=== PATIENT | male | born 1955 | race Caucasian/White ===

== ENCOUNTER 2020-03-21 06:34 | Inpatient (IN) | payer MEDICAID ==
[2020-03-21 07:13] LABS: ALT 17 U/L (4-49); AST 19 U/L (17-59); African American GFR (CKD) >90 (>60 ml/min/1.73 sqM); Albumin 4.3 g/dL (3.5-5.0); Alkaline Phosphatase 67 U/L (38-126); Anion Gap 12 mmol/L; Blood Urea Nitrogen 11 mg/dL (9-20); Calcium 9.5 mg/dL (8.4-10.2); Carbon Dioxide 24 mmol/L (22-30); Chloride 104 mmol/L (98-107); Glucose 241 mg/dL (74-99); Magnesium 1.7 mg/dL (1.6-2.3); Non-African American GFR(CKD) >90 (>60 ml/min/1.73 sqM); Potassium 3.7 mmol/L (3.5-5.1); Sodium 140 mmol/L (137-145); Total Bilirubin 0.4 mg/dL (0.2-1.3); Total Protein 7.3 g/dL (6.3-8.2)
--- NOTE | 2020-03-21 07:21 | ED ---
Arrhythmia/Palpitations HPI - General Source: patient, RN notes reviewed Mode of arrival: ambulatory Limitations: no limitations <Peter Ching - Last Filed: 03/21/20 07:44> <Luis Conklin - Last Filed: 03/21/20 08:04> - General Chief Complaint: Arrhythmia/Palpitations Stated Complaint: Low heart rate Time Seen by Provider: 03/21/20 06:43 - History of Present Illness Initial Comments: This a 64-year-old male presents emergency Department chief complaint of palpitations, dizziness and shortness breath. Patient states that he felt sick last few weeks was treated by his PCP for acute bronchitis. Patient was placed on Augmentin at this time. Patient states that his congestion still lingers. Patient states on he was grocery shopping states he went to bend down to pick something up states that he got lightheaded and nearly passed out at that time. Patient states also yesterday he was driving a tractor in which she felt that he is having another episode where he was in a pass out. Patient denies any current chest pain does have a history of diabetes and hypertension no prior cardiac disease cannot see a environmental lead. Patient has no current abdominal pain, leg swelling, leg pain. (Peter Ching) - Related Data Allergies Allergy/AdvReac Type Severity Reaction Status Date / Time Sulfa (Sulfonamide Allergy Rash/Hives Verified 03/21/20 06:42 Antibiotics) Review of Systems ROS Other: All systems not noted in ROS Statement are negative. <Peter Ching - Last Filed: 03/21/20 07:44> ROS Other: All systems not noted in ROS Statement are negative. <Luis Conklin - Last Filed: 03/21/20 08:04> ROS Statement: Those systems with pertinent positive or pertinent negative responses have been documented in the HPI. Past Medical History Past Medical History: Diabetes Mellitus, Hypertension History of Any Multi-Drug Resistant Organisms: None Reported Past Surgical History: Adenoidectomy, Hernia Repair, Tonsillectomy Past Psychological History: No Psychological Hx Reported Smoking Status: Never smoker Past Alcohol Use History: Occasional Past Drug Use History: None Reported <Peter Ching - Last Filed: 03/21/20 07:44> General Exam Limitations: no limitations General appearance: alert, in no apparent distress Head exam: Present: atraumatic, normocephalic, normal inspection Eye exam: Present: normal appearance, PERRL, EOMI. Absent: scleral icterus, conjunctival injection, periorbital swelling ENT exam: Present: normal exam, normal oropharynx, mucous membranes moist Neck exam: Present: normal inspection, full ROM. Absent: tenderness, meningismus, lymphadenopathy Respiratory exam: Present: normal lung sounds bilaterally. Absent: respiratory distress, wheezes, rales, rhonchi, stridor Cardiovascular Exam: Present: normal rhythm, bradycardia, normal heart sounds. Absent: systolic murmur, diastolic murmur, rubs, gallop, clicks GI/Abdominal exam: Present: soft, normal bowel sounds. Absent: distended, tenderness, guarding, rebound, rigid Neurological exam: Present: alert, oriented X3, CN II-XII intact Skin exam: Present: warm, dry, intact, normal color. Absent: rash <Peter Ching - Last Filed: 03/21/20 07:44> Course Vital Signs 03/21/20 06:37 Temperature 98 F Pulse Rate 32 L Respiratory 18 Rate Blood Pressure 156/66 O2 Sat by Pulse 98 Oximetry EKG Findings - EKG Comments: EKG Findings:: Sinus bradycardia with arrhythmia noted, rate of 43 AZ 168 QRS 156 QT/QTC 486/410 <Peter Ching - Last Filed: 03/21/20 07:44> Medical Decision Making - Lab Data Result diagrams: 03/21/20 06:52 03/21/20 06:52 <Peter Ching - Last Filed: 03/21/20 07:44> - Lab Data Result diagrams: 03/21/20 06:52 03/21/20 06:52 <Luis Conklin - Last Filed: 03/21/20 08:04> - Medical Decision Making 64-year-old male presents emergency department for dizziness, bradycardia. Patient's EKG reveals evidence of bradycardia in the low 40s, patient has dropped in the 30s on monitor. Patient is symptomatic dizziness, near syncopal episode. Patient will have mild hyperglycemia. Patient will be admitted for cardiology evaluation for symptomatically bradycardia, or syncope (Peter Ching) Patient reexamined and reevaluated by myself, Dr. Conklin. Patient resting comfortably in bed. Patient states he has had near syncopal episodes and palpitations. Patient's heart rate has been bradycardic and somewhat irregular. Frequent PVCs. Monitor observed. I do agree with PA findings. This includes diagnostic interpretation and treatment plan. Case was discussed in detail with Dr. Lori jarquin, covering for hospital call, who will admit. Cardiology will be placed on consult. (Luis Conklin) - Lab Data Lab Results 03/21/20 03/21/20 03/21/20 Range/Units 06:52 06:52 06:52 WBC 5.4 (3.8-10.6) k/uL RBC 4.74 (4.30-5.90) m/uL Hgb 14.4 (13.0-17.5) gm/dL Hct 43.4 (39.0-53.0) % MCV 91.5 (80.0-100.0) fL MCH 30.3 (25.0-35.0) pg MCHC 33.2 (31.0-37.0) g/dL RDW 14.0 (11.5-15.5) % Plt Count 209 (150-450) k/uL Neutrophils % 72 % Lymphocytes % 17 % Monocytes % 6 % Eosinophils % 3 % Basophils % 1 % Neutrophils # 3.8 (1.3-7.7) k/uL Lymphocytes # 0.9 L (1.0-4.8) k/uL Monocytes # 0.3 (0-1.0) k/uL Eosinophils # 0.2 (0-0.7) k/uL Basophils # 0.0 (0-0.2) k/uL PT 10.5 (9.0-12.0) sec INR 1.0 (<1.2) APTT 25.7 (22.0-30.0) sec Sodium 140 (137-145) mmol/L Potassium 3.7 (3.5-5.1) mmol/L Chloride 104 (98-107) mmol/L Carbon Dioxide 24 (22-30) mmol/L Anion Gap 12 mmol/L BUN 11 (9-20) mg/dL Creatinine 0.80 (0.66-1.25) mg/dL Est GFR (CKD-EPI)AfAm >90 (>60 ml/min/1.73 sqM) Est GFR (CKD-EPI)NonAf >90 (>60 ml/min/1.73 sqM) Glucose 241 H (74-99) mg/dL Calcium 9.5 (8.4-10.2) mg/dL Magnesium 1.7 (1.6-2.3) mg/dL Total Bilirubin 0.4 (0.2-1.3) mg/dL AST 19 (17-59) U/L ALT 17 (4-49) U/L Alkaline Phosphatase 67 (38-126) U/L Troponin I (0.000-0.034) ng/mL Total Protein 7.3 (6.3-8.2) g/dL Albumin 4.3 (3.5-5.0) g/dL TSH 2.270 (0.465-4.680) mIU/L 03/21/20 Range/Units 06:52 WBC (3.8-10.6) k/uL RBC (4.30-5.90) m/uL Hgb (13.0-17.5) gm/dL Hct (39.0-53.0) % MCV (80.0-100.0) fL MCH (25.0-35.0) pg MCHC (31.0-37.0) g/dL RDW (11.5-15.5) % Plt Count (150-450) k/uL Neutrophils % % Lymphocytes % % Monocytes % % Eosinophils % % Basophils % % Neutrophils # (1.3-7.7) k/uL Lymphocytes # (1.0-4.8) k/uL Monocytes # (0-1.0) k/uL Eosinophils # (0-0.7) k/uL Basophils # (0-0.2) k/uL PT (9.0-12.0) sec INR (<1.2) APTT (22.0-30.0) sec Sodium (137-145) mmol/L Potassium (3.5-5.1) mmol/L Chloride (98-107) mmol/L Carbon Dioxide (22-30) mmol/L Anion Gap mmol/L BUN (9-20) mg/dL Creatinine (0.66-1.25) mg/dL Est GFR (CKD-EPI)AfAm (>60 ml/min/1.73 sqM) Est GFR (CKD-EPI)NonAf (>60 ml/min/1.73 sqM) Glucose (74-99) mg/dL Calcium (8.4-10.2) mg/dL Magnesium (1.6-2.3) mg/dL Total Bilirubin (0.2-1.3) mg/dL AST (17-59) U/L ALT (4-49) U/L Alkaline Phosphatase (38-126) U/L Troponin I <0.012 (0.000-0.034) ng/mL Total Protein (6.3-8.2) g/dL Albumin (3.5-5.0) g/dL TSH (0.465-4.680) mIU/L Disposition Time of Disposition: 07:46 <Peter Ching - Last Filed: 03/21/20 07:44> <Luis Conklin - Last Filed: 03/21/20 08:04> Clinical Impression: Symptomatic bradycardia, Near syncope Disposition: ADMITTED IP TO THIS [facility] Condition: Fair Referrals: Link Gerard DO [Primary Care Provider] - 1-2 days
[2020-03-21 07:27] LABS: Partial Thromboplastin Time 25.7 sec (22.0-30.0); Prothrombin Time 10.5 sec (9.0-12.0)
[2020-03-21 07:30] LABS: Basophils % (A) 1 %; Eosinophils # (A) 0.2 k/uL (0-0.7); Eosinophils % (A) 3 %; HCT 43.4 % (39.0-53.0); HGB 14.4 gm/dL (13.0-17.5); Lymphocytes # (A) 0.9 k/uL (1.0-4.8); Lymphocytes % (A) 17 %; MCH 30.3 pg (25.0-35.0); MCHC 33.2 g/dL (31.0-37.0); MCV 91.5 fL (80.0-100.0); Monocytes # (A) 0.3 k/uL (0-1.0); Monocytes % (A) 6 %; Neutrophils # (A) 3.8 k/uL (1.3-7.7); Neutrophils % (A) 72 %; Platelet Count 209 k/uL (150-450); RBC 4.74 m/uL (4.30-5.90); WBC 5.4 k/uL (3.8-10.6)
[2020-03-21] MEDS ORDERED: ACETAMINOPHEN TAB 325 MG TAB PO PRN ×2 (07:46→16:49)
--- NOTE | 2020-03-21 07:49 | XR ---
EXAMINATION TYPE: XR chest 2V DATE OF EXAM: 03/21/2020 COMPARISON: None INDICATION: Dysrhythmia TECHNIQUE: Frontal and lateral views of the chest are obtained. FINDINGS: The heart size is normal. The pulmonary vasculature is normal. The lungs are clear. IMPRESSION: 1. No acute pulmonary process.
[2020-03-21] MEDS: LISINOPRIL 20 MG TAB PO SCH (10:50)
[2020-03-21] MEDS ORDERED: amLODIPine 10 MG TAB PO STA (10:57)
[2020-03-21] MEDS ORDERED: NALOXONE 0.4 MG/ML 1 ML VIAL IV PRN (11:02)
--- NOTE | 2020-03-21 11:44 | CONS ---
CONSULTATION Mr. Vila is a 64-year-old male with known history of diabetes and hypertension who presented with symptoms of dizziness and dyspnea. He has been having those symptoms for a few weeks. Last week while [facility], he felt dizzy and had a presyncopal episode. He returned from [place] about 3 weeks ago, down in [place], had a bronchitis episode, subsequently was treated with Augmentin upon his return by Dr. Colon and that has felt better, but he continues to be dyspneic and fatigued yesterday. He was working on his tractor when he felt quite dizzy, but did not have any syncope. He denies any palpitation. He checked his blood pressure and found that his heart rate is in the 30s. He denies any history of PND, orthopnea, or peripheral edema. He has no prior cardiac history and his level of activity is stable atrial until recently. He has no history of smoking. He is diabetic and hypertensive. MEDICATIONS: At home include metformin 5 mg 3 times a day, amlodipine 10 mg daily, Actos 30 mg daily, Vasotec 20 mg daily, Trulicity, and Xanax. REVIEW OF SYSTEMS: RESPIRATORY SYSTEM: He has no documented history of asthma and he had a recent bronchitis but no further cough. GI SYSTEM: No recent GI bleed, no peptic ulcer disease. SYSTEM: No dysuria or hematuria. NERVOUS SYSTEM: No stroke or seizure. PHYSICAL EXAMINATION: He is a 64-year-old male, alert, oriented, in no apparent distress. Blood pressure 172/70 with a heart rate in the 50, afebrile. HEAD: Normocephalic. EYES: Sclerae nonicteric. NECK: Good upstroke, no bruit. No jugular venous distention. LUNGS: Clear to auscultation. HEART; Bradycardic, irregular. S1, S2. No S3 with systolic murmur at the base. No diastolic murmur, no rub. ABDOMEN: Soft, nontender. Positive bowel sounds, no organomegaly. EXTREMITIES: No edema. Of note, the patient has been told about a year ago on the EKG "that he had slowing down of the left side of the heart." LAB DATA: Chest x-ray revealed a no evidence of infiltrate. His troponin is less than 0.012. TSH 2.2, BUN and creatinine 11 and 0.8, potassium 3.7, hemoglobin of 14.4. EKG revealed a sinus mechanism with evidence of complete heart block and left bundle branch block. IMPRESSION: 1. Symptoms of dizziness with complete heart block, probable has been going on for a few weeks from that the description. Patient had episode of presyncope but no full syncope about a week ago. 2. Underlying left bundle branch block, probably chronic. 3. Hypertension. 4. Diabetes mellitus. 5. History of obstructive sleep apnea. Patient not using his CPAP. RECOMMENDATION: From the cardiac standpoint, I will obtain echocardiogram with Doppler. I have discussed his case with Dr. Ybarra and with the patient. Patient would require permanent pacemaker implantation. The rationale behind the procedure as well as the rationale was discussed with the patient who is in full understanding and agreement. Thank you for this consult. Will follow with you. CHARLI / ROCCO: [id number] /
[2020-03-21 11:51] LABS: Cholesterol 154 mg/dL (<200); HDL Cholesterol 45 mg/dL (40-60); LDL Cholesterol,Calculated 88 mg/dL (0-99); Triglycerides 106 mg/dL (<150)
[2020-03-21 12:07] LABS: Glucose,Whole Blood 157 mg/dL (75-99)
[2020-03-21] MEDS ORDERED: SODIUM CHLORIDE 0.9% 1,000 ML IV SCH ×2 (12:15)
[2020-03-21] MEDS ORDERED: IV FLUID CONTINUATION 1,000 ML IV ONE (13:29)
[2020-03-21] MEDS ORDERED: PROPOFOL 10 MG/ML 20 ML VIAL IV ONE (13:30)
[2020-03-21] MEDS ORDERED: HEPARIN SODIUM,PORCINE 5,000 UNIT/ML 1 ML VIAL ONE (13:30)
[2020-03-21] MEDS ORDERED: diphenhydrAMINE 50 MG/ML 1 ML VIAL ONE (13:30)
[2020-03-21] MEDS ORDERED: fentaNYL (PF) 50 MCG/ML 2 ML AMP ONE (13:30)
[2020-03-21] MEDS ORDERED: MIDAZOLAM 2 MG/2 ML VIAL ONE (13:30)
[2020-03-21] MEDS ORDERED: IOPAMIDOL-370 50ML BTL INJ ONE (14:10)
[2020-03-21] MEDS: ceFAZolin 1,000 MG in SODIUM CHLORIDE 0.9% IRRIGATIO 250 ML IRRIGATION ONE ×2 (14:13→14:18)
[2020-03-21] MEDS ORDERED: LIDOCAINE 1% INJ 10MG/ML (20 ML MDV) ONE (14:19)
[2020-03-21] MEDS ORDERED: LIDOCAINE 1% INJ 10MG/ML (20 ML MDV) SQ ONE ×3 (14:38→14:46)
--- NOTE | 2020-03-21 16:59 | P.PCN ---
Preoperative Diagnosis: Extended procedure duration Mapping of the His bundle was difficult on account of instability despite the long sheath on account of complete heart block. The His bundle was mapped and although consent His bundle signals were easily obtained, stability was an issue.. After multiple attempts stable position was achieved however his thresholds are elevated. multiple attempts were made to mapped the His bundle, maintained stable lead position. The best His bundle threshold was at through 3.2 V at 1 ms with narrowing of the QRS to less than 120 ms with nonselective pacing. The patient tolerated the procedure without any acute complications
--- NOTE | 2020-03-21 17:25 | PCN ---
PROCEDURE NOTE Mr. Vila is a 64-year-old male patient who has known complete heart block who presented with symptomatic high-grade AV block with an underlying left bundle branch block. His LV function was stated to be within normal limits. He was brought in for biventricular pacemaker implantation with standard pacing. He will be pacing the right ventricle at 100%. Patient was brought to the EP lab in a fasting state. Written informed consent was obtained prior to the procedure. The left shoulder area was prepped and draped as per protocol. Lidocaine 1% was used for local anesthesia. A 4 cm incision was made parallel to the deltopectoral groove, about 1.5 cm medial to it. The incision was carried down to the level of the pectoralis muscle. A subfascial pocket was made. Hemostasis was assured. The left axillary vein was accessed at 3 separate points under fluoroscopy, and via appropriately-sized introducer sheaths 3 leads were positioned. The atrial lead was a Medtronic model #5076, 52 cm in length, and serial #[id number]. This was screwed in the right atrial appendage. P-waves were 6.3 mV, pacing impedance 722 ohms, pacing threshold 1.25 V at 0.4 milliseconds. Ten-volt test was negative. The right ventricular lead was a Medtronic model #5076, 58 cm in length, and serial number [id number]. This was positioned in the RV apex. With pacing, the patient had become dependent. The pacing impedance was 703 ohms. But prior to that it was 18 mV. Pacing threshold was 0.7 V at 0.4 milliseconds. Ten-volt test was negative. The His bundle was mapped with a model #3830 lead, 69 cm in length, and serial number [id number]. This was the long part of the procedure, and although the His bundle was very easily mapped and infra-Hisian block was demonstrated repeatedly, the thresholds were high. Therefore multiple attempts were made to get the best possible threshold. Finally, nonselective pacing was noted up to 3 V at 1 millisecond. Thereafter, right ventricular capture was noted with total loss of capture at 1.25 V at 1 millisecond. This is the best threshold that could be achieved. All leads were secured to the underlying pectoralis fascia after removing the sheaths. The leads were connected to the generator (Cindy CRTP MRI, model #W1TR02, serial #[id number]. Leads and the generator were then placed in the subfascial pocket. The wound was closed in 3 layers and dressed per protocol. RESULT: Successful biventricular pacemaker implantation for complete heart block with underlying left bundle branch block to avoid 100% RV only pacing. The device was programmed to DDD mode with physiologic septal pacing. The patient tolerated the procedure well without any acute complications. MMODL / IJN: [id number] /
[2020-03-21 18:58] VITALS: RESP 18
--- NOTE | 2020-03-21 19:21 | P.HPIM ---
History of Present Illness H&P Date: 03/21/20 Chief Complaint: Syncope 64 year old male with PMH of hypertension and diabetes mellitus presents to the ED after a syncopal episode. Patient reports intermittent dizziness along with blacking out that his been ongoing for the past couple months. Symptoms have been getting more frequent that prompted the patient to come to the ED. Patient states that he was in [employer] last bending down reaching for [employer] when he "blacked out". Yesterday, he was on a tractor trailer when he felt faint for about 1-2 minutes. He measured a pulse of 39 during that time. This was concerning to him which prompted him to come to the ED. Patient otherwise has no complaints. He denies any headache, lower extremity edema, nausea or vomiting, fever chills, cough, chest pain, shortness of breath, palpitations, changes in urination or bowel habits. No changes in appetite or weight. He denies any numbness/weakness/tingling of the extremities. In the ED, vital signs were stable except for pulse of 30. CBC was unremarkable. D-dimer was negative. INR was within normal limits. CMP showed glucose of 241. Troponin was less than 0.0122, EKG showing complete heart block. Cholesterol panel was within normal limits. TSH was normal. Chest x-ray was negative. Patient is admitted for presyncopal symptoms with cardiology consultation for symptomatic bradycardia. Review of Systems Pertinent positives and negatives as discussed in HPI, a complete review of systems was performed and all other systems are negative. Past Medical History Past Medical History: Diabetes Mellitus, Hypertension History of Any Multi-Drug Resistant Organisms: None Reported Past Surgical History: Adenoidectomy, Hernia Repair, Tonsillectomy Past Anesthesia/Blood Transfusion Reactions: No Reported Reaction Past Psychological History: No Psychological Hx Reported Smoking Status: Never smoker Past Alcohol Use History: Occasional Past Drug Use History: None Reported - Past Family History Father Family Medical History: AICD/Pacemaker Additional Family Medical History / Comment(s): QUESTIONABLE CAD Mother Family Medical History: AICD/Pacemaker Additional Family Medical History / Comment(s): questionable CAD Medications and Allergies Home Medications Medication Instructions Recorded Confirmed Type ALPRAZolam [Xanax] 0.5 mg PO HS 03/21/20 03/21/20 History Dulaglutide [Trulicity] 0.75 mg SQ DIEHL@2100 03/21/20 03/21/20 History Enalapril [Vasotec] 20 mg PO DAILY 03/21/20 03/21/20 History Pioglitazone [Actos] 30 mg PO DAILY 03/21/20 03/21/20 History amLODIPine [Norvasc] 10 mg PO HS 03/21/20 03/21/20 History metFORMIN HCL ER [Glucophage Xr] 500 mg PO TID-W/MEALS 03/21/20 03/21/20 History Allergies Allergy/AdvReac Type Severity Reaction Status Date / Time Sulfa (Sulfonamide Allergy Rash/Hives Verified 03/21/20 08:25 Antibiotics) Physical Exam Vitals: Vital Signs Temp Pulse Pulse Resp BP BP Pulse Ox 03/21/20 16:00 18 03/21/20 12:00 98.2 F 18 199/90 99 03/21/20 09:26 98 F 50 L 20 172/77 98 03/21/20 09:06 98.4 F 40 L 18 222/96 100 03/21/20 09:00 50 L 20 172/77 98 03/21/20 08:36 52 L 20 98 03/21/20 08:00 59 L 20 144/79 98 03/21/20 06:37 98 F 32 L 18 156/66 98 Intake and Output 03/21/20 03/21/20 03/21/20 06:59 14:59 22:59 Intake Total 50 240 Output Total 350 Balance 50 -110 Intake: IV 50 Oral 240 Output: Urine 350 Other: Voiding Method Urinal Urinal Weight 102.058 kg 102.058 kg General: [non toxic], [no distress], [appears at stated age] Derm: [warm], [dry] Head: [atraumatic], [normocephalic], [symmetric] Eyes: [EOMI], [no lid lag], [anicteric sclera] Mouth: [no lip lesion], [mucus membranes moist] Cardiovascular: [S1S2 reg, heart rate of 75], [no murmur], [positive posterior tibial pulse bilateral], [left chest dressing clean dry and intact] Lungs: [CTA bilateral], [no rhonchi, no rales] , [no accessory muscle use] Abdominal: [soft], [ nontender to palpation], [no guarding], [no appreciable organomegaly] Ext: [no gross muscle atrophy], [no edema], [no contractures] Neuro: [ CN II-XI grossly intact], [no focal neuro deficits] Psych: [Alert], [oriented], [appropriate affect] Results CBC & Chem 7: 03/21/20 06:52 03/21/20 06:52 Labs: Abnormal Lab Results - Last 24 Hours (Table) 03/21/20 03/21/20 03/21/20 Range/Units 06:52 06:52 12:06 Lymphocytes # 0.9 L (1.0-4.8) k/uL Glucose 241 H (74-99) mg/dL POC Glucose (mg/dL) 157 H (75-99) mg/dL Thrombosis Risk Factor Assmnt - Choose All That Apply Any of the Below Risk Factors Present?: No Each Risk Factor Represents 2 Points: Age 61-74 years Other congenital or acquired thrombophilia - If yes, enter type in comment: No Thrombosis Risk Factor Assessment Total Risk Factor Score: 2 Thrombosis Risk Factor Assessment Level: Low Risk Assessment and Plan Assessment: Presyncope likely from complete heart block post pacemaker Diabetes mellitus with hyperglycemia Hypertension His presyncopal symptoms are likely related to complete heart block. He is underwent pacemaker placement in his heart rate is now 75. D-dimer negative with no concerns for PE. Plans: Continue cefazolin post pacemaker placement. Morphine 2 mg IV every 4 hours as needed for pain. Telemetry monitoring. Follow echocardiogram. [id number] glucose 157. Plans: Insulin sliding scale. Regular Accu-Cheks. Hypoglycemic precautions. BP 172/77. Plans: Continue amlodipine. Continue lisinopril. Monitor vitals, adjust medications as necessary. DVT prophylaxis: [SCD boots] Discussed with: [Patient] Anticipated discharge: [2-3 days] Anticipated discharge place: [Home] A total of [45] minutes was spent on the care of this complex patient more than 50% of the time was spent in counseling and care coordination. Patient names his daughter Katja decision maker if he can't make decisions for himself. Patient elected to be full code.
[2020-03-21] MEDS: MORPHINE SULFATE 2 MG/ML SYRINGE IVP PRN (20:05)
[2020-03-21 20:46] LABS: Glucose,Whole Blood 203 mg/dL (75-99)
[2020-03-21] MEDS ORDERED: amLODIPine 10 MG TAB PO SCH (21:00)
[2020-03-21] MEDS ORDERED: ALPRAZolam 0.5 MG TAB PO SCH (21:00)
[2020-03-22] MEDS: INSULIN ASPART (NovoLOG) 100 UNIT/ML VIAL SQ SCH ×4 (00:18→12:32)
[2020-03-22] MEDS: MORPHINE SULFATE 2 MG/ML SYRINGE IVP PRN (05:06)
[2020-03-22 05:55] LABS: Glucose,Whole Blood 148 mg/dL (75-99)
[2020-03-22 06:27] LABS: African American GFR (CKD) >90 (>60 ml/min/1.73 sqM); Anion Gap 8 mmol/L; Blood Urea Nitrogen 14 mg/dL (9-20); Calcium 8.8 mg/dL (8.4-10.2); Carbon Dioxide 26 mmol/L (22-30); Chloride 104 mmol/L (98-107); Glucose 123 mg/dL (74-99); Non-African American GFR(CKD) 80 (>60 ml/min/1.73 sqM); Potassium 3.3 mmol/L (3.5-5.1); Sodium 138 mmol/L (137-145)
--- NOTE | 2020-03-22 07:26 | XR ---
EXAMINATION TYPE: XR chest 2V DATE OF EXAM: 03/22/2020 COMPARISON: 03/21/2020 HISTORY: Lead placement check TECHNIQUE: Frontal and lateral views of the chest are obtained. FINDINGS: There is a new multi lead left-sided cardiac device placed. One atrial lead and 2 ventricu lar leads appear to be present. No postprocedure pneumothorax seen. New multifocal linear right basil ar and retrocardiac airspace disease likely relates to atelectasis. Chronic slight right hemidiaphrag m elevation. The cardiac silhouette size is within normal limits. No acute osseous process. IMPRESSION: Newly placed multilead left-sided cardiac device with no postprocedural pneumothorax. Mu ltifocal bibasilar linear airspace disease is likely on the basis of atelectasis.
[2020-03-22] MEDS: LISINOPRIL 20 MG TAB PO SCH (08:47)
[2020-03-22] MEDS ORDERED: LISINOPRIL 20 MG TAB PO SCH (09:00)
[2020-03-22] MEDS ORDERED: POTASSIUM CHLORIDE ER 20 MEQ TAB.ER PO STA (09:27)
[2020-03-22] MEDS ORDERED: ATORVASTATIN 40 MG TAB PO SCH (09:30)
--- NOTE | 2020-03-22 10:19 | PN ---
PROGRESS NOTE Mr. Vila is a 64-year-old male who presented with symptoms of dizziness and was found to have a complete heart block with underlying left bundle branch block, underwent a permanent pacemaker implantation yesterday by Dr. Ybarra with bi ventricle pacing. He has some dizziness this morning, but he received pain medication earlier. He denies any chest pain, his breathing is unchanged and stable. No palpitation. No syncope. On the rhythm strip, he has 100% pacing. He had no evidence of ventricular ectopic activity. He continues to be at this time on amlodipine 10 mg daily, lisinopril 40 mg daily. PHYSICAL EXAMINATION: Blood pressure 126/70 with a heart rate in the 70s. LUNGS: Clear. HEART: Regular rate and rhythm, S1, S2. No S3. No rub. Pacemaker site clean. ABDOMEN: Soft, nontender. EXTREMITIES: No edema. LAB DATA: Revealed a BUN and creatinine of 14 and 0.99. His potassium 3.3. His troponin 0.103. He is negative for PCR coronavirus. His echocardiogram report is pending. Chest x-ray revealed no evidence of acute changes. IMPRESSION: 1. Complete heart block status post permanent pacemaker implantation. 2. Hypertension. 3. Diabetes mellitus. 4. Minimal troponin elevation most likely related to the complete heart block. RECOMMENDATION: I will review the results of his echocardiogram. Increase his activity. Will await interrogation of his device. He is doing well. I would expect he should be able to be discharged home today and follow up as an outpatient. He will undergo further cardiac workup as an outpatient in view of his prior history. I will add to his regimen as well a statin because of the history of diabetes mellitus. MMODL / IJN: [id number] /
--- NOTE | 2020-03-22 10:36 | ECHOF ---
Referral Reason:[facility] MEASUREMENTS -------- HEIGHT: 177.8 cm WEIGHT: 102.1 kg BP: 156/66 RVIDd: 3.4 cm (< 3.3) IVSd: 1.1 cm (0.6 - 1.1) LVIDd: 5.0 cm (3.9 - 5.3) LVPWd: 1.3 cm (0.6 - 1.1) IVSs: 1.5 cm LVIDs: 3.1 cm LVPWs: 1.8 cm LAESV Index (A-L): 39.05 ml/m Ao Diam: 3.6 cm (2.0 - 3.7) AV Cusp: 2.4 cm (1.5 - 2.6) MV EXCURSION: 19.089 mm (> 18.000) MV EF SLOPE: 138 mm/s (70 - 150) EPSS: 0.3 cm RAP: 5.00 mmHg RVSP: 34.48 mmHg FINDINGS -------- Resting bradycardia (HR<60bpm). This was a technically difficult study with suboptimal apical views. The left ventricular size is normal. There is severe concentric left ventricular hypertrophy. Ove rall left ventricular systolic function is normal with, an EF between 55 - 60 %. The right ventricle is mildly enlarged. LA is moderately dilated 34-39 ml/m2 The right atrium was not well visualized. 5.0mg of Lumason was utilized for enhancement of images Interatrial and interventricular septum intact. The aortic valve is trileaflet and appears structurally normal. There is no evidence of aortic regu rgitation. There is no evidence of aortic stenosis. Zbnn-ss-pzrliopd mitral regurgitation is present. Mild tricuspid regurgitation present. There is mild pulmonary hypertension. The right ventricular systolic pressure, as measured by Doppler, is 34.48mmHg. There is no pulmonic regurgitation present. The aortic root size is normal. IVC Not well visulized. There is no pericardial effusion. CONCLUSIONS -------- 1. Resting bradycardia (HR<60bpm). 2. This was a technically difficult study with suboptimal apical views. 3. The left ventricular size is normal. 4. There is severe concentric left ventricular hypertrophy. 5. Overall left ventricular systolic function is normal with, an EF between 55 - 60 %. 6. The right ventricle is mildly enlarged. 7. LA is moderately dilated 34-39 ml/m2 8. The right atrium was not well visualized. 9. 5.0mg of Lumason was utilized for enhancement of images 10. Interatrial and interventricular septum intact. 11. The aortic valve is trileaflet and appears structurally normal. 12. There is no evidence of aortic regurgitation. 13. There is no evidence of aortic stenosis. 14. Dkba-jg-gtfvknod mitral regurgitation is present. 15. Mild tricuspid regurgitation present. 16. There is mild pulmonary hypertension. 17. The right ventricular systolic pressure, as measured by Doppler, is 34.48mmHg. 18. There is no pulmonic regurgitation present. 19. The aortic root size is normal. 20. IVC Not well visulized. 21. There is no pericardial effusion. [employer] INSTALLER SUPERVISOR: Patti Edward RDCS
[2020-03-22 11:55] LABS: Glucose,Whole Blood 138 mg/dL (75-99)
[2020-03-22 12:03] VITALS: BP 142/78; PULSE 72; TEMP 98.4
--- NOTE | 2020-03-22 13:38 | P.DS ---
Providers Date of admission: 03/21/20 07:46 Expected date of discharge: 03/22/20 Attending physician: Neema Del Castillo DO Consults: 03/21/20 07:47 Consult Physician Urgent Consulting Provider: Onur Ybarra Consult Reason/Comments: Symptomatic bradycardia, near syncope Do you want consulting provider notified?: Yes Primary care physician: [facility] Course: 64 year old male with PMH of hypertension and diabetes mellitus presents to the ED after a syncopal episode. Patient reports intermittent dizziness along with blacking out that his been ongoing for the past couple months. Symptoms have been getting more frequent that prompted the patient to come to the ED. Patient states that he was in [employer] last bending down reaching for Doritos when he "blacked out". Yesterday, he was on a tractor trailer when he felt faint for about 1-2 minutes. He measured a pulse of 39 during that time. This was concerning to him which prompted him to come to the ED. Patient otherwise has no complaints. He denies any headache, lower extremity edema, nausea or vomiting, fever chills, cough, chest pain, shortness of breath, palpitations, changes in urination or bowel habits. No changes in appetite or weight. He denies any numbness/weakness/tingling of the extremities. In the ED, vital signs were stable except for pulse of 30. CBC was unremarkable. D-dimer was negative. INR was within normal limits. CMP showed glucose of 241. Troponin was less than 0.0122, EKG showing complete heart block. Cholesterol panel was within normal limits. TSH was normal. Chest x-ray was negative. Patient is admitted for presyncopal symptoms with cardiology consultation for symptomatic bradycardia. His syncopal symptoms were thought to be related to complete heart block. Electrophysiology was consulted and he underwent pacemaker placement. D-dimer was negative with no concerns for PE. Bernal virus testing was negative. He was given cefazolin post pacemaker placement. His pain was controlled with morphine as needed. Echocardiogram was ordered which showed EF 55-60% with severe concentric LVH. Patient was seen and examined. No acute events overnight. Patient reports left arm soreness from the procedure yesterday. He did report some dizziness this morning but states likely related to morphine injection. He denies any chest pain, shortness of breath or palpitations. No nausea or vomiting. No fever or chills. Ambulating without any concerns. General: [non toxic], [no distress], [appears at stated age] Derm: [warm], [dry] Head: [atraumatic], [normocephalic], [symmetric] Eyes: [EOMI], [no lid lag], [anicteric sclera] Mouth: [no lip lesion], [mucus membranes moist] Cardiovascular: [S1S2 reg, heart rate of 75], [no murmur], [positive posterior tibial pulse bilateral], [left chest dressing clean dry and intact] Lungs: [CTA bilateral], [no rhonchi, no rales] , [no accessory muscle use] Abdominal: [soft], [ nontender to palpation], [no guarding], [no appreciable organomegaly] Ext: [no gross muscle atrophy], [no edema], [no contractures] Neuro: [no focal neuro deficits] Psych: [Alert], [oriented], [appropriate affect] Presyncope likely from complete heart block post pacemaker Diabetes mellitus with hyperglycemia Stable Diastolic CHF Hypertension His presyncopal symptoms are likely related to complete heart block. He is underwent pacemaker placement in his heart rate is now 72-88. D-dimer negative with no concerns for PE. Plans: Continue cefazolin post pacemaker placement. Morphine 2 mg IV every 4 hours as needed for pain. Telemetry monitoring. Follow echocardiogram. Jlshv-wz-nspl glucose 157. Plans: Insulin sliding scale. Regular Accu-Cheks. Hypoglycemic precautions. Cardiology restarted home medications. Echocardiogram shows severe concentric LVH with conservative systolic function. Plans: Needs adequate blood pressure control. BP 142/78. Plans: Continue amlodipine. Continue lisinopril. Monitor vitals, adjust medications as necessary. [Patient's symptoms have resolved. His heart rate has been within normal limits since pacemaker placement. Pacemaker to be interrogated today. Possible DC today if cardiology cleared. This complex discharge took about 35 minutes to complete. ] Pertinent Studies: Chest x-ray, echocardiogram Procedures: Pacemaker placement Patient Condition at Discharge: Stable Plan - Discharge Summary Discharge Rx Participant: Yes New Discharge Prescriptions: New Atorvastatin [Lipitor] 40 mg PO DAILY #30 tab Continue amLODIPine [Norvasc] 10 mg PO HS Pioglitazone [Actos] 30 mg PO DAILY Enalapril [Vasotec] 20 mg PO DAILY metFORMIN HCL ER [Glucophage Xr] 500 mg PO TID-W/MEALS ALPRAZolam [Xanax] 0.5 mg PO HS Dulaglutide [Trulicity] 0.75 mg SQ DIEHL@2100 Discharge Medication List ALPRAZolam [Xanax] 0.5 mg PO HS 03/21/20 [History] Dulaglutide [Trulicity] 0.75 mg SQ DIEHL@2100 03/21/20 [History] Enalapril [Vasotec] 20 mg PO DAILY 03/21/20 [History] Pioglitazone [Actos] 30 mg PO DAILY 03/21/20 [History] amLODIPine [Norvasc] 10 mg PO HS 03/21/20 [History] metFORMIN HCL ER [Glucophage Xr] 500 mg PO TID-W/MEALS 03/21/20 [History] Atorvastatin [Lipitor] 40 mg PO DAILY #30 tab 03/22/20 [Rx] Follow up Appointment(s)/Referral(s): Onur Ybarra MD [STAFF PHYSICIAN] - 1 Week Link Gerard DO [Primary Care Provider] - 1-2 days Activity/Diet/Wound Care/Special Instructions: Diet: Cardiac, Low salt FU PCP within 3 days of DC. FU Cardiology within 1 week of DC. Take all medications as advised. Come back to ED or call 911 for worsening dizziness, chest pain, shortness of breath, palpitations, Discharge Disposition: HOME SELF-CARE
[2020-03-23] MEDS ORDERED: PIOGLITAZONE 30 MG TAB PO SCH (09:00)
[2020-03-23] MEDS ORDERED: metFORMIN 500 MG TAB PO SCH (17:30)
== END 2020-03-22 16:45 | disposition home or self-care (01) | DRG 243 ==
LOC: EC 06:34 → 3SCARD 07:46
PROVIDERS: ADMIT Internal Medicine; ATTEND Internal Medicine
PROC: 02HK3JZ Insertion of Pacemaker Lead into Right Ventricle, Percutaneous Approach (ICD-10-PCS; 2020-03-21)
PROC: 02HL3JZ Insertion of Pacemaker Lead into Left Ventricle, Percutaneous Approach (ICD-10-PCS; 2020-03-21)
PROC: 0JH607Z Insertion of Cardiac Resynchronization Pacemaker Pulse Generator into Chest Subcutaneous Tissue and Fascia, Open Approach (ICD-10-PCS; principal; 2020-03-21 13:15)
PROC: 02H63JZ Insertion of Pacemaker Lead into Right Atrium, Percutaneous Approach (ICD-10-PCS; 2020-03-21 13:15)
DX: I44.2 Atrioventricular block, complete (principal); I50.32 Chronic diastolic (congestive) heart failure; I11.0 Hypertensive heart disease with heart failure; E11.65 Type 2 diabetes mellitus with hyperglycemia; Z11.59 Encounter for screening for other viral diseases; R00.1 Bradycardia, unspecified; I44.7 Left bundle-branch block, unspecified; G47.33 Obstructive sleep apnea (adult) (pediatric); R79.89 Other specified abnormal findings of blood chemistry; R42 Dizziness and giddiness; T40.2X5A Adverse effect of other opioids, initial encounter; Z79.84 Long term (current) use of oral hypoglycemic drugs; Z79.899 Other long term (current) drug therapy; Z98.890 Other specified postprocedural states; Z87.09 Personal history of other diseases of the respiratory system; Z88.2 Allergy status to sulfonamides; Z82.49 Family history of ischemic heart disease and other diseases of the circulatory system
CPT/HCPCS: 33208; 33225; 36415; 71046; 80048; 80053; 80061; 83735; 84132; 84443; 84484; 85025; 85379; 85610; 85730; 87635; 93005; 93306; 99285

== ENCOUNTER → 2020-06-06 | Outpatient (CLI) | payer MEDICAID ==
--- NOTE | 2020-06-06 20:53 | CONS ---
CONSULTATION REASON FOR CONSULTATION: Sleep apnea. This is a 64-year-old male patient who is diabetic and has hypertension. He was recently admitted after a syncope and was found to be in third-degree AV block. The patient had negative cardiac enzymes. D-dimers were negative. Blood work was negative. Thyroid function tests were within normal limits. He underwent permanent pacemaker insertion. He was referred to me for concerns about sleep apnea, as the patient is feeling tired and sleepy. He is living alone. He is . He is not sure if she snores. He carries a BMI of 33.9 and his [place] score is 6. He denies waking up in the middle of the night for choking or gasping sensation. He goes to bed around 10:30 p.m. and wakes up at 7 a.m. in the morning. He wakes up once or twice in the middle of the night. He has no trouble in going back to sleep. He prefers to sleep on his side and stomach. No angina. No palpitations. He has recently passed a stress test. PAST MEDICAL HISTORY: Third-degree AV block, post pacemaker insertion, hypertension, diabetes mellitus. SURGICAL HISTORY: Surgical history includes tonsillectomy, adenoidectomy, hernia repair and pacemaker insertion. DRUG ALLERGIES: NOT KNOWN. SOCIAL HISTORY: The patient is a nonsmoker. No history of alcoholism. No history of IV drugs. OUTPATIENT MEDICATION LIST: Outpatient medication list includes Trulicity 0.75 mg weekly, Vasotec 20 mg p.o. daily, Actos 30 mg p.o. daily, Norvasc 10 mg p.o. daily, metformin 500 mg p.o. t.i.d., and Xanax 0.5 mg at bedtime. FAMILY HISTORY: His twin brother underwent a pacemaker insertion for a similar reason. He has obstructive sleep apnea. Another brother is obese and underwent bariatric surgery. REVIEW OF SYSTEMS: Fourteen-point review of systems was done. Positive findings were all mentioned above in the history of present illness. No respiratory distress. No nausea, vomiting or abdominal pain. No swelling in the lower extremities. No headache. No focal neurological deficits. No confusion. No heartburn. PHYSICAL EXAMINATION: VITAL SIGNS: BP is 135/78, pulse 78, respirations 16, temperature 98.6, saturation 97% on room air. Height is 5 feet 9 inches, weight is 230 pounds and BMI is 33.9. Neck size 16 inches. GENERAL APPEARANCE: Calm, comfortable, obese. HEAD: Atraumatic, normocephalic. NECK: Supple. No JVD. No goiter or neck masses. Mallampati class I. LUNGS: Clear to auscultation. HEART: Heart sounds are regular rate and rhythm. Normal S1, S2. No S3, S4. No murmurs. Pacemaker pocket is dry, clean and intact. ABDOMEN: Soft, nontender. No organomegaly. EXTREMITIES: No edema. No cyanosis or clubbing. IMPRESSION: 1. Third-degree AV block, status post pacemaker insertion. The patient presented with syncope and was found to be in symptomatic third-degree AV block. Workup was negative and the patient underwent a pacemaker insertion. Cardiac stress test is negative. 2. Concern about obstructive sleep apnea, based on his snoring and a body mass index of 33.9. 3. Positive family history of obstructive sleep apnea. 4. Diabetes mellitus. 5. Hypertension. PLAN: 1. Encourage weight loss. 2. Implement good sleep hygiene measures. 3. A screening home sleep study will be done to rule out obstructive sleep apnea. 4. Follow up with Cardiology regarding pacemaker followup and check. 5. Will continue to follow and will make further recommendations if diagnosis of sleep apnea is established. My overall suspicion for symptomatic obstructive sleep apnea is low. MMODL / IJN: [id number] /
== END | disposition home or self-care (01) ==
LOC: SLEEP 16:35
PROVIDERS: ATTEND Internal Medicine Critical Care Medicine
DX: I44.2 Atrioventricular block, complete (principal); R06.83 Snoring; E11.9 Type 2 diabetes mellitus without complications; I10 Essential (primary) hypertension; Z95.0 Presence of cardiac pacemaker; Z83.6 Family history of other diseases of the respiratory system; Z79.84 Long term (current) use of oral hypoglycemic drugs; Z79.899 Other long term (current) drug therapy
CPT/HCPCS: 99211

== ENCOUNTER 2020-06-08 07:55 | Day surgery (SDC) | payer MEDICAID ==
[2020-06-05 13:57] VITALS: BMI 33.0
[2020-06-08] MEDS ORDERED: SODIUM CHLORIDE 0.9% 500 ML 500 ML IV ONE (08:49)
[2020-06-08 08:59] LABS: African American GFR (CKD) >90 (>60 ml/min/1.73 sqM); Blood Urea Nitrogen 19 mg/dL (9-20); Calcium 9.4 mg/dL (8.4-10.2); Carbon Dioxide 27 mmol/L (22-30); Chloride 101 mmol/L (98-107); Glucose 170 mg/dL (74-99); Non-African American GFR(CKD) >90 (>60 ml/min/1.73 sqM); Potassium 4.1 mmol/L (3.5-5.1)
[2020-06-08 09:23] LABS: Anion Gap 9 mmol/L; Sodium 137 mmol/L (137-145)
[2020-06-08] MEDS ORDERED: SODIUM CHLORIDE 0.9% 1,000 ML IV SCH ×2 (11:45)
[2020-06-08] MEDS ORDERED: IOPAMIDOL-370 50ML BTL INJ ONE ×2 (11:50→14:49)
[2020-06-08] MEDS ORDERED: ceFAZolin 1,000 MG in SODIUM CHLORIDE 0.9% IRRIGATIO 250 ML IRRIGATION ONE (12:03)
[2020-06-08] MEDS ORDERED: SODIUM CHLORIDE 0.9% 1,000 ML IV ONE (13:15)
[2020-06-08] MEDS ORDERED: HYDROmorphone (PF) 1 MG/ML ONE (13:31)
[2020-06-08] MEDS ORDERED: PROPOFOL 10 MG/ML 20 ML VIAL IV ONE (13:31)
[2020-06-08] MEDS ORDERED: KETAMINE 10 MG/ML 20 ML VIAL ONE (13:31)
[2020-06-08] MEDS ORDERED: fentaNYL (PF) 50 MCG/ML 2 ML AMP ONE (13:31)
[2020-06-08] MEDS ORDERED: MIDAZOLAM 2 MG/2 ML VIAL ONE (13:31)
--- NOTE | 2020-06-08 13:36 | P.PCN ---
Preoperative Diagnosis: Diagnosis Patient has complete heart block with bradycardia, symptomatic He underwent a biventricular pacemaker with physiologic septal pacing previously Initially the lead functions were within normal limits on day 1 and after about a week Subsequently follow-up check showed: Elevated His bundle lead thresholds Transiently elevated atrial lead thresholds Patient was brought in for cinefluoroscopy of the leads and left upper extremity venogram Cinefluoroscopy of the leads was performed The RV lead was pulled back into the RV inflow when compared to the initial implant The slack in the atrial lead was reduced The slack in the His bundle lead was also reduced The device was interrogated atrial pacing thresholds and RV pacing thresholds were within normal limits despite the fact that the RV lead was pulled back significantly. In the inflow area the RV lead tip is pointing to is the inferior wall. This is a screw-in lead It is possible micro-dislodgment of the His bundle lead tip with a reduction in the heel of the lead as compared to immediate post implant films Left upper extremity venogram 15 mL of IV dye injected in the left arm Mild stenosis in the subclavian vein noted Plan Revision of RV lead and extraction of the His bundle lead and implantation of a new His bundle lead or a new LV lead This may require implantation of a new generator depending upon the LV lead used In view of the significant dislodgment of the RV lead in those thresholds were excellent, the lead screw is pointing inferiorly and needs to be repositioned back into the apex The His bundle lead needs to be redone completely Discussed with the patient I explained this to his daughter who is a physician mechanic assistant The patient has been using his left arm quite vigorously lifting weights doing yard work and lifting furniture I discussed the dose and don'ts, post implant, once again with the patient in the presence of his daughter
[2020-06-08] MEDS ORDERED: LIDOCAINE 1% INJ 10MG/ML (20 ML MDV) ONE ×2 (13:44)
[2020-06-08] MEDS ORDERED: LIDOCAINE 1% INJ 10MG/ML (20 ML MDV) SQ ONE (14:08)
[2020-06-08 15:27] LABS: Glucose,Whole Blood 170 mg/dL (75-99)
[2020-06-08] MEDS ORDERED: HYDROcodone/APAP 5-325MG 1 EACH TAB PO PRN (17:16)
[2020-06-08] MEDS ORDERED: ACETAMINOPHEN TAB 325 MG TAB PO PRN (17:16)
[2020-06-08] MEDS ORDERED: MAGNESIUM OXIDE 400 MG TAB PO PRN (17:18)
[2020-06-08] MEDS ORDERED: ALPRAZolam 0.5 MG TAB PO PRN (17:18)
--- NOTE | 2020-06-08 17:24 | P.PCN ---
Preoperative Diagnosis: Extended procedure duration This is a very long procedure involving 1. Repositioning of the grossly dislodged RV lead. RV lead is discharged into the RV in [place] area. It was repositioned in the RV apex and screwed in. Prior to this 2-D echo did not show any pericardial effusion 2. Extraction of the His bundle lead 3. Attempted positioning of a new His bundle lead. However the thresholds were elevated consistently despite excellent His bundle signals along with a His bundle current of injury. Multiple attempts were made to the thresholds were always high. Therefore this approach was abandoned in favor of LV lead placement 4. Coronary sinus venogram revealed a large anterior lateral vein as well as the lateral vein that status post posteriorly. Diaphragmatic stimulation is noted all along the large anterior lateral vein. Therefore, the lead was removed from this vein. 5. The lateral vein was targeted with a Medtronic screw-in lead would not pass a very tight U shaped bend in the proximal portion of the vein. The [employer] caregivers non medical was successfully placed beyond this tortuosity with however distally diaphragmatic stimulation was noted. More proximally in the vein there was no diaphragmatic stimulation. Excellent thresholds are noted and this lead position was then accepted. 6. A new biventricular pacemaker generator reimplanted to connect the quadripolar LV lead 7. The old biventricular pacemaker generator was explanted. This was the generator with bipolar LV port
[2020-06-08] MEDS ORDERED: amLODIPine 10 MG TAB PO SCH (17:30)
[2020-06-08] MEDS ORDERED: ACETAMINOPHEN IV (For NPO) 1,000 MG in EMPTY BAG 1 BAG IVPB ONE (17:30)
[2020-06-08] MEDS: SODIUM CHLORIDE 0.9% 1,000 ML IV SCH ×2 (17:55→23:04)
[2020-06-08] MEDS: lisinopriL 20 MG TAB PO SCH (20:07)
--- NOTE | 2020-06-08 22:27 | PCN ---
PROCEDURE NOTE Mr. Vila has complete heart block with severe symptomatic bradycardia. He had a biventricular pacemaker implanted with His bundle pacing with excellent thresholds. However, in followup, His bundle lead capture threshold was very high and almost 6 V at 1 millisecond. Transiently the atrial lead capture had also been elevated. The RV lead capture was fine, but on fluoroscopy the RV lead had grossly dislodged into the RV inflow. The His bundle lead also showed micro-dislodgement with loss of heel. The atrial lead also had lost its heel. The patient has been doing all kinds of yard work, lifting furniture, weed whacking, and was instructed not to do so after this revision for at least 6-8 weeks. A 2D echo prior to the procedure did not show any pericardial effusion, but there was mild LV dysfunction, and the patient does have a history of regular alcohol use as well as underlying hypertension and diabetes. Patient was brought to the EP lab in a fasting state. Written informed consent was obtained prior to the procedure. IV antibiotics were administered. An incision was made directly over the previous surgical site and carried down to the level of the generator. The generator was explanted. The leads were freed from the surrounding capsule. First the His bundle lead was disconnected and the lead sleeve was freed. This was connected to the PSA cable and back-up pacing was performed through this lead while the RV lead was repositioned. The RV lead was unscrewed and then carefully repositioned in the RV apex. The pacing threshold was 0.75 V at 0.4 milliseconds, pacing impedance of 551 ohms. Ten-volt test was negative. The atrial lead was interrogated. P-waves 1.9 mV, pacing impedance 399 ohms, pacing threshold 1.2 V at 0.4 milliseconds. No changes were made in the atrial lead position. Following that, the His bundle lead was extracted and the exit site was oversewn. Access was obtained in the left axillary vein and a His bundle sheath was placed. Via this, His bundle lead was placed. His bundle mapping was performed. We obtained excellent His bundle signals with good RV signals. Good ventricular signals along with it. At times, current of injury was also obtained in the His bundle signal. However, we were not able to get good capture thresholds at any site. Multiple attempts were made for over an hour, and despite getting excellent His bundle signals, either there was an issue with stability of the lead or with high thresholds or rising thresholds after the sheath was removed. Two different His bundle sheaths were placed and used, but a satisfactory position with good thresholds could not be achieved. Therefore this His bundle implant was abandoned in favor of an LV lead implant. A 9-[place] sheath was placed, and via this a coronary sinus catheter was placed in the CS. A sheath was placed in the coronary sinus and venogram was performed. The venogram showed a very large anterolateral vein as well as a lateral vein that coursed posteriorly. This particular lateral vein had a very tight U-shaped bend close to its connection with the main coronary sinus body. First the anterolateral vein was targeted quite easily. However, there was diaphragmatic stimulation noted virtually along the entire vein. A Medtronic screw-in LV lead was placed, but this vein was then abandoned on account of phrenic nerve stimulation. The anterolateral vein was then targeted. This was a difficult vein to access on account of the tortuosity close to the coronary sinus body as well as a very tight U- shaped bend. We were able to access the vein with a subselection, but the Medtronic lead would not pass that tight bend. Therefore, finally a [employer] lead quality technician was used and we were able to cross that tight bend and place it in a very stable position. However, diaphragmatic stimulation was noted at the distal poles, but not in the proximal poles. When poles 3 and 4 were tested, thresholds were 1.2 V at 0.4 milliseconds, pacing impedance of 722 ohms and no diaphragmatic capture. The sheath was then removed. The lead was secured to the underlying pectoralis muscle. All leads were secured. The muscle was oversewn to reduce backbleeding. The pocket was irrigated with antibiotic solution and the old generator was explanted, since it had a bipolar LV port. A new generator was implanted to accommodate the quadripolar LV lead. The new generator implanted was a [employer] quadripolar [employer] model number W4TR02, serial number [id number]. The leads and the generator were then placed in the subfascial pocket. The wound was closed in 3 layers and dressed per protocol. The device was then programmed to DDD mode with simultaneous LV/RV pacing with a standard AV delay. RESULT: Successful biventricular pacemaker implantation with LV lead that was placed in the lateral LV tributary. MMSHWETA / IJN: [id number] /
[2020-06-09 07:14] LABS: Glucose,Whole Blood 138 mg/dL (75-99)
--- NOTE | 2020-06-09 07:19 | XR ---
EXAMINATION TYPE: XR chest 2V DATE OF EXAM: 06/09/2020 COMPARISON: 03/22/2020 HISTORY: Shortness of breath TECHNIQUE: Frontal and lateral views of the chest are obtained. FINDINGS: Multi lead pacer device is noted with leads within the right ventricle and right atrium. Scattered senescent parenchymal changes noted. Hyperinflation compatible with COPD. Persistent increased density right medial lung base. Correlate for underlying infiltrate. Appropriate follow-up advised. Heart size is stable. Mediastinal structures are stable and grossly unremarkable. No evidence for hilar prominence. Degenerative changes dorsal spine. IMPRESSION: 1. Persistent increased density right medial lung base. Correlate for underlying infiltrate. Appropri ate follow-up advised.
[2020-06-09 08:07] VITALS: BP 142/81; PULSE 70; RESP 16; TEMP 98.7
--- NOTE | 2020-06-09 08:10 | P.DS ---
Providers Attending physician: Onur Ybarra Primary care physician: [facility] Course: Patient is doing well. No chest discomfort no dizziness lightheadedness Tenderness in the left pectoral area no hematoma no swelling Sitting comfortably in bed Afebrile blood pressure 132/72 mmHg Heart rate in the 70s, normal heart sounds No lower extremity edema Breath sounds are clear no rhonchi no crackles Impression Symptomatically complete heart block This was related to the His bundle lead in the RV lead is a visible Atrial lead Lead revision, RV Implantation of a new LV lead and new generator Chest x-ray is within normal limits IV antibiotics completed Medical home after pacemaker interrogation Follow-up in the office 5 days Minimize alcohol consumption Strict instructions regarding left arm movements given Plan - Discharge Summary Discharge Rx Participant: No New Discharge Prescriptions: No Action RX: amLODIPine [Norvasc] 10 mg PO W/SUPPER RX: Pioglitazone [Actos] 30 mg PO DAILY RX: metFORMIN HCL ER [Glucophage Xr] 500 mg PO TID-W/MEALS RX: ALPRAZolam [Xanax] 0.5 mg PO HS PRN PRN Reason: sleep RX: Dulaglutide [Trulicity] 0.75 mg SQ DIEHL@2100 Rosuvastatin Calcium [Crestor] 10 mg PO W/LUNCH Hydrochlorothiazide [Hydrodiuril] 25 mg PO W/LUNCH Enalapril Maleate [Vasotec] 20 mg PO BID Magnesium Oxide [Mag-Ox] 250 mg PO DAILY PRN PRN Reason: leg cramps Discharge Medication List RX: ALPRAZolam [Xanax] 0.5 mg PO HS PRN 03/21/20 [History] RX: Dulaglutide [Trulicity] 0.75 mg SQ DIEHL@2100 03/21/20 [History] RX: Pioglitazone [Actos] 30 mg PO DAILY 03/21/20 [History] RX: amLODIPine [Norvasc] 10 mg PO W/SUPPER 03/21/20 [History] RX: metFORMIN HCL ER [Glucophage Xr] 500 mg PO TID-W/MEALS 03/21/20 [History] Enalapril Maleate [Vasotec] 20 mg PO BID 06/05/20 [History] Hydrochlorothiazide [Hydrodiuril] 25 mg PO W/LUNCH 06/05/20 [History] Magnesium Oxide [Mag-Ox] 250 mg PO DAILY PRN 06/05/20 [History] Rosuvastatin Calcium [Crestor] 10 mg PO W/LUNCH 06/05/20 [History] Activity/Diet/Wound Care/Special Instructions: Hold Metformin x48 hours
[2020-06-09] MEDS: lisinopriL 20 MG TAB PO SCH (08:39)
[2020-06-09] MEDS ORDERED: PIOGLITAZONE 30 MG TAB PO SCH (09:00)
--- NOTE | 2020-06-09 10:33 | ECHOF ---
Referral Reason:LV function MEASUREMENTS -------- HEIGHT: 180.3 cm WEIGHT: 103.0 kg BP: RVIDd: 3.1 cm (< 3.3) IVSd: 1.3 cm (0.6 - 1.1) LVIDd: 4.6 cm (3.9 - 5.3) LVPWd: 1.4 cm (0.6 - 1.1) IVSs: 1.7 cm LVIDs: 2.3 cm LVPWs: 1.7 cm Ao Diam: 2.8 cm (2.0 - 3.7) AV Cusp: 2.0 cm (1.5 - 2.6) LA Diam: 3.9 cm (2.7 - 3.8) MV EXCURSION: 12.108 mm (> 18.000) MV EF SLOPE: 72 mm/s (70 - 150) EPSS: 0.7 cm MV E Se: 0.54 m/s MV DecT: 226 ms MV A Se: 0.65 m/s MV E/A Ratio: 0.83 RAP: 5.00 mmHg RVSP: 13.06 mmHg FINDINGS -------- Sinus rhythm. Pacerwire seen in RV and RA. This was a technically difficult study with suboptimal views. The left ventricular size is normal. There is mild concentric left ventricular hypertrophy. Overa ll left ventricular systolic function is low-normal with, an EF between 50 - 55 %. The right ventricle is normal in size. The left atrial size is normal. The right atrial size is normal. 5.0mg of Lumason was utilized for enhancement of images The aortic valve is trileaflet, and appears structurally normal. No aortic stenosis or regurgitation. The mitral valve is normal. There is trace mitral regurgitation. The tricuspid valve appears structurally normal. Trace tricuspid regurgitation present. Right marjorie tricular systolic pressure is normal at < 35 mmHg. There is no pulmonic regurgitation present. The aortic root size is normal. IVC Not well visulized. There is no pericardial effusion. CONCLUSIONS -------- 1. Pacerwire seen in RV and RA. 2. This was a technically difficult study with suboptimal views. 3. There is mild concentric left ventricular hypertrophy. 4. Overall left ventricular systolic function is low-normal with, an EF between 50 - 55 %. 5. The left atrial size is normal. 6. 5.0mg of Lumason was utilized for enhancement of images 7. The aortic valve is trileaflet, and appears structurally normal. No aortic stenosis or regurgitati on. 8. There is trace mitral regurgitation. 9. Trace tricuspid regurgitation present. 10. There is no pulmonic regurgitation present. 11. There is no pericardial effusion. CENTRAL SERVICE TECH: Tamela Wylie RDCS
[2020-06-09] MEDS ORDERED: ATORVASTATIN 20 MG TAB PO SCH (12:30)
[2020-06-09] MEDS ORDERED: hydroCHLOROthiazide 25 MG TAB PO SCH (12:30)
[2020-06-10] MEDS ORDERED: metFORMIN 500 MG TAB PO SCH (17:30)
[2020-06-11] MEDS ORDERED: DULAGLUTIDE 0.75 MG SQ SCH (21:00)
== END 2020-06-09 12:06 | disposition home or self-care (01) ==
LOC: CATHEP 07:55 → 1SOBS 17:07 → CATHEP 06-09 12:06
PROVIDERS: ATTEND Internal Medicine Clinical Cardiac Electrophysiology
DX: I44.2 Atrioventricular block, complete (principal); R00.1 Bradycardia, unspecified; I70.8 Atherosclerosis of other arteries; T82.120A Displacement of cardiac electrode, initial encounter
CPT/HCPCS: 93306; 36005; 33225; 33207; 33215; 75820; 76000; 93281; 80048; 71046; C1769 ×4; C1892; C1730; C1898; C1900; J2250; J0690 ×2; J2001; J3010; J1170; J2704; Q9950; Q9967; 33234

== ENCOUNTER 2020-09-20 14:31 | Observation (INO) | payer MEDICAID ==
[2020-09-20] MEDS ORDERED: SODIUM CHLORIDE 0.9% 500 ML 500 ML IV STA (14:54)
[2020-09-20] MEDS ORDERED: MORPHINE SULFATE 4 MG/ML SYRINGE IV STA (14:55)
[2020-09-20 15:34] LABS: Appearance,Urine Clear (Clear); Bilirubin,Urine Negative (Negative); Blood,Urine Negative (Negative); Color,Urine Light Yellow; Glucose,Urine (UA) 2+ (Negative); Ketones,Urine Negative (Negative); Leukocyte Esterase,Urine Negative (Negative); Nitrite,Urine Negative (Negative); PH, Urine 6.5 (5.0-8.0); Protein,Urine Negative (Negative); Specific Gravity,Urine 1.013 (1.001-1.035); Urobilinogen,Urine <2.0 mg/dL (<2.0)
[2020-09-20 15:35] LABS: Basophils # (A) 0.1 k/uL (0-0.2); Basophils % (A) 1 %; Eosinophils # (A) 0.2 k/uL (0-0.7); Eosinophils % (A) 3 %; HCT 40.3 % (39.0-53.0); HGB 13.7 gm/dL (13.0-17.5); Lymphocytes # (A) 0.9 k/uL (1.0-4.8); Lymphocytes % (A) 13 %; MCH 30.7 pg (25.0-35.0); MCHC 34.1 g/dL (31.0-37.0); Mean Platelet Volume 7.6; Monocytes # (A) 0.5 k/uL (0-1.0); Monocytes % (A) 7 %; Neutrophils # (A) 5.1 k/uL (1.3-7.7); Neutrophils % (A) 76 %; Platelet Count 200 k/uL (150-450); RBC 4.48 m/uL (4.30-5.90); RDW 13.1 % (11.5-15.5); WBC 6.7 k/uL (3.8-10.6)
[2020-09-20 15:43] LABS: ALT 17 U/L (4-49); AST 27 U/L (17-59); African American GFR (CKD) >90 (>60 ml/min/1.73 sqM); Albumin 4.2 g/dL (3.5-5.0); Alkaline Phosphatase 60 U/L (38-126); Anion Gap 8 mmol/L; Blood Urea Nitrogen 18 mg/dL (9-20); Calcium 9.6 mg/dL (8.4-10.2); Carbon Dioxide 28 mmol/L (22-30); Chloride 97 mmol/L (98-107); Glucose 167 mg/dL (74-99); Lipase 64 U/L (23-300); Non-African American GFR(CKD) >90 (>60 ml/min/1.73 sqM); Potassium 4.3 mmol/L (3.5-5.1); Sodium 133 mmol/L (137-145); Total Bilirubin 0.6 mg/dL (0.2-1.3); Total Protein 7.1 g/dL (6.3-8.2)
--- NOTE | 2020-09-20 16:35 | CT ---
EXAMINATION TYPE: CT abdomen pelvis w con DATE OF EXAM: 09/20/2020 COMPARISON: None. HISTORY: Left sided pain with nausea. CT DLP: 1497.1 mGycm, Automated Exposure Control for Dose Reduction was Utilized. CONTRAST: CT scan of the abdomen and pelvis is performed without oral and with IV Contrast, patient injected wi th 100 mL of Isovue 300. FINDINGS: LUNG BASES: Mild to moderate posterior bibasilar linear scarring and/or atelectasis. Partial visualiz ation of pacemaker leads. LIVER/GB: No significant abnormality is appreciated. PANCREAS: No significant abnormality is seen. SPLEEN: No significant abnormality is seen. ADRENALS: No significant abnormality is seen. KIDNEYS: Symmetric cortical medullary uptake and excretion without concerning solid or cystic renal m ass or hydronephrosis noted bilaterally. BOWEL: Suboptimal evaluation without enteric contrast. Stomach poorly distended and suboptimally eval uated. No suspicious small or large bowel dilatation. PROSTATE/SEMINAL VESICLES: Enlarged prostate gland consistent with BPH bulging on bladder base. LYMPH NODES: No greater than 1cm abdominal or pelvic lymph nodes are appreciated. OSSEOUS STRUCTURES: Prominent right lateral spur L3-L4 level. Straightening of lumbar spine. Mild-to- moderate multilevel disc space narrowing. [id number] axial joint space loss both hips. OTHER: Mild fat stranding anterior left mid abdominal peritoneal cavity for reference coronal image 2 3 and sagittal image 82. Hernia defect. IMPRESSION: Small focus of ill-defined fluid and fat stranding anterior left mid abdomen intraperiton eal cavity, possible mesenteric panniculitis. Otherwise unremarkable study.
[2020-09-20] MEDS ORDERED: PIPERACILLIN-TAZOBACTAM 3.375 GM in SODIUM CHLORIDE 0.9% 100 ML IVPB STA (16:54)
[2020-09-20] MEDS ORDERED: HYDROmorphone 1 MG/ML 1 ML SYRINGE IVP STA (17:08)
[2020-09-20] MEDS ORDERED: ACETAMINOPHEN TAB 325 MG TAB PO STA (18:24)
[2020-09-20] MEDS ORDERED: NALOXONE 0.4 MG/ML 1 ML VIAL IV PRN (18:37)
[2020-09-20] MEDS ORDERED: HYDROmorphone 0.5 MG/0.5 ML SYRINGE IVP PRN (18:37)
--- NOTE | 2020-09-20 18:39 | ED ---
General Adult HPI - General Chief complaint: Abdominal Pain Stated complaint: abd pain-sent by PCP Time Seen by Provider: 09/20/20 14:44 Source: patient, RN notes reviewed, old records reviewed Mode of arrival: ambulatory Limitations: no limitations - History of Present Illness Initial comments: 64-year-old male patient to ED for evaluation of abdominal pain. Patient reports he has had periumbilical abdominal pain for the last week. Reports that it is constant. Denies any other acute complaints. Patient does have history of hernia per the child. Has not had any recent abdominal surgeries. Patient does have a pacemaker. Systemic: Pt denies fatigue, fever/chills, rash. Pt denies weakness, night sweats, weight loss. Neuro: Pt denies headache, visual disturbances, syncope or pre-syncope. HEENT: Pt denies ocular discharge or irritation, otalgia, rhinorrhea, pharyngitis or notable lymphadenopathy. Cardiopulmonary: Pt denies chest pain, SOB, heart palpitations, dyspnea on exertion. Abdominal/GI: Pt denies n/v/d. : Pt denies dysuria, burning w/ urination, frequency/urgency. Denies new onset urinary or bowel incontinence. MSK: Pt denies myalgia, loss of strength or function in extremities. Neuro: Pt denies new onset weakness, paresthesias. - Related Data Home Medications Medication Instructions Recorded Confirmed ALPRAZolam [Xanax] 0.5 mg PO HS 03/21/20 09/20/20 Dulaglutide [Trulicity] 0.75 mg SQ DIHEL@2100 03/21/20 09/20/20 Pioglitazone [Actos] 30 mg PO DAILY 03/21/20 09/20/20 amLODIPine [Norvasc] 10 mg PO W/SUPPER 03/21/20 09/20/20 metFORMIN HCL ER [Glucophage Xr] 500 mg PO TID-W/MEALS 03/21/20 09/20/20 Enalapril Maleate [Vasotec] 20 mg PO BID 06/05/20 09/20/20 Magnesium Oxide [Mag-Ox] 250 mg PO DAILY PRN 06/05/20 09/20/20 Rosuvastatin Calcium [Crestor] 10 mg PO W/LUNCH 06/05/20 09/20/20 hydroCHLOROthiazide [Hydrodiuril] 25 mg PO W/LUNCH 06/05/20 09/20/20 Aspirin EC [Ecotrin Low Dose] 81 mg PO W/LUNCH 09/20/20 09/20/20 Allergies Allergy/AdvReac Type Severity Reaction Status Date / Time Sulfa (Sulfonamide Allergy Rash/Hives Verified 09/20/20 16:59 Antibiotics) Review of Systems ROS Statement: Those systems with pertinent positive or pertinent negative responses have been documented in the HPI. ROS Other: All systems not noted in ROS Statement are negative. Past Medical History Past Medical History: Diabetes Mellitus, Hypertension Additional Past Medical History / Comment(s): see Dr Jarrett H&P, no cpap used, constipation/loose stool, bone spurs rt shoulder, "fluid in ear" History of Any Multi-Drug Resistant Organisms: None Reported Past Surgical History: Adenoidectomy, Hernia Repair, Tonsillectomy Additional Past Surgical History / Comment(s): umbilical hernia as infant, kate inguinal hernia Past Anesthesia/Blood Transfusion Reactions: No Reported Reaction Type of Cardiac Device: Permanent Pacemaker Device Placement Date:: 03/2020 Past Psychological History: No Psychological Hx Reported Smoking Status: Never smoker Past Alcohol Use History: Occasional Past Drug Use History: None Reported - Past Family History Father Family Medical History: Deep Vein Thrombosis (DVT) Mother Family Medical History: AICD/Pacemaker Additional Family Medical History / Comment(s): myloplastic syndrome Brother(s) Family Medical History: AICD/Pacemaker General Exam - General Exam Comments Initial Comments: Constitutional: NAD, AOX3, Pt has pleasant affect. HEENT: NC/AT, trachea midline, neck supple, no lymphadenopathy. External ears appear normal, without discharge. Mucous membranes moist. Eyes PERRLA, EOM intact. There is no scleral icterus. No pallor noted. Cardiopulmonary: RRR, no murmurs, rubs or gallops, no JVD noted. Lungs CTAB in anterior and posterior pereira. No peripheral edema. Abdominal exam: Abdomen soft and non-distended. Abdomen tender to palpation in periumbilical region. Bowel sounds active in LLQ. No hepatosplenomegaly. No ecchymosis Neuro: CN II-XII grossly intact. No nuchal rigidity. MSK: Full active ROM in upper and lower extremities, 5/5 stregnth. Limitations: no limitations Course Vital Signs 09/20/20 14:41 Temperature 98.0 F Pulse Rate 75 Respiratory 16 Rate Blood Pressure 168/78 O2 Sat by Pulse 99 Oximetry Medical Decision Making - Medical Decision Making 64-year-old male patient to ED for evaluation of abdominal pain. Patient reports he has had periumbilical abdominal pain for the last week. Reports that it is constant. Denies any other acute complaints. Patient does have history of hernia per the child. Has not had any recent abdominal surgeries. Patient does have a pacemaker. Pt VSS, afebrile. Physical exam displayed mild periumbil lucy tenderness. Laboratory investigations non-impressive. EKG displayed paced rhythm. PT displayed small focus of ill-defined fluid and fat stranding left midabdomen intraperitoneal cavity possible mesenteric panniculitis. Patient initiated on Zosyn will be admitted with surgical consultation. Case discussed with Dr. Dior. - Lab Data Result diagrams: 09/20/20 15:14 09/20/20 15:14 Lab Results 09/20/20 09/20/20 09/20/20 Range/Units 15:14 15:14 15:14 WBC 6.7 (3.8-10.6) k/uL RBC 4.48 (4.30-5.90) m/uL Hgb 13.7 (13.0-17.5) gm/dL Hct 40.3 (39.0-53.0) % MCV 90.0 (80.0-100.0) fL MCH 30.7 (25.0-35.0) pg MCHC 34.1 (31.0-37.0) g/dL RDW 13.1 (11.5-15.5) % Plt Count 200 (150-450) k/uL Neutrophils % 76 % Lymphocytes % 13 % Monocytes % 7 % Eosinophils % 3 % Basophils % 1 % Neutrophils # 5.1 (1.3-7.7) k/uL Lymphocytes # 0.9 L (1.0-4.8) k/uL Monocytes # 0.5 (0-1.0) k/uL Eosinophils # 0.2 (0-0.7) k/uL Basophils # 0.1 (0-0.2) k/uL Sodium 133 L (137-145) mmol/L Potassium 4.3 (3.5-5.1) mmol/L Chloride 97 L (98-107) mmol/L Carbon Dioxide 28 (22-30) mmol/L Anion Gap 8 mmol/L BUN 18 (9-20) mg/dL Creatinine 0.73 (0.66-1.25) mg/dL Est GFR (CKD-EPI)AfAm >90 (>60 ml/min/1.73 sqM) Est GFR (CKD-EPI)NonAf >90 (>60 ml/min/1.73 sqM) Glucose 167 H (74-99) mg/dL Plasma Lactic Acid Christophe (0.7-2.0) mmol/L Calcium 9.6 (8.4-10.2) mg/dL Total Bilirubin 0.6 (0.2-1.3) mg/dL AST 27 (17-59) U/L ALT 17 (4-49) U/L Alkaline Phosphatase 60 (38-126) U/L Troponin I (0.000-0.034) ng/mL Total Protein 7.1 (6.3-8.2) g/dL Albumin 4.2 (3.5-5.0) g/dL Lipase 64 (23-300) U/L Urine Color Light Yellow Urine Appearance Clear (Clear) Urine pH 6.5 (5.0-8.0) Ur Specific [place] 1.013 (1.001-1.035) Urine Protein Negative (Negative) Urine Glucose (UA) 2+ H (Negative) Urine Ketones Negative (Negative) Urine Blood Negative (Negative) Urine Nitrite Negative (Negative) Urine Bilirubin Negative (Negative) Urine Urobilinogen <2.0 (<2.0) mg/dL Ur Leukocyte Esterase Negative (Negative) 09/20/20 09/20/20 Range/Units 15:14 17:54 WBC (3.8-10.6) k/uL RBC (4.30-5.90) m/uL Hgb (13.0-17.5) gm/dL Hct (39.0-53.0) % MCV (80.0-100.0) fL MCH (25.0-35.0) pg MCHC (31.0-37.0) g/dL RDW (11.5-15.5) % Plt Count (150-450) k/uL Neutrophils % % Lymphocytes % % Monocytes % % Eosinophils % % Basophils % % Neutrophils # (1.3-7.7) k/uL Lymphocytes # (1.0-4.8) k/uL Monocytes # (0-1.0) k/uL Eosinophils # (0-0.7) k/uL Basophils # (0-0.2) k/uL Sodium (137-145) mmol/L Potassium (3.5-5.1) mmol/L Chloride (98-107) mmol/L Carbon Dioxide (22-30) mmol/L Anion Gap mmol/L BUN (9-20) mg/dL Creatinine (0.66-1.25) mg/dL Est GFR (CKD-EPI)AfAm (>60 ml/min/1.73 sqM) Est GFR (CKD-EPI)NonAf (>60 ml/min/1.73 sqM) Glucose (74-99) mg/dL Plasma Lactic Acid Christophe 1.4 (0.7-2.0) mmol/L Calcium (8.4-10.2) mg/dL Total Bilirubin (0.2-1.3) mg/dL AST (17-59) U/L ALT (4-49) U/L Alkaline Phosphatase (38-126) U/L Troponin I <0.012 (0.000-0.034) ng/mL Total Protein (6.3-8.2) g/dL Albumin (3.5-5.0) g/dL Lipase (23-300) U/L Urine Color Urine Appearance (Clear) Urine pH (5.0-8.0) Ur Specific [place] (1.001-1.035) Urine Protein (Negative) Urine Glucose (UA) (Negative) Urine Ketones (Negative) Urine Blood (Negative) Urine Nitrite (Negative) Urine Bilirubin (Negative) Urine Urobilinogen (<2.0) mg/dL Ur Leukocyte Esterase (Negative) - EKG Data -: EKG Interpreted by Me (and Dr. Dior ) EKG Comments: Ventricular rate 93, GA to 138, QRS 158, QT/QTc 450/495. Paced rhythm. No concern for acute ischemia. Disposition Clinical Impression: Abdominal pain Disposition: ADMITTED IP TO THIS HOSP Condition: Serious Is patient prescribed a controlled substance at d/c from ED?: No Referrals: Link Gerard DO [Primary Care Provider] - 1-2 days
[2020-09-20] MEDS: ACETAMINOPHEN TAB 325 MG TAB PO PRN (19:40)
[2020-09-20] MEDS: SODIUM CHLORIDE 0.9% 1,000 ML IV SCH (20:05)
[2020-09-20] MEDS ORDERED: MAGNESIUM OXIDE 400 MG TAB PO PRN (20:16)
[2020-09-20 21:05] LABS: Glucose,Whole Blood 234 mg/dL (75-99)
[2020-09-20] MEDS: ALPRAZolam 0.5 MG TAB PO SCH (22:07)
[2020-09-20] MEDS: INSULIN ASPART (NovoLOG) 100 UNIT/ML VIAL SQ SCH (22:07)
[2020-09-20] MEDS: lisinopriL 20 MG TAB PO SCH (22:07)
[2020-09-20] MEDS: amLODIPine 10 MG TAB PO SCH (22:21)
--- NOTE | 2020-09-20 23:26 | HP ---
HISTORY AND PHYSICAL A 64-year-old white male came in with periumbilical abdominal pain, contact with history of hernia his abdomen somewhere, but he has not had any recent abdominal surgeries. He does have a pacemaker. He came with severe pain, diffuse across his abdomen. 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 Started on IV antibiotics per surgeon and pain control. She will see him in the morning. REVIEW OF SYSTEMS: Otherwise, 14-point review of systems negative. HOME MEDICINES: 1. Xanax 0.5 at bedtime. 2. Trulicity 0.75 once a week. 3. Actos 30 mg daily. 4. Norvasc 10 mg daily. 5. Glucophage XR 500 t.i.d. 6. Vasotec 20 b.i.d. 7. Mag oxide 250 daily. 8. Crestor 10 mg daily. 9. HydroDIURIL 25 daily. 10.Aspirin 81 mg daily. ALLERGIES: Allergies are to SULFA. PAST MEDICAL HISTORY: History of diabetes mellitus, hypertension, obesity, history of constipation, loose stools, bone spurs right shoulder, fluid in his ear, adenoidectomy, hernia repair, tonsillectomy, permanent pacemaker. FAMILY HISTORY: Father DVT. Mother with pacemaker, syndrome. Brother, AICD pacemaker. PHYSICAL EXAMINATION: VITAL SIGNS: Temperature 98, pulse 75, blood pressure 160s over 70s, respiratory rate 16 to 18, O2 99. CARDIOVASCULAR: S1, S2. LUNGS: Clear. GI: Diffuse tenderness. Possible hernias throughout his abdomen with some bulging. No guarding. No rebound. MUSCULOSKELETAL: Range of motion full x4. PSYCH: Fair mood and affect. Awake, given appropriate answers. EYES: Pupils equal, round, reactive. Looks stated age. ASSESSMENT: 1. Started on Zosyn for intraperitoneal cavity, mesenteric panniculitis, with acute abdominal pain. 2. Diabetes mellitus. 3. Hypertension. 4. History of pacemaker. Continue with antibiotics, pain control. Surgical consult to see in the morning. MMODL / IJN: [id number] /
[2020-09-21] MEDS: PIPERACILLIN-TAZOBACTAM 3.375 GM in SODIUM CHLORIDE 0.9% 100 ML IVPB SCH ×3 (00:26→16:43)
[2020-09-21 06:20] LABS: Glucose,Whole Blood 144 mg/dL (75-99)
[2020-09-21] MEDS: ASPIRIN 81 MG PO SCH (07:32)
[2020-09-21] MEDS: PIOGLITAZONE 30 MG TAB PO SCH (07:32)
[2020-09-21] MEDS: metFORMIN 500 MG TAB PO SCH ×3 (07:32→16:43)
[2020-09-21] MEDS: lisinopriL 20 MG TAB PO SCH ×2 (07:32→21:47)
[2020-09-21] MEDS: SODIUM CHLORIDE 0.9% 1,000 ML IV SCH (07:33)
[2020-09-21] MEDS: INSULIN ASPART (NovoLOG) 100 UNIT/ML VIAL SQ SCH ×4 (07:33→21:47)
[2020-09-21] MEDS: ACETAMINOPHEN TAB 325 MG TAB PO PRN ×2 (09:42→19:47)
--- NOTE | 2020-09-21 11:21 | P.GSCN ---
<Dyan Ramos - Last Filed: 09/21/20 13:58> History of Present Illness Consult date: 09/21/20 History of present illness: CHIEF COMPLAINT: Abdominal pain HISTORY OF PRESENT ILLNESS: This is a 64-year-old male with a known history of diabetes, hypertension, umbilical hernia as it with repair, inguinal hernias during childhood with repair and pacemaker placement over 12 weeks ago. Patient presents to the emergency room with abdominal pain right above the umbilicus that started about a week ago. Patient reports feeling of firmness to that area. He denies any discoloration. He denies any fever chills or sweats. He denies any nausea or vomiting. Denies any change in bowel habits. Patient started on IV antibiotics in the emergency room. Patient reporting improvement in his abdominal discomfort and mild swelling. PAST MEDICAL HISTORY: See list. PAST SURGICAL HISTORY: See list. MEDICATIONS: See list. ALLERGIES: See list. SOCIAL HISTORY: No illicit drug use. REVIEW OF SYSTEMS: CONSTITUTIONAL: Denies fever or chills. HEENT: Denies blurred vision, vision changes, or eye pain. Denies hemoptysis ENDOCRINE: Denies heat or cold intolerance. CARDIOVASCULAR: Denies chest pain or pressure. RESPIRATORY: No shortness of breath. GASTROINTESTINAL: Denies abdominal pain. Denies nausea or vomiting. NEURO: Denies history of seizures. PSYCH: No depression or suicidal ideation HEMATOLOGIC: Denies bleeding disorders. LYMPHATIC: The patient denies any lumps and bumps around the neck. GENITOURINARY: Denies any blood in urine or increased urinary frequency. MUSCULOSKELETAL: Denies myalgias. Denies joint swelling. Denies decreased range of motion beyond patients baseline. SKIN: Denies pruitis. Denies rash. PHYSICAL EXAM: VITAL SIGNS: Reviewed GENERAL: Well-developed in no acute distress. HEENT: No sclera icterus. Extraocular movements grossly intact. Moist buccal mucosa. Head is atraumatic, normocephalic. Hears conversational speech. No nasal drain age. NECK: Supple without lymphadenopathy. CHEST: Non-labored respirations and equal bilateral excursions. CARDIOVASCULAR: Palpable 2+ radial pulses. ABDOMEN: Soft. Nondistended. Healed scar above the umbilicus. Tenderness with palpation above the umbilicus. No erythema noted. No swelling MUSCULOSKELETAL: No clubbing or cyanosis. NEUROLOGIC: No focal or lateralizing signs. Cranial nerves II through XII grossly intact. PSYCH: Appropriate affect. Alert and oriented to person, place and time. SKIN: Well perfused. Good skin turgor. LABORATORY DATA: WBC 6.7 LFTs normal lipase normal IMAGING: Computed tomography scan abdomen and pelvis showing small focus of ill defined fluid and fat stranding anterior left mid abdomen intraperitoneal cavity, possible mesenteric panniculitis. ASSESSMENT: 1. 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 History of umbilical hernia with repair during infancy 3. History of inguinal hernia repair during childhood 4. Diabetes mellitus type 2 5. Essential hypertension PLAN: -Continue with IV antibiotics -Continue with IV fluids -Continue carb consistent diet -Toradol 15 mg IV every 6 for pain -No surgical intervention needed Thank you for this consultation Physician Career Education Teacher note has been reviewed by physician. Signing provider agrees with the documented findings, assessment, and plan of care. Past Medical History Past Medical History: Diabetes Mellitus, Hypertension Additional Past Medical History / Comment(s): see Dr Jarrett H&P, no cpap used, constipation/loose stool, bone spurs rt shoulder, "fluid in ear" History of Any Multi-Drug Resistant Organisms: None Reported Past Surgical History: Adenoidectomy, Hernia Repair, Pacemaker, Tonsillectomy Additional Past Surgical History / Comment(s): umbilical hernia as infant, kate inguinal hernia Past Anesthesia/Blood Transfusion Reactions: No Reported Reaction Type of Cardiac Device: Permanent Pacemaker Device Placement Date:: 05/10/2020 Past Psychological History: No Psychological Hx Reported, Anxiety Smoking Status: Never smoker Past Alcohol Use History: Occasional Past Drug Use History: None Reported - Past Family History Father Family Medical History: AICD/Pacemaker, Deep Vein Thrombosis (DVT) Mother Family Medical History: AICD/Pacemaker Additional Family Medical History / Comment(s): myloplastic syndrome Brother(s) Family Medical History: AICD/Pacemaker Medications and Allergies Home Medications Medication Instructions Recorded Confirmed Type ALPRAZolam [Xanax] 0.5 mg PO HS 03/21/20 09/20/20 History Dulaglutide [Trulicity] 0.75 mg SQ DIEHL@2100 03/21/20 09/20/20 History Pioglitazone [Actos] 30 mg PO DAILY 03/21/20 09/20/20 History amLODIPine [Norvasc] 10 mg PO W/SUPPER 03/21/20 09/20/20 History metFORMIN HCL ER [Glucophage Xr] 500 mg PO TID-W/MEALS 03/21/20 09/20/20 History Enalapril Maleate [Vasotec] 20 mg PO BID 06/05/20 09/20/20 History Magnesium Oxide [Mag-Ox] 250 mg PO DAILY PRN 06/05/20 09/20/20 History Rosuvastatin Calcium [Crestor] 10 mg PO W/LUNCH 06/05/20 09/20/20 History hydroCHLOROthiazide [Hydrodiuril] 25 mg PO W/LUNCH 06/05/20 09/20/20 History Aspirin EC [Ecotrin Low Dose] 81 mg PO W/LUNCH 09/20/20 09/20/20 History Amoxicillin/Potassium Clav 1 tab PO Q12HR 5 Days #10 tab 09/22/20 Rx [Augmentin 875-125 Tablet] Allergies Allergy/AdvReac Type Severity Reaction Status Date / Time Sulfa (Sulfonamide Allergy Rash/Hives Verified 09/20/20 16:59 Antibiotics) Surgical - Exam Vital Signs Temp Pulse Resp BP Pulse Ox 98.0 F 75 16 168/78 99 09/20/20 14:41 09/20/20 14:41 09/20/20 14:41 09/20/20 14:41 09/20/20 14:41 Results - Labs 09/20/20 15:14 09/20/20 15:14 Abnormal Lab Results - Last 24 Hours (Table) 09/20/20 09/20/20 09/20/20 Range/Units 15:14 15:14 15:14 Lymphocytes # 0.9 L (1.0-4.8) k/uL Sodium 133 L (137-145) mmol/L Chloride 97 L (98-107) mmol/L Glucose 167 H (74-99) mg/dL POC Glucose (mg/dL) (75-99) mg/dL Urine Glucose (UA) 2+ H (Negative) 09/20/20 09/21/20 Range/Units 21:04 06:17 Lymphocytes # (1.0-4.8) k/uL Sodium (137-145) mmol/L Chloride (98-107) mmol/L Glucose (74-99) mg/dL POC Glucose (mg/dL) 234 H 144 H (75-99) mg/dL Urine Glucose (UA) (Negative) Diabetes panel 09/20/20 Range/Units 15:14 Sodium 133 L (137-145) mmol/L Potassium 4.3 (3.5-5.1) mmol/L Chloride 97 L (98-107) mmol/L Carbon Dioxide 28 (22-30) mmol/L BUN 18 (9-20) mg/dL Creatinine 0.73 (0.66-1.25) mg/dL Glucose 167 H (74-99) mg/dL Calcium 9.6 (8.4-10.2) mg/dL AST 27 (17-59) U/L ALT 17 (4-49) U/L Alkaline Phosphatase 60 (38-126) U/L Total Protein 7.1 (6.3-8.2) g/dL Albumin 4.2 (3.5-5.0) g/dL Calcium panel 09/20/20 Range/Units 15:14 Calcium 9.6 (8.4-10.2) mg/dL Albumin 4.2 (3.5-5.0) g/dL Pituitary panel 09/20/20 Range/Units 15:14 Sodium 133 L (137-145) mmol/L Potassium 4.3 (3.5-5.1) mmol/L Chloride 97 L (98-107) mmol/L Carbon Dioxide 28 (22-30) mmol/L BUN 18 (9-20) mg/dL Creatinine 0.73 (0.66-1.25) mg/dL Glucose 167 H (74-99) mg/dL Calcium 9.6 (8.4-10.2) mg/dL Adrenal panel 09/20/20 Range/Units 15:14 Sodium 133 L (137-145) mmol/L Potassium 4.3 (3.5-5.1) mmol/L Chloride 97 L (98-107) mmol/L Carbon Dioxide 28 (22-30) mmol/L BUN 18 (9-20) mg/dL Creatinine 0.73 (0.66-1.25) mg/dL Glucose 167 H (74-99) mg/dL Calcium 9.6 (8.4-10.2) mg/dL Total Bilirubin 0.6 (0.2-1.3) mg/dL AST 27 (17-59) U/L ALT 17 (4-49) U/L Alkaline Phosphatase 60 (38-126) U/L Total Protein 7.1 (6.3-8.2) g/dL Albumin 4.2 (3.5-5.0) g/dL <Vira Delgadillo N - Last Filed: 09/22/20 22:49> History of Present Illness History of present illness: Patient seen and evaluated with above. Please see additional documentation. HISTORY OF PRESENT ILLNESS: The patient is a 64 year old male who reports acute onset of 10/10 periumbilical pain. He has past history of umbilical hernia surgery. He reports having a pacemaker electrode replaced and had been lifting restrictions for over 3 months. After his restrictions were limited, he reports moderate activity. He presented to the emergency room for concern for abdominal wall hernia. Since start of his antibiotic regimen, he reports improvement of his symptoms. PAST MEDICAL HISTORY: See list and reviewed PAST SURGICAL HISTORY: See list and reviewed MEDICATIONS: See list and reviewed ALLERGIES: See list and reviewed SOCIAL HISTORY: See list and reviewed FAMILY HISTORY: See list and reviewed REVIEW OF ORGAN SYSTEMS: CONSTITUTIONAL: No fevers or chills. No recent weight loss. EYES: Denies any trouble with vision. No glasses. HEENT: No difficulties with hearing. No nosebleeds. No difficulty swallowing. RESPIRATORY: Denies pneumonia. Denies any troubles with breathing or dyspnea on exertion. CARDIOVASCULAR: Has pacemaker. Has hypertension. GASTROINTESTINAL: Denies fatty food intolerance. Denies change in bowel habits and gas bloat. GENITOURINARY: Denies any blood in urine or increased urinary frequency. NEUROLOGICAL: Denies any numbness or tingling along the distal extremities. No seizure disorders or headaches. MUSCULOSKELETAL: Denies any back pain, stiffness or joint arthritis. SKIN: No current skin cancer. No rash. PSYCHIATRIC: Denies current depression or suicidal thoughts. He has anxiety. ENDOCRINE: Has blood sugar glucose intolerance. HEME/LYMPHATIC: Denies any lumps and bumps around the neck. No recent deep venous thrombosis. ALLERGY/IMMUNOLOGY: No immunoglobulin therapy. No immune deficiencies. BREAST: Denies current breast lumps, pain or nipple discharge. PHYSICAL EXAM: VITALS: Reviewed CONSTITUTIONAL: Well developed and in no acute distress. EYES: Conjuctivae without sclera icterus. Pupils are equally round and reactive to light. Extraocular movements grossly intact. HEAD, EARS, NOSE, THROAT: Moist buccal mucosa. Head is atraumatic, normocephalic. Hears conversational speech. No nasal drainage. NECK: Supple. No JV distention RESPIRATORY: Non-labored respirations and equal bilateral excursions. No gross wheezes. CARDIOVASCULAR: Regular rate and rhythm. Extremities without moderate edema. Palpable 2+ radial pulses. ABDOMEN: Soft. No peritonitis. Semicircle incision along the umbilicus. No skin changes. LYMPH: No neck lymphadenopathy. MUSCULOSKELETAL: Gait within normal limits. Nail and fingers with good capillary refill. SKIN: Warm and well perfused with good skin turgor. NEUROLOGIC: Cranial nerves II through XII grossly intact. Sensation upper and extremities intact. No focal or lateralizing signs. PSYCH: Appropriate affect. Alert and oriented to person, place and time. Displays appropriate insight. CLINCAL LABS: Reviewed. WBC 6.7. Hemoglobin 13.7 IMAGING: Independently reviewed CT of the abdomen pelvis demonstrates fat stranding at the periumbilical area of the mesentery consistent with mesenteric panniculitis. No evidence of ventral hernia identified. RADIOLOGY: Report reviewed CT of the abdomen and pelvis confirms no ventral hernia findings of panniculitis of the mesentery. ASSESSMENT: 1. 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 Recommend anti-inflammatory such as Toradol 15 mg scheduled. 2. He reports improvement of his abdominal pain with antibiotics. Continue in the interim. 3. Diet as tolerated Thank you for this kind consultation. Surgical - Exam Vital Signs Temp Pulse Resp BP Pulse Ox 98.0 F 75 16 168/78 99 09/20/20 14:41 09/20/20 14:41 09/20/20 14:41 09/20/20 14:41 09/20/20 14:41 Results - Labs 09/20/20 15:14 09/20/20 15:14 Abnormal Lab Results - Last 24 Hours (Table) 09/22/20 09/22/20 Range/Units 06:47 11:13 POC Glucose (mg/dL) 146 H 183 H (75-99) mg/dL Microbiology - Last 24 Hours (Table) 09/20/20 17:54 Blood Culture - Preliminary Blood No Growth after 48 hours Assessment and Plan (1) Mesenteric panniculitis Status: Acute Code(s): K65.4 - SCLEROSING MESENTERITIS SNOMED Code(s): 10 [id number] (2) Periumbilic abdominal tenderness Status: Acute Code(s): R10.815 - PERIUMBILIC ABDOMINAL TENDERNESS SNOMED Code(s): 372543812
[2020-09-21 11:24] LABS: Glucose,Whole Blood 198 mg/dL (75-99)
[2020-09-21] MEDS: hydroCHLOROthiazide 25 MG TAB PO SCH (11:29)
[2020-09-21] MEDS: ATORVASTATIN 20 MG TAB PO SCH (11:29)
[2020-09-21 16:43] LABS: Glucose,Whole Blood 137 mg/dL (75-99)
[2020-09-21] MEDS: KETOROLAC 15 MG/ML 1 ML VIAL IVP SCH (16:43)
[2020-09-21] MEDS: amLODIPine 10 MG TAB PO SCH (16:43)
--- NOTE | 2020-09-21 18:23 | PN ---
PROGRESS NOTE This 64-year-old white male remains in the hospital, seen by Surgery for mesenteric adenitis versus panniculitis. IV antibiotics are helping him. He is on pain control. He is getting better. Abdomen is soft. Mild tenderness in the epigastric area. GI: Normal bowel sounds. CARDIOVASCULAR: S1, S2. Lungs are clear. PSYCH: Fair mood and affect. Discussed with him and his daughter about going home on antibiotics, Trulicity shots in the upper thigh of the leg until abdomen heals. Switch him to oral antibiotics. He will be discharged home in the morning with oral antibiotics and will follow up as an outpatient. MMODL / IJN: [id number] /
[2020-09-21 20:12] LABS: Glucose,Whole Blood 174 mg/dL (75-99)
[2020-09-21] MEDS: ALPRAZolam 0.5 MG TAB PO SCH (21:48)
[2020-09-22] MEDS: KETOROLAC 15 MG/ML 1 ML VIAL IVP SCH ×3 (01:03→12:00)
[2020-09-22] MEDS: PIPERACILLIN-TAZOBACTAM 3.375 GM in SODIUM CHLORIDE 0.9% 100 ML IVPB SCH ×2 (01:03→07:39)
[2020-09-22] MEDS: SODIUM CHLORIDE 0.9% 1,000 ML IV SCH ×2 (05:00→11:53)
[2020-09-22 06:48] LABS: Glucose,Whole Blood 146 mg/dL (75-99)
[2020-09-22] MEDS: metFORMIN 500 MG TAB PO SCH ×2 (07:35→12:01)
[2020-09-22] MEDS: INSULIN ASPART (NovoLOG) 100 UNIT/ML VIAL SQ SCH ×2 (07:35→12:01)
[2020-09-22] MEDS: lisinopriL 20 MG TAB PO SCH (07:35)
[2020-09-22] MEDS: PIOGLITAZONE 30 MG TAB PO SCH (07:36)
[2020-09-22 07:42] VITALS: BP 152/81; PULSE 71; RESP 16; TEMP 97.5
[2020-09-22 11:15] LABS: Glucose,Whole Blood 183 mg/dL (75-99)
[2020-09-22] MEDS: ASPIRIN 81 MG PO SCH (12:01)
[2020-09-22] MEDS: ATORVASTATIN 20 MG TAB PO SCH (12:01)
[2020-09-22] MEDS: hydroCHLOROthiazide 25 MG TAB PO SCH (12:02)
--- NOTE | 2020-09-22 14:24 | P.PN ---
<Dyan Ramos - Last Filed: 09/22/20 14:22> Subjective Progress Note Date: 09/22/20 CHIEF COMPLAINT: Abdominal pain HISTORY OF PRESENT ILLNESS: Patient is being followed and treated for mesenteric panniculitis. His abdominal pain has improved greatly. He is tolerating diet. He's having regular bowel movements. Denies any nausea or vomiting.He is afebrile PHYSICAL EXAM: VITAL SIGNS: Reviewed GENERAL: Well-developed in no acute distress. HEENT: No sclera icterus. Extraocular movements grossly intact. Moist buccal mucosa. Head is atraumatic, normocephalic. Hears conversational speech. No nasal drainage. NECK: Supple without lymphadenopathy. CHEST: Non-labored respirations and equal bilateral excursions. CARDIOVASCULAR: Regular rate with regular rhythm. Palpable 2+ radial pulses. ABDOMEN: Soft. Nondistended. Nontender. MUSCULOSKELETAL: No clubbing or cyanosis. NEUROLOGIC: No focal or lateralizing signs. Cranial nerves II through XII grossly intact. PSYCH: Appropriate affect. Alert and oriented to person, place and time. SKIN: Well perfused. Good skin turgor. ASSESSMENT: 1. Abdominal pain Secondary to mesenteric panniculitis 2. History of umbilical hernia with repair during infancy 3. History of inguinal hernia repair during childhood 4. Diabetes mellitus type 2 5. Essential hypertension PLAN: -Patient is stable for discharge from surgical standpoint -Agree with continuing Augmentin after discharge Physician Rental Sales Associate note has been reviewed by physician. Signing provider agrees with the documented findings, assessment, and plan of care. Objective - Vital Signs Vital signs: Vital Signs Temp 97.5 F L 09/22/20 07:41 Pulse 71 09/22/20 07:41 Resp 16 09/22/20 07:41 BP 152/81 09/22/20 07:41 Pulse Ox 97 09/22/20 07:41 Intake & Output 09/21/20 09/22/20 09/22/20 18:59 06:59 18:59 Intake Total 1730 Balance 1730 Intake: Intake, IV Titration 550 Amount Piperacillin-Tazobactam 3 100 .375 gm In Sodium Chloride 0.9% 100 ml @ 25 mls/hr IVPB Q8HR [facility] Rx# :[id number] Sodium Chloride 0.9% 1, 450 000 ml @ 75 mls/hr IV . [id number] [facility] Rx#:[id number] Oral 1180 Other: Voiding Method Toilet Toilet # Voids 2 1 3 - Labs CBC & Chem 7: 09/20/20 15:14 09/20/20 15:14 Labs: Abnormal Lab Results - Last 24 Hours (Table) 09/21/20 09/21/20 09/22/20 Range/Units 16:41 20:11 06:47 POC Glucose (mg/dL) 137 H 174 H 146 H (75-99) mg/dL 09/22/20 Range/Units 11:13 POC Glucose (mg/dL) 183 H (75-99) mg/dL Microbiology - Last 24 Hours (Table) 09/20/20 17:54 Blood Culture - Preliminary Blood No Growth after 24 hours <Vira Delgadillo - Last Filed: 09/22/20 22:53> Subjective Patient seen and evaluated with above. Please see additional documentation. HISTORY OF PRESENT ILLNESS: The patient is a 64 year old male admitted with abdominal pain due to mesenteric panniculitis. Since admission, abdominal pain has improved. No nausea and vomiting. He is tolerating diet. REVIEW OF ORGAN SYSTEMS: No fevers or chills. No nausea or vomiting. PHYSICAL EXAM: VITALS: Reviewed CONSTITUTIONAL: Well developed and in no acute distress. EYES: Conjuctivae without sclera icterus. Pupils are equally round and reactive to light. Extraocular movements grossly intact. HEAD, EARS, NOSE, THROAT: Moist buccal mucosa. Head is atraumatic, normocephalic. Hears conversational speech. No nasal drainage. RESPIRATORY: Non-labored respirations and equal bilateral excursions. No gross wheezes. CARDIOVASCULAR: Palpable 2+ radial pulses. ABDOMEN: Soft. No peritonitis. Semicircle incision along the umbilicus. No skin changes. MUSCULOSKELETAL: No clubbing, cyanosis, edema SKIN: Warm and well perfused with good skin turgor. NEUROLOGIC: Cranial nerves II through XII grossly intact. Sensation upper and extremities intact. No focal or lateralizing signs. PSYCH: Appropriate affect. Alert and oriented to person, place and time. Displays appropriate insight. CLINCAL LABS: No new labs. ASSESSMENT: 1. 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 Continue with anti-inflammatories upon discharge. 2. May continue with antibiotics upon discharge 3. Diet as tolerated Objective - Vital Signs Vital signs: Vital Signs Temp 97.5 F L 09/22/20 07:41 Pulse 71 09/22/20 07:41 Resp 16 09/22/20 07:41 BP 152/81 09/22/20 07:41 Pulse Ox 97 09/22/20 07:41 Intake & Output 09/22/20 09/22/20 09/23/20 06:59 18:59 06:59 Intake Total 1730 Balance 1730 Intake: Intake, IV Titration 550 Amount Piperacillin-Tazobactam 3 100 .375 gm In Sodium Chloride 0.9% 100 ml @ 25 mls/hr IVPB Q8HR [facility] Rx# :[id number] Sodium Chloride 0.9% 1, 450 000 ml @ 75 mls/hr IV . [id number] [facility] Rx#:[id number] Oral 1180 Other: Voiding Method Toilet # Voids 1 3 - Labs CBC & Chem 7: 09/20/20 15:14 09/20/20 15:14 Labs: Abnormal Lab Results - Last 24 Hours (Table) 09/22/20 09/22/20 Range/Units 06:47 11:13 POC Glucose (mg/dL) 146 H 183 H (75-99) mg/dL Microbiology - Last 24 Hours (Table) 09/20/20 17:54 Blood Culture - Preliminary Blood No Growth after 48 hours Assessment and Plan (1) Mesenteric panniculitis Status: Acute Code(s): K65.4 - SCLEROSING MESENTERITIS SNOMED Code(s): 7923226084274244 (2) Periumbilic abdominal tenderness Status: Acute Code(s): R10.815 - PERIUMBILIC ABDOMINAL TENDERNESS SNOMED Code(s): 946226539 (3) Diabetes type 2, uncontrolled Status: Acute Code(s): E11.65 - TYPE 2 DIABETES MELLITUS WITH HYPERGLYCEMIA SNOMED Code(s): 751929238 (4) Hypertensive heart disease Status: Acute Code(s): I11.9 - HYPERTENSIVE HEART DISEASE WITHOUT HEART FAILURE SNOMED Code(s): 00375606 (5) Pacemaker Status: Acute Code(s): Z95.0 - PRESENCE OF CARDIAC PACEMAKER SNOMED Code(s): 936846997
--- NOTE | 2020-09-22 16:33 | DS ---
DISCHARGE SUMMARY DATE OF SERVICE: 09/22/2020 FINAL DIAGNOSES: 1. Abdominal pain, possibly recent panniculitis. 2. Diabetes mellitus type 2. 3. Hypertension. 4. History of pacemaker. DISCHARGE DISPOSITION: The patient will be discharged in A stable condition with guarded prognosis. HISTORY OF PRESENT ILLNESS: This is a 64-year-old gentleman with a past medical history of multiple medical problems being followed by Dr. Gerard the outpatient, admitted with abdominal pain. The CAT scan showed possibly mesenteric panniculitis. Patient treated empirically with antibiotics, patient improved significantly. Patient discharged in stable condition. Guarded prognosis. On exam, vitals are stable. CARDIOVASCULAR: S1, S2. ABDOMEN: Soft. NERVOUS SYSTEM: No focal deficits. DISCHARGE INSTRUCTIONS: 1. Diet is cardiac diet. 2. Activity limited until followup. 3. Follow up with followup with Dr. Gerard in 2-3 days. 4. Follow up with Surgery in 1 week or p.r.n. MEDICATIONS: 1. Actos 30 mg p.o. daily. 2. Crestor 10 mg with lunch. 3. Ecotrin 81 mg p.o. daily. 4. Glucophage 500 mg t.i.d. 5. HydroDIURIL 25 mg with lunch. 6. Magnesium oxide 250 mg daily. 7. Norvasc 10 mg with supper. 8. Trulicity 0.75 mg subcu Friday. 9. Vasotec 20 mg p.o. b.i.d. 10.Xanax 0.5 mg q.h.s. 11.Augmentin 1 p.o. b.i.d. for 5 days. Once again, the patient will be discharged in a stable condition with guarded prognosis. MMODL / IJN: [id number] /
[2020-09-24] MEDS ORDERED: NON FORMULARY DRUG (Dulaglutide [Trulicity] 0.75 MG/0.5 ML Pen.Injctr) SQ SCH (21:00)
== END 2020-09-22 13:16 | disposition home or self-care (01) ==
LOC: EC 14:31 → 1SOBS 18:37
PROVIDERS: ADMIT Family Medicine; ATTEND Family Medicine
DX: R10.33 Periumbilical pain (principal); E11.65 Type 2 diabetes mellitus with hyperglycemia; I11.9 Hypertensive heart disease without heart failure; Z79.84 Long term (current) use of oral hypoglycemic drugs; Z95.0 Presence of cardiac pacemaker
CPT/HCPCS: 96361 ×3; 96366 ×3; 96375 ×2; 96376 ×2; 96365; 99285; 36415; 93005; 80053; 83605; 83690; 84484; 85025; 81003; 87040; 74177; G0378 ×3; J2543 ×3; J2270; J1170 ×2; J1885 ×2; Q9967

== ENCOUNTER → 2021-05-28 | Outpatient (CLI) | payer MEDICARE ==
--- NOTE | 2021-05-28 11:08 | CT ---
EXAMINATION TYPE: CT shoulder RT wo con DATE OF EXAM: 05/28/2021 COMPARISON: None HISTORY: 65-year-old male M75.121, Right shoulder rotator cuff tear TECHNIQUE: Contiguous axial scanning of the right shoulder without IV contrast. Coronal and sagittal reconstructions performed. 3-D reconstructions generated on a dedicated workstation. CT DLP: 268 mGycm Automated exposure control for dose reduction was used. FINDINGS: Left anterior chest wall pacemaker generator with right atrial, right ventricular, and coronary sinus leads. There is moderate degenerative change at the AC joint. No os acromiale. No Hill-Sachs deformi ty seen. There is severe degenerative change at the glenohumeral joint with [id number] articulation, margina l spurring, and a 8 mm subchondral geode posterior acetabulum. There is mild thinning of the glenoid bone stalk and overall 10 degrees of glenoid retroversion. There is either prominent distention of the subcoracoid bursa versus a ganglion cyst extending along the superior subscapularis myotendinous junction measuring up to 4.8 x 3.1 x 5.1 cm, reference axial image 26 and coronal image 24. Some tendon fibers are noted in the subacromial space. There is only mild decrease in muscle bulk of the supraspinatus and infraspinatus tendons though moderate fatty atrophy of the teres minor. No evid ent mass lesion within the quadrilateral space. No acute fracture, subluxation, dislocation. IMPRESSION: 1. SEVERE GH JOINT OA WITH ONLY MILD THINNING OF GLENOID BONE STOCK AND 10 DEGREES OF GLENOID RETROVE RSION. 2. THERE IS ISOLATED FATTY ATROPHY OF THE TERES MINOR WHICH MAY BE IDIOPATHIC OR MAY BE SEEN WITH TIANA DRILATERAL SPACE SYNDROME. NO EVIDENT MASS LESION IS IDENTIFIED IN THIS SPACE. 3. NO SIZABLE ROTATOR CUFF TEAR IS APPARENT BY CT. NOTE, EITHER A GANGLION CYST OR FLUID DISTENTION O F THE ANTERIOR SUBSCAPULARIS RECESS WITH MASS EFFECT ON TO THE SUBSCAPULARIS MYOTENDINOUS JUNCTION. T HIS CYSTIC STRUCTURE MEASURES UP TO 5.1 X 4 X 3.1 CM.
== END | disposition home or self-care (01) ==
LOC: RADCTMAIN 06:56
PROVIDERS: ATTEND Orthopaedic Surgery Sports Medicine
DX: M75.101 Unspecified rotator cuff tear or rupture of right shoulder, not specified as traumatic (principal); M19.011 Primary osteoarthritis, right shoulder; R22.31 Localized swelling, mass and lump, right upper limb

== ENCOUNTER → 2021-07-09 | Outpatient (CLI) | payer MEDICARE ==
[2021-07-09 11:17] LABS: HCT 39.8 % (39.0-53.0); HGB 13.4 gm/dL (13.0-17.5); MCH 30.5 pg (25.0-35.0); MCHC 33.8 g/dL (31.0-37.0); MCV 90.1 fL (80.0-100.0); Mean Platelet Volume 7.4; Platelet Count 215 k/uL (150-450); RBC 4.41 m/uL (4.30-5.90); RDW 13.8 % (11.5-15.5); WBC 4.1 k/uL (3.8-10.6)
[2021-07-09 11:32] LABS: INR 0.9 (<1.2); Partial Thromboplastin Time 25.3 sec (22.0-30.0); Prothrombin Time 10.2 sec (9.0-12.0)
[2021-07-09 11:35] LABS: ALT 17 U/L (4-49); AST 23 U/L (17-59); African American GFR (CKD) >90 (>60 ml/min/1.73 sqM); Alkaline Phosphatase 59 U/L (38-126); Anion Gap 9 mmol/L; Blood Urea Nitrogen 17 mg/dL (9-20); Calcium 9.6 mg/dL (8.4-10.2); Carbon Dioxide 29 mmol/L (22-30); Chloride 97 mmol/L (98-107); Glucose 167 mg/dL (74-99); Non-African American GFR(CKD) >90 (>60 ml/min/1.73 sqM); Potassium 4.1 mmol/L (3.5-5.1); Sodium 135 mmol/L (137-145); Total Bilirubin 0.4 mg/dL (0.2-1.3); Total Protein 6.6 g/dL (6.3-8.2)
[2021-07-09 11:46] LABS: Appearance,Urine Clear (Clear); Bilirubin,Urine Negative (Negative); Blood,Urine Negative (Negative); Color,Urine Yellow; Glucose,Urine (UA) Negative (Negative); Ketones,Urine Negative (Negative); Leukocyte Esterase,Urine Negative (Negative); Nitrite,Urine Negative (Negative); PH, Urine 6.5 (5.0-8.0); Protein,Urine Negative (Negative); Specific Gravity,Urine 1.016 (1.001-1.035); Urobilinogen,Urine <2.0 mg/dL (<2.0)
== END | disposition home or self-care (01) ==
LOC: LABPAT 09:16
PROVIDERS: ATTEND Orthopaedic Surgery Sports Medicine
DX: Z01.812 Encounter for preprocedural laboratory examination (principal)
CPT/HCPCS: 80053; 81003; 85027; 85610; 85730; 87070

== ENCOUNTER → 2021-07-09 | Outpatient (CLI) | payer MEDICARE ==
[2021-07-09 16:19] LABS: Chol/HDL Ratio 2.84
[2021-07-09 18:22] LABS: Hemoglobin A1C 8.3 % (4.0-6.0)
[2021-07-09 19:11] LABS: Urine Creatinine 138.3 mg/dL
[2021-07-09 19:54] LABS: Microalbumin Creatinine Ratio <30 mg/g Creat (0-30)
== END | disposition home or self-care (01) ==
LOC: LABWHC1 09:12
PROVIDERS: ATTEND Internal Medicine Interventional Cardiology
DX: E11.9 Type 2 diabetes mellitus without complications (principal); E78.2 Mixed hyperlipidemia; I10 Essential (primary) hypertension
CPT/HCPCS: 36415; 80061; 82043; 82570; 83036

== ENCOUNTER 2021-07-19 07:41 | Observation (INO) | payer MEDICARE ==
[2021-07-16 13:34] VITALS: BMI 32.7
[~2021-07-19 07:41] MED LIST: ACETAMINOPHEN TAB 500 MG TAB PO PRN; GABAPENTIN 300 MG CAP PO PRN; HYDROmorphone 0.5 MG/0.5 ML SYRINGE IVP PRN; MIDAZOLAM 2 MG/2 ML VIAL IV PRN; ONDANSETRON 4 MG/2 ML VIAL IVP PRN; TRANEXAMIC ACID 1,000 MG in SODIUM CHLORIDE 0.9% 100 ML IVPB PRN
[2021-07-19] MEDS: LACTATED RINGERS 1,000 ML IV SCH ×4 (08:25→17:25)
[2021-07-19 08:37] LABS: Glucose,Whole Blood 161 mg/dL (75-99)
--- NOTE | 2021-07-19 10:31 | P.ANPRN ---
Procedure Note - Anesthesia - Nerve Block Performed Right Interscalene Single Time Out Performed: Yes ([id number]) Date of Procedure: 07/19/21 Procedure Start Time: :15 Procedure Stop Time: Location of Patient: PreOp Indication: Acute Post-Operative Pain, Requested by Surgeon Specifically requested for management of pain by DrJenny: Dennis Garcia Sedation Type: Sedate with meaningful contact maintained Preparation: Sterile Prep Position: Supine Catheter: None Needle Types: Pajunk Needle Gauge: 21 Ultrasound used to visualize needle placement: Yes Ultrasound used to observe medication spread: Yes Injectate: 0.5% Ropivacaine (see comment for volume) (30cc) Blood Aspirated: No Pain Paresthesia on Injection Noted: No Resistance on Injection: Normal Image Stored and Saved: Yes Events: Uneventful and Well Tolerated
[2021-07-19] MEDS ORDERED: ROPIVACAINE 5 MG/ML 30 ML VIAL ONE (11:30)
[2021-07-19] MEDS ORDERED: SODIUM CHLORIDE 0.9% 100 ML BAG ONE (11:30)
[2021-07-19] MEDS ORDERED: NEOSTIGMINE 1 MG/ML 10 ML VIAL ONE (11:30)
[2021-07-19] MEDS ORDERED: WATER FOR INJECTION, STERILE 10 ML VIAL IV ONE (11:30)
[2021-07-19] MEDS ORDERED: ROCURONIUM 10 MG/ML (5 ML VIAL) IV ONE (11:30)
[2021-07-19] MEDS ORDERED: PHENYLEPHRINE-0.9% NACL SYG 1,000 MCG/10 ML SYRINGE ONE (11:30)
[2021-07-19] MEDS ORDERED: SUCCINYLCHOLINE CHLORIDE 100 MG/5 ML SYR IV ONE (11:30)
[2021-07-19] MEDS ORDERED: ePHEDrine SULFATE/0.9% NACL/PF 50 MG/5 ML SYRINGE IV ONE (11:30)
[2021-07-19] MEDS ORDERED: TRANEXAMIC ACID 1,000 MG/10 ML VIAL ONE (11:30)
[2021-07-19] MEDS ORDERED: MIDAZOLAM 2 MG/2 ML VIAL ONE (11:30)
[2021-07-19] MEDS ORDERED: PROPOFOL 10 MG/ML 20 ML VIAL IV ONE (11:30)
[2021-07-19] MEDS ORDERED: LIDOCAINE 1% INJ 10MG/ML (20 ML MDV) ONE (11:30)
[2021-07-19] MEDS ORDERED: fentaNYL (PF) 50 MCG/ML 2 ML AMP ONE (11:30)
[2021-07-19] MEDS ORDERED: GLYCOPYRROLATE 0.2 MG/ML 2 ML VIAL ONE (11:30)
[2021-07-19] MEDS ORDERED: hydrOXYzine pamoate 25 MG CAP PO PRN (11:44)
[2021-07-19] MEDS ORDERED: TEMAZEPAM 15 MG CAP PO PRN (11:44)
[2021-07-19] MEDS ORDERED: HYDROmorphone 0.2 MG/1 ML SYRINGE IVP PRN (11:44)
[2021-07-19] MEDS ORDERED: diphenhydrAMINE 25 MG CAP PO PRN (11:44)
[2021-07-19] MEDS ORDERED: METOCLOPRAMIDE 5 MG/ML 2 ML VIAL IVP PRN (11:44)
[2021-07-19] MEDS ORDERED: SENNOSIDES-DOCUSATE SODIUM 1 EACH TAB PO PRN (11:44)
[2021-07-19] MEDS ORDERED: HYDROmorphone 0.5 MG/0.5 ML SYRINGE IVP PRN (11:44)
[2021-07-19] MEDS ORDERED: VANCOMYCIN 1,000 MG VIAL MISCELLANE ONE (12:12)
[2021-07-19 14:27] LABS: Glucose,Whole Blood 129 mg/dL (75-99)
--- NOTE | 2021-07-19 14:27 | XR ---
EXAMINATION TYPE: XR shoulder limited RT DATE OF EXAM: 07/19/2021 COMPARISON: NONE HISTORY: 65-year-old male postoperative evaluation TECHNIQUE: Single AP view FINDINGS: Single postoperative image shows placement of right total shoulder arthroplasty. Scattered soft tissue air related to recent operation. A surgical drain is in place. IMPRESSION: Uncomplicated postoperative appearance right total shoulder arthroplasty.
[2021-07-19] MEDS: HYDROmorphone 0.5 MG/0.5 ML SYRINGE IVP PRN (15:18)
[2021-07-19] MEDS ORDERED: HYDROcodone/APAP 7.5-325MG 1 EACH TAB PO PRN (15:29)
[2021-07-19] MEDS: HYDROcodone/APAP 7.5-325MG 1 EACH TAB PO PRN (15:40)
[2021-07-19] MEDS: ONDANSETRON 4 MG/2 ML VIAL IVP PRN (17:21)
[2021-07-19] MEDS: BENZOCAINE/MENTHOL LOZENG 1 EACH LOZENGE MUCOUS MEM PRN (19:45)
[2021-07-19 20:26] LABS: Glucose,Whole Blood 240 mg/dL (75-99)
[2021-07-19] MEDS: ATORVASTATIN 20 MG TAB PO SCH (20:59)
[2021-07-19] MEDS: lisinopriL 20 MG TAB PO SCH (20:59)
[2021-07-19] MEDS ORDERED: ALPRAZolam 0.5 MG TAB PO SCH (21:00)
[2021-07-19] MEDS: INSULIN ASPART (NovoLOG) 100 UNIT/ML VIAL SQ SCH (21:00)
--- NOTE | 2021-07-19 21:02 | CONS ---
CONSULTATION DATE OF SERVICE: 07/19/2021 REASON FOR CONSULTATION: Advice regarding diabetes mellitus, hypertension and other medical issues requested by Dr. Mclean. HISTORY OF PRESENT ILLNESS: This 65-year-old gentleman with a past medical history of diabetes, hypertension, hyperlipidemia, DJD, being followed by Dr. Gerard in the outpatient setting, was admitted for right shoulder arthroplasty. There is no history of any fever, rigors or chills. No history of headache, loss of consciousness, seizures at this time. The patient is complaining of some sore throat postoperatively. PAST MEDICAL HISTORY: Diabetes mellitus, hypertension, hyperlipidemia, DJD. MEDICATIONS: Home medications are Glucophage, HydroDIURIL, Norvasc, Crestor, Actos, multivitamins, magnesium oxide, Victoza, Vasotec, Ecotrin, Xanax. Doses are reviewed. ALLERGIES: HYDRALAZINE, SULFA AND BACTRIM. FAMILY HISTORY: History of DVT, myeloplastic syndrome. SOCIAL HISTORY: No history of smoking. Occasional alcohol intake. REVIEW OF SYSTEMS: ENT: No diminished hearing. No diminished vision. Otherwise as mentioned earlier. CARDIOVASCULAR SYSTEM: No angina, palpitations. RESPIRATORY SYSTEM: No cough, hemoptysis. GI: No nausea, vomiting, diarrhea. : No dysuria. NERVOUS SYSTEM: No numbness, weakness. ALLERGY/IMMUNOLOGY: No asthma or hay fever. MUSCULOSKELETAL: As mentioned earlier. HEMATOLOGY/ONCOLOGY: No history of anemia. ENDOCRINE: ntd CONSTITUTIONAL: As mentioned earlier. DERMATOLOGY: Negative. RHEUMATOLOGY: Negative. PSYCHIATRY: As mentioned earlier. PHYSICAL EXAMINATION: Patient alert and oriented x3. Pulse 84, blood pressure 149/80, respiration 20, temperature normal, pulse ox 96% on room air. HEENT: Conjunctivae normal. NECK: No jugular venous distention. CARDIOVASCULAR: S1, S2 muffled. RESPIRATION: Breath sounds diminished at the bases. A few rhonchi. No crackles. ABDOMEN: Soft, obese, non-tender. LEGS: No edema. No swelling. NERVOUS SYSTEM: Higher functions as mentioned earlier. Moves all 4 limbs. No focal motor or sensory deficit. LYMPHATICS: No lymph node palpable in neck, axillae or groin. SKIN: No ulcer, rash, bleeding. JOINTS: Status post right shoulder arthroplasty. LABS: Accu-Cheks 161, 129. ASSESSMENT: 1. Status post right total knee arthroplasty. 2. Diabetes mellitus, type 2. 3. Hypertension. 4. Hyperlipidemia. 5. Degenerative joint disease. 6. History of adenoidectomy. 7. History of hernia repair. 8. History of pacemaker. 9. History of anxiety. 10.Obesity with body mass index of 31.9. 11.FULL CODE. RECOMMENDATIONS AND DISCUSSION: In this 65-year-old gentleman who presented with multiple medical issues, we will monitor the patient closely, continue the current medications, continue symptomatic treatment. We will resume the home medication. Monitor Accu-Cheks closely. DVT prophylaxis. Incentive spirometry. We will follow the patient closely with you. The patient may be asked to follow up with his primary physician closely after discharge. Thank you, Dr. Mclean, for letting us participate in the care of this patient. CHARLI / JUAN MANUELN: [id number] / MTDD
[2021-07-19] MEDS ORDERED: ALPRAZolam 0.5 MG TAB PO PRN (21:17)
--- NOTE | 2021-07-19 21:33 | OP ---
OPERATIVE REPORT DATE OF PROCEDURE: 07/19/2021 SURGEON: Dennis Garcia M.D. MAT MAKING MACHINE TENDER: James Briggs PA-C PREOPERATIVE DIAGNOSIS: Right shoulder osteoarthrosis. POSTOPERATIVE DIAGNOSIS: Right shoulder osteoarthrosis. OPERATION: Right total shoulder arthroplasty. ANESTHESIA: General endotracheal. ESTIMATED BLOOD LOSS: 150 mL. DRAINS: One deep drain. COMPLICATIONS: None apparent. DISPOSITION: Post-Anesthesia Care Unit INDICATIONS: Mr. Vila is a very pleasant 65-year-old male with longstanding right shoulder pain. Workup including x-rays revealed advanced osteoarthrosis of the right shoulder. At this point, it was felt that he has failed conservative management and he would like to proceed with operative intervention. The risks of the procedure were discussed with him in detail. These risks include but are not limited to risk of infection, nerve damage, bleeding, pain, instability in the shoulder, loosening of the implants and deep infection. There is also a small risk of deep vein thrombosis which could lead to fatal pulmonary embolism. The patient understands the risks. All of his questions with regard to the risks of the procedure were answered to his satisfaction. Appropriate informed consent was obtained. DESCRIPTION OF PROCEDURE: The patient was identified in the preoperative holding area. Surgical site was marked by both the patient and myself. He was given 2 grams of Ancef IV for prophylactic purposes. He was then transferred to the operative suite. He was placed supine on the operating room table. General anesthetic was then administered and dosed per the anesthesia department without apparent complication. Examination under anesthesia was then performed. He had elevation to 140 degrees. External rotation to the side was to 40 degrees. The patient was then placed into a modified beach chair position, well padded in preparation for surgery. Great care was taken to ensure that his cervical spine was in neutral alignment, well padded and maintained that way throughout the operative procedure. Great care was also taken to ensure that his legs were appropriately padded as well. The patient's right upper extremity was then prepped and draped in usual sterile fashion. Standard surgical pause was undertaken to ensure that we were operating on the correct site and that appropriate preoperative antibiotics had been given. All staff in the room were in agreement and we proceeded. The acromion, AC joint, clavicle and coracoid were marked with a surgical pen. A planned incision starting at the level of the clavicle and extending distally over the deltopectoral interval approximately 1 cm lateral to the coracoid was marked with a surgical pen. The incision was then made with a 10 blade scalpel. Dissection was carried down sharply to the deltoid fascia. Hemostasis was achieved with electrocautery. The deltopectoral interval was then identified at the level of the clavicle. A small band retractor was then placed under the proximal deltoid. I then released the deltoid fascia on the lateral aspect of the cephalic vein. The vein was preserved and left in its bed medially. The cephalic vein was protected throughout the entire case. I then identified the clavipectoral fascia. This was incised proximally at the level of the coracoacromial ligament. The coracoacromial ligament was left intact. I then used my finger to spread the interval between the conjoint tendon and the subscapularis. I felt for the axillary nerve, which was readily palpable. I then cleared the subacromial and subdeltoid spaces of bursal and scar tissue. I then utilized a Jiang retractor to hold the deltoid and expose the humeral head. At this point, he had fairly significant fluid distention of the sheath of the long head of the biceps tendon. This was then incised. The long head of the biceps tendon was then tenotomized to the soft tissues just distal to the bicipital groove. It was also then released proximally to the tenodesis. I then proceeded with release of the subscapularis in the anterior inferior shoulder capsule. The rotator cuff was inspected. It was found to be intact without any evidence of tearing. The rotator interval was identified. Again the course of the biceps tendon was identified. I then released the rotator interval. This was released at the base of the coracoid and then out laterally. The subscapularis and capsule were then released intratendinously. The subscapularis and capsule release extended distally in a lazy-S fashion approximately 1 cm medial to the biceps tendon. I then continued to release the capsule along the inferior neck in a vertical fashion to approximately the 6 o'clock position. Great care was taken to ensure that the capsule was always visualized as it was released as to avoid injuring the axillary nerve. I then brought the [place] vineyard worker with the arm externally rotated and abducted. I continued to release the capsule inferomedially to the 4 o'clock position. Inferior osteophytes were now removed as well. This is done with a rongeur. I then proceeded with preparation of the humerus. I removed all the goat's [place] garza osteophytes. I then removed the subchondral plate from the superior aspect of the humeral head utilizing a large rongeur. I then used the starting reamer to gain access to the humeral canal. This was approximately 1 cm medial to the rotator cuff insertion and 1 cm posterior to the bicipital groove. I then prepared the humeral canal with hand reaming. I started with a 6 mm reamer and incrementally increased until resistance was encountered at 14 mm. The reamer handle was then left in place. I then utilized a humeral resection guide set at 30 degrees of retrotorsion. The cutting block was then set 1-2 mm above the insertion of the rotator cuff. I then proceeded to osteotomize the humeral head with an oscillating saw. I removed the resection guide and then completed the osteotomy. I then proceeded with trial stem placement. A trial size 14 stem was then broached in the canal starting with a 6 mm broach and then incrementally increasing up to a 14 mm broach. The 14 mm trial stem was then left in place. I then proceeded with trial reduction. I started with a 46 x 24 x 47 head. This was a little bit loose and slightly small. Then with a 50 x 24 x 52 head, this seemed to fit very nicely. The head fit opposite the glenoid. The rotator cuff was not tented. Internal rotation was to 90 degrees. Elevation was to 150 degrees and translation was one-half of the humeral head in neutral rotation and inferiorly it was one-quarter of the head in 15-20 degrees of abduction. I then removed the trial head. The stem was then left in place to protect the proximal humerus. I then proceeded with exposure of the glenoid. At this point, a bone hook was then used to pull the humerus out laterally. Then I inspected the joint for any loose bodies. The condition of the rotator cuff was again inspected. It was in excellent condition. A Bhattman retractor was then placed on the posterior glenoid rim. The arm was then placed in approximately 80 degrees of abduction and in slight flexion on the [place] stand. I then proceeded to remove the hypertrophic labrum and the proximal aspect of the long head of the biceps tendon. This was done to definitively identify the actual glenoid. I then selected the size of the glenoid. The largest size, a size 5, seemed to fit very nicely. I then utilized a starting drill to make the centering hole. I then proceeded to ream the glenoid fossa. This was done with the size 5 reamer. The reaming was then taken down to a paprika sign. It had a nice bleeding surface. As minimal amount of bone was reamed as possible, as to preserve as much subchondral bone as possible. I then placed a trial size 5 glenoid and it fit very nicely onto the glenoid. I then proceeded with cementing. I Waterpik'd the wound and the bone with sterile saline solution with antibiotic added. The drill holes were then packed with [employer] sponges. The cement was then mixed on the back table by the rehabilitation assistant. The drill holes were then packed with cement utilizing a 20 mL syringe. These were packed very tightly. A small amount of cement was then placed onto the posterior aspect of the real glenoid component. The central Regenerex peg did not have any cement put on it. I then impacted the real glenoid into place. It was a Biomet size 5 pegged glenoid component with a Regenerex central peg. The excess cement was removed utilizing a [place] elevator. Pressure was held on the glenoid component until the cement had hardened. I then removed the Bhattman retractor. I then proceeded with humeral component trial reduction with the real glenoid. A 50 x 24 x 52 head was then placed back onto the stem. Again this was taken through a trial. The head opposite the glenoid. The rotator cuff was not tented. Elevation was 150 degrees. Internal rotation was to 90 degrees and translation was one-half of the head in neutral rotation and one-quarter of the head in 15 to 20 degrees of abduction. I then had the loan representative open a 50 x 24 x 52 real head and a size 14 Biomet Mini Stem. The stem was then impacted into the canal in 30 degrees of retrotorsion. The real head was then impacted onto a dried [place] taper of the stem. The shoulder was then reduced. I then proceeded with closure. Again the wound was thoroughly irrigated with sterile saline solution with antibiotic added. The rotator interval was closed with multiple #2 Vicryl sutures. The subscapularis and the anterior capsule were repaired with interrupted #2 FiberWire sutures. The axillary nerve was then felt for, and it was intact. Again the wound was thoroughly irrigated with sterile saline solution with antibiotic padded. A deep drain was then placed and brought out superiorly away from the incision. Approximately 500 mg of vancomycin powder was then placed deep into the wound. The deltopectoral interval was then loosely closed with interrupted 0 Vicryl suture. Again the wound was thoroughly irrigated with sterile saline solution with antibiotic added. The remaining 500 mg of vancomycin powder was then placed subcutaneously. The subcutaneous tissue was closed with 2-0 Vicryl interrupted suture and the skin was closed with a running 3-0 Quill suture. Dermabond was then applied to the incision. A sterile dressing was then applied. The patient's right upper extremity was placed into a shoulder immobilizer. All sponge and needle counts were deemed correct prior to closure. The patient tolerated the procedure without apparent complication. He was transferred to the recovery room in stable condition. MMODL / JUAN MANUELN: [id number] /
[2021-07-20] MEDS: HYDROmorphone 0.5 MG/0.5 ML SYRINGE IVP PRN ×2 (00:07→03:26)
[2021-07-20] MEDS: HYDROcodone/APAP 7.5-325MG 1 EACH TAB PO PRN ×2 (01:13→08:19)
[2021-07-20] MEDS: NON FORMULARY DRUG (Liraglutide [Victoza 2-Pak] 0.6 MG/0.1 ML Pen.Injctr) SQ SCH ×2 (02:13→21:28)
[2021-07-20 07:03] LABS: Glucose,Whole Blood 163 mg/dL (75-99)
[2021-07-20] MEDS: metFORMIN 500 MG TAB PO SCH ×3 (08:19→16:55)
[2021-07-20] MEDS: INSULIN ASPART (NovoLOG) 100 UNIT/ML VIAL SQ SCH ×4 (08:19→21:22)
[2021-07-20] MEDS: ASPIRIN 81 MG PO SCH (08:19)
[2021-07-20] MEDS: MULTIVITAMINS, THERA 1 EACH TAB PO SCH (08:19)
[2021-07-20] MEDS: lisinopriL 20 MG TAB PO SCH ×2 (08:19→21:22)
[2021-07-20] MEDS: MAGNESIUM OXIDE 400 MG TAB PO SCH (08:19)
[2021-07-20] MEDS: LACTATED RINGERS 1,000 ML IV SCH (08:20)
[2021-07-20] MEDS: PIOGLITAZONE 30 MG TAB PO SCH (08:25)
[2021-07-20 11:05] LABS: ALT 14 U/L (4-49); AST 24 U/L (17-59); African American GFR (CKD) >90 (>60 ml/min/1.73 sqM); Albumin/Globulin Ratio 1.4; Alkaline Phosphatase 45 U/L (38-126); Anion Gap 7 mmol/L; Blood Urea Nitrogen 11 mg/dL (9-20); Calcium 8.5 mg/dL (8.4-10.2); Carbon Dioxide 24 mmol/L (22-30); Chloride 97 mmol/L (98-107); Globulin 2.2 g/dL; Glucose 168 mg/dL (74-99); Non-African American GFR(CKD) >90 (>60 ml/min/1.73 sqM); Potassium 3.6 mmol/L (3.5-5.1); Sodium 128 mmol/L (137-145); Total Bilirubin 0.4 mg/dL (0.2-1.3); Total Protein 5.2 g/dL (6.3-8.2)
[2021-07-20 11:14] LABS: Basophils # (A) 0.01 X 10*3/uL (0.00-0.10); Basophils % (A) 0.2 %; Eosinophils # (A) 0.02 X 10*3/uL (0.04-0.35); Eosinophils % (A) 0.4 %; HCT 31.7 % (39.6-50.0); HGB 10.2 g/dL (13.0-17.0); Lymphocytes # (A) 0.65 X 10*3/uL (0.90-5.00); Lymphocytes % (A) 11.8 %; MCH 28.7 pg (27.0-32.0); MCHC 32.2 g/dL (32.0-37.0); MCV 89.3 fL (80.0-97.0); Mean Platelet Volume 10.2 fL (9.5-12.2); Monocytes # (A) 0.35 X 10*3/uL (0.20-1.00); Monocytes % (A) 6.3 %; Neutrophils # (A) 4.48 X 10*3/uL (1.80-7.70); Neutrophils % (A) 80.9 %; Platelet Count 161 X 10*3/uL (140-440); RBC 3.55 X 10*6/uL (4.40-5.60); RDW 13.3 % (11.5-14.5); WBC 5.53 X 10*3/uL (4.50-10.00)
[2021-07-20] MEDS ORDERED: HYDROcodone/APAP 10-325MG 1 EACH TAB PO PRN (11:20)
[2021-07-20 11:47] LABS: Glucose,Whole Blood 178 mg/dL (75-99)
--- NOTE | 2021-07-20 11:48 | P.PN ---
Subjective Progress Note Date: 07/20/21 Principal diagnosis: S/P Right TSA Patient is seen at bedside this morning. He is postop day #1 from right total shoulder arthroplasty. He has pain at the surgical site as expected. He has some urinary retention. He denies any other new complaints. He denies numbness, tingling or calf pain. Review of systems is negative for fever, chills, chest pain, shortness of breath or other Objective - Vital Signs Vital signs: Vital Signs Temp 98.6 F 07/20/21 06:50 Pulse 91 07/20/21 06:50 Resp 18 07/20/21 06:50 BP 130/71 07/20/21 06:50 Pulse Ox 91 L 07/20/21 06:50 Intake & Output 07/19/21 07/20/21 07/20/21 18:59 06:59 18:59 Intake Total 2070 Output Total 155 2750 Balance 1915 -2750 Weight 101 kg Intake: IV 1650 Oral 420 Output: Drainage 5 Right 5 Urine 2750 Straight 1000 Estimated Blood Loss 150 Other: Voiding Method Toilet Urinal Urinal - Exam Inspection reveals a benign surgical wound. There is no active bleeding or drainage. Neurovascular status is intact throughout the upper extremity with motor and sensation fully intact. Calf is soft and nontender. 2+ radial pulse and less than 2 second cap refill is present. - Constitutional General appearance: Present: no acute distress - Labs CBC & Chem 7: 07/20/21 07:32 07/20/21 07:32 Labs: Abnormal Lab Results - Last 24 Hours (Table) 07/19/21 07/19/21 07/20/21 Range/Units 14:26 20:23 07:02 RBC (4.40-5.60) X 10*6/uL Hgb (13.0-17.0) g/dL Hct (39.6-50.0) % Lymphocytes # (0.90-5.00) X 10*3/uL Eosinophils # (0.04-0.35) X 10*3/uL Sodium (137-145) mmol/L Chloride (98-107) mmol/L Glucose (74-99) mg/dL POC Glucose (mg/dL) 129 H 240 H 163 H (75-99) mg/dL Total Protein (6.3-8.2) g/dL Albumin (3.5-5.0) g/dL 07/20/21 07/20/21 Range/Units 07:32 07:32 RBC 3.55 L (4.40-5.60) X 10*6/uL Hgb 10.2 L (13.0-17.0) g/dL Hct 31.7 L (39.6-50.0) % Lymphocytes # 0.65 L (0.90-5.00) X 10*3/uL Eosinophils # 0.02 L (0.04-0.35) X 10*3/uL Sodium 128 L (137-145) mmol/L Chloride 97 L (98-107) mmol/L Glucose 168 H (74-99) mg/dL POC Glucose (mg/dL) (75-99) mg/dL Total Protein 5.2 L (6.3-8.2) g/dL Albumin 3.0 L (3.5-5.0) g/dL Assessment and Plan (1) Osteoarthritis of right shoulder Narrative/Plan: He will continue with routine postop orthopedic protocol including pain management, wound care, DVT prophylaxis and medical management. Flomax is ordered. Urology consult requested for retention. Encourage IS. Expect that he will transfer to home tomorrow Current Visit: Yes Status: Acute Priority: Medium Code(s): M19.011 - PRIMARY OSTEOARTHRITIS, RIGHT SHOULDER SNOMED Code(s): 138080344116702 Time with Patient: Less than 30
[2021-07-20] MEDS: TAMSULOSIN 0.4 MG CAP.ER.24H PO SCH (12:33)
[2021-07-20] MEDS: hydroCHLOROthiazide 25 MG TAB PO SCH (12:33)
[2021-07-20] MEDS: BENZOCAINE/MENTHOL LOZENG 1 EACH LOZENGE MUCOUS MEM PRN (12:40)
[2021-07-20] MEDS: HYDROcodone/APAP 10-325MG 1 EACH TAB PO PRN ×2 (12:41→16:55)
[2021-07-20 17:06] LABS: Glucose,Whole Blood 221 mg/dL (75-99)
[2021-07-20] MEDS ORDERED: amLODIPine 10 MG TAB PO SCH (17:30)
--- NOTE | 2021-07-20 17:38 | P.GSCN ---
History of Present Illness Consult date: 07/20/21 Reason for Consult: Urinary retention History of present illness: This is a 65-year-old male postop day #1 status post right total shoulder ar throplasty. Patient developed urinary retention postoperatively, requiring Catherization X 1. He indicated last night and this morning he's been having difficulty voiding, but this has improved this morning. He indicated he's voiding denies any pain. No gross hematuria or dysuria. He continues to have elevated PVR in 300-400 ml, but is improving. Review of Systems - Constitutional Denies fever, Denies weight loss - Cardiovascular Denies chest pain, Denies shortness of breath - Gastrointestinal Reports as per HPI - Genitourinary Reports urinary retention, Denies dysuria, Denies flank pain, Denies hematuria - Integumentary Denies rash, Denies unusual bruising - Neurological Denies headaches, Denies syncope Past Medical History Past Medical History: Diabetes Mellitus, Hyperlipidemia, Hypertension, Osteoarthritis (OA) Additional Past Medical History / Comment(s): constipation/loose stool, bone spurs rt shoulder, hx heart [place], "heart block", 08/2020-"infection in stomach", History of Any Multi-Drug Resistant Organisms: None Reported Past Surgical History: Adenoidectomy, Hernia Repair, Pacemaker, Tonsillectomy Additional Past Surgical History / Comment(s): umbilical hernia as infant, kate inguinal hernia Past Anesthesia/Blood Transfusion Reactions: No Reported Reaction Additional Past Anesthesia/Blood Transfusion Reaction / Comm: "oxygen levels and heartrate goes down when laying flat on back" Type of Cardiac Device: Permanent Pacemaker Device Placement Date:: 05/2020 Past Psychological History: Anxiety Smoking Status: Never smoker Past Alcohol Use History: Occasional Past Drug Use History: None Reported - Past Family History Father Family Medical History: Deep Vein Thrombosis (DVT) Additional Family Medical History / Comment(s): QUESTIONABLE CAD Mother Family Medical History: No Reported History Additional Family Medical History / Comment(s): myloplastic syndrome Brother(s) Family Medical History: AICD/Pacemaker Medications and Allergies Home Medications Medication Instructions Recorded Confirmed Type ALPRAZolam [Xanax] 0.5 mg PO HS 03/21/20 07/19/21 History Pioglitazone [Actos] 30 mg PO DAILY 03/21/20 07/19/21 History amLODIPine [Norvasc] 10 mg PO W/SUPPER 03/21/20 07/19/21 History metFORMIN HCL ER [Glucophage XR] 500 mg PO TID-W/MEALS 03/21/20 07/19/21 History Enalapril Maleate [Vasotec] 20 mg PO BID 06/05/20 07/19/21 History Magnesium Oxide [Mag-Ox] 250 mg PO DAILY 06/05/20 07/19/21 History Rosuvastatin Calcium [Crestor] 10 mg PO HS 06/05/20 07/19/21 History hydroCHLOROthiazide [Hydrodiuril] 25 mg PO W/LUNCH 06/05/20 07/19/21 History Aspirin EC [Ecotrin Low Dose] 81 mg PO QAM 09/20/20 07/19/21 History Multivitamins, Thera [Multivitamin 1 tab PO DAILY 07/16/21 07/19/21 History (formulary)] Liraglutide [Victoza 2-Xu] 1.8 mg SQ HS 07/17/21 07/19/21 History Docusate [Colace] 100 mg PO BID #60 capsule 07/20/21 Rx Doxycycline Hyclate 100 mg PO BID #10 tab 07/20/21 Rx HYDROcodone/APAP 10-325MG [[place] 1 tab PO Q4HR PRN #42 tab 07/20/21 Rx 10-325] Allergies Allergy/AdvReac Type Severity Reaction Status Date / Time hydralazine Allergy "pounding Verified 07/19/21 08:15 heart" Sulfa (Sulfonamide Allergy Rash/Hives Verified 07/19/21 08:15 Antibiotics) sulfamethoxazole Allergy Rash/Hives, Verified 07/19/21 08:15 [From Bactrim] neck swelling trimethoprim [From Bactrim] Allergy Rash/Hives, Verified 07/19/21 08:15 neck swelling Surgical - Exam Vital Signs Temp Pulse Resp BP Pulse Ox 97 F L 72 16 134/76 96 07/19/21 08:23 07/19/21 08:23 07/19/21 08:23 07/19/21 08:23 07/19/21 08:23 - General well developed, well nourished, no distress, moderate pain - Eyes PERRL, normal ocular movement - ENT normal nares, normal mucosa - Respiratory normal expansion, normal respiratory effort - Abdomen Abdomen: soft, non tender - Psychiatric oriented to time, oriented to person, oriented to place Results - Labs 07/20/21 07:32 07/20/21 07:32 Abnormal Lab Results - Last 24 Hours (Table) 07/19/21 07/20/21 07/20/21 Range/Units 20:23 07:02 07:32 RBC 3.55 L (4.40-5.60) X 10*6/uL Hgb 10.2 L (13.0-17.0) g/dL Hct 31.7 L (39.6-50.0) % Lymphocytes # 0.65 L (0.90-5.00) X 10*3/uL Eosinophils # 0.02 L (0.04-0.35) X 10*3/uL Sodium (137-145) mmol/L Chloride (98-107) mmol/L Glucose (74-99) mg/dL POC Glucose (mg/dL) 240 H 163 H (75-99) mg/dL Total Protein (6.3-8.2) g/dL Albumin (3.5-5.0) g/dL 07/20/21 07/20/21 07/20/21 Range/Units 07:32 11:46 17:05 RBC (4.40-5.60) X 10*6/uL Hgb (13.0-17.0) g/dL Hct (39.6-50.0) % Lymphocytes # (0.90-5.00) X 10*3/uL Eosinophils # (0.04-0.35) X 10*3/uL Sodium 128 L (137-145) mmol/L Chloride 97 L (98-107) mmol/L Glucose 168 H (74-99) mg/dL POC Glucose (mg/dL) 178 H 221 H (75-99) mg/dL Total Protein 5.2 L (6.3-8.2) g/dL Albumin 3.0 L (3.5-5.0) g/dL Diabetes panel 07/20/21 Range/Units 07:32 Sodium 128 L (137-145) mmol/L Potassium 3.6 (3.5-5.1) mmol/L Chloride 97 L (98-107) mmol/L Carbon Dioxide 24 (22-30) mmol/L BUN 11 (9-20) mg/dL Creatinine 0.73 (0.66-1.25) mg/dL Glucose 168 H (74-99) mg/dL Calcium 8.5 (8.4-10.2) mg/dL AST 24 (17-59) U/L ALT 14 (4-49) U/L Alkaline Phosphatase 45 (38-126) U/L Total Protein 5.2 L (6.3-8.2) g/dL Albumin 3.0 L (3.5-5.0) g/dL Calcium panel 07/20/21 Range/Units 07:32 Calcium 8.5 (8.4-10.2) mg/dL Albumin 3.0 L (3.5-5.0) g/dL Pituitary panel 07/20/21 Range/Units 07:32 Sodium 128 L (137-145) mmol/L Potassium 3.6 (3.5-5.1) mmol/L Chloride 97 L (98-107) mmol/L Carbon Dioxide 24 (22-30) mmol/L BUN 11 (9-20) mg/dL Creatinine 0.73 (0.66-1.25) mg/dL Glucose 168 H (74-99) mg/dL Calcium 8.5 (8.4-10.2) mg/dL Adrenal panel 07/20/21 Range/Units 07:32 Sodium 128 L (137-145) mmol/L Potassium 3.6 (3.5-5.1) mmol/L Chloride 97 L (98-107) mmol/L Carbon Dioxide 24 (22-30) mmol/L BUN 11 (9-20) mg/dL Creatinine 0.73 (0.66-1.25) mg/dL Glucose 168 H (74-99) mg/dL Calcium 8.5 (8.4-10.2) mg/dL Total Bilirubin 0.4 (0.2-1.3) mg/dL AST 24 (17-59) U/L ALT 14 (4-49) U/L Alkaline Phosphatase 45 (38-126) U/L Total Protein 5.2 L (6.3-8.2) g/dL Albumin 3.0 L (3.5-5.0) g/dL Assessment and Plan Assessment: 65 yo male S/P right total shoulder arthroplasty, developed retention pos toperatively, he is now voiding, but continues to have elevated PVR, he is currently asymptomatic. Urinary retention is most likely secondary to recent surgery, anesthesia and pain medication -Obtain a PVR after patient voids, if greater than 400 then can straight cath, if less than that, then can continue to trend his PVR -Continue Flomax, recommend to discharge one 1 week Flomax -If PVR persistently is above 400 mL, then can be discharged with a Silverman tomorrow, can follow-up in 5-7 days for trial of void as an outpatient. But if retention resolves then can follow-up on as-needed basis
--- NOTE | 2021-07-20 17:51 | PN ---
PROGRESS NOTE DATE OF SERVICE: 07/20/2021 This 65-year-old gentleman who was admitted after right total knee joint arthroplasty is being closely monitored at this time. Orthopedic Surgery is closely monitoring the patient. Patient has some urinary retention and Flomax has been initiated and Urology has been consulted. No chest pain. No palpitations. No fever. PHYSICAL EXAMINATION: Alert and oriented x3. Pulse 88, pressure 124/70, respiration 18, temperature 98.4, pulse ox 94% on room air. HEENT: Conjunctivae normal. NECK: No jugular venous distention. CARDIOVASCULAR: S1, S2 muffled. RESPIRATION: Breath sounds diminished at the bases. No rhonchi. No crackles. ABDOMEN: Soft. SHOULDER: Status post surgery. LEGS: No edema. No swelling. NERVOUS SYSTEM: No focal deficit. LAB STUDIES: WBC 5.5, hemoglobin 10.2. Sodium 128, potassium 3.6. Glucose noted. ASSESSMENT: 1. Status post right total knee arthroplasty. 2. Diabetes mellitus, type 2. 3. Mild hyponatremia. 4. Hypertension. 5. Hyperlipidemia. 6. Degenerative joint disease. 7. History of adenoidectomy. 8. History of hernia surgery. 9. History of pacemaker. 10.History of anxiety. 11.Obesity with body mass index 31.9. 12.Urinary retention; possibly benign prostatic hypertrophy. 13.FULL CODE. RECOMMENDATIONS AND DISCUSSION: I recommend to continue current medications, continue with symptomatic treatment. Otherwise, I would recommend Flomax. Urology evaluation. Continue the rest of the medications and monitor electrolytes closely. Recommend outpatient followup. Further recommendations to follow. MMODL / IJN: [id number] /
[2021-07-20 20:32] LABS: Glucose,Whole Blood 235 mg/dL (75-99)
[2021-07-20] MEDS: ATORVASTATIN 20 MG TAB PO SCH (21:22)
[2021-07-21] MEDS: HYDROcodone/APAP 10-325MG 1 EACH TAB PO PRN ×3 (02:59→12:12)
[2021-07-21 06:45] LABS: Glucose,Whole Blood 265 mg/dL (75-99)
[2021-07-21 07:43] VITALS: BP 153/84; PULSE 88; RESP 18; TEMP 99.1
[2021-07-21] MEDS: INSULIN ASPART (NovoLOG) 100 UNIT/ML VIAL SQ SCH ×2 (07:43→12:11)
[2021-07-21] MEDS: metFORMIN 500 MG TAB PO SCH ×2 (07:44→12:11)
[2021-07-21] MEDS: MULTIVITAMINS, THERA 1 EACH TAB PO SCH (07:44)
[2021-07-21] MEDS: MAGNESIUM OXIDE 400 MG TAB PO SCH (07:44)
[2021-07-21] MEDS: TAMSULOSIN 0.4 MG CAP.ER.24H PO SCH (07:44)
[2021-07-21] MEDS: lisinopriL 20 MG TAB PO SCH (07:44)
[2021-07-21] MEDS: ASPIRIN 81 MG PO SCH (07:44)
[2021-07-21] MEDS: PIOGLITAZONE 30 MG TAB PO SCH (07:44)
[2021-07-21] MEDS: ONDANSETRON 4 MG/2 ML VIAL IVP PRN (07:45)
--- NOTE | 2021-07-21 09:57 | P.DS ---
Providers Date of admission: 07/20/21 15:11 Expected date of discharge: 07/21/21 Attending physician: Dennis Garcia Consults: 07/19/21 11:44 Consult Physician Routine Consulting Provider: Yvon Cervantes Consult Reason/Comments: post op medical management Do you want consulting provider notified?: Yes 07/20/21 11:39 Consult Physician Routine Consulting Provider: Jonathan Craig Consult Reason/Comments: post op urinary retention Do you want consulting provider notified?: Yes Primary care physician: Link Gerard - Discharge Diagnosis(es) (1) Status post total shoulder arthroplasty Current Visit: Yes Status: Acute (2) Osteoarthritis of right shoulder Current Visit: Yes Status: Acute Priority: Medium Hospital Course: This is a 65-year-old male who has history of severe degenerative arthritis of the right shoulder and presented to discuss surgical options. After discussion and consideration the patient elects to proceed with total shoulder arthroplasty. The pt is seen preoperatively by their family physician and cleared for surgery. The patient is admitted to [facility] on 07/19/2021 for total right shoulder arthroplasty. He is doing well postoperatively. Vital signs and hemoglobin are stable. The pt is able to get up out of bed independently and is ambulating without assistance. Pain is well controlled. Patient is discharged to home on postoperative day #2 in good condition. Please see med rec for accurate list of home medications. Patient Condition at Discharge: Good Plan - Discharge Summary Discharge Rx Participant: Yes New Discharge Prescriptions: New HYDROcodone/APAP 10-325MG [Sentinel 10-325] 1 tab PO Q4HR PRN #42 tab PRN Reason: Pain Docusate [Colace] 100 mg PO BID #60 capsule Doxycycline Hyclate 100 mg PO BID #10 tab No Action amLODIPine [Norvasc] 10 mg PO W/SUPPER Pioglitazone [Actos] 30 mg PO DAILY metFORMIN HCL ER [Glucophage XR] 500 mg PO TID-W/MEALS ALPRAZolam [Xanax] 0.5 mg PO HS Rosuvastatin Calcium [Crestor] 10 mg PO HS hydroCHLOROthiazide [Hydrodiuril] 25 mg PO W/LUNCH Enalapril Maleate [Vasotec] 20 mg PO BID Magnesium Oxide [Mag-Ox] 250 mg PO DAILY Aspirin EC [Ecotrin Low Dose] 81 mg PO QAM Multivitamins, Thera [Multivitamin (formulary)] 1 tab PO DAILY Liraglutide [Victoza 2-Xu] 1.8 mg SQ HS Discharge Medication List ALPRAZolam [Xanax] 0.5 mg PO HS 03/21/20 [History] Pioglitazone [Actos] 30 mg PO DAILY 03/21/20 [History] amLODIPine [Norvasc] 10 mg PO W/SUPPER 03/21/20 [History] metFORMIN HCL ER [Glucophage XR] 500 mg PO TID-W/MEALS 03/21/20 [History] Enalapril Maleate [Vasotec] 20 mg PO BID 06/05/20 [History] Magnesium Oxide [Mag-Ox] 250 mg PO DAILY 06/05/20 [History] Rosuvastatin Calcium [Crestor] 10 mg PO HS 06/05/20 [History] hydroCHLOROthiazide [Hydrodiuril] 25 mg PO W/LUNCH 06/05/20 [History] Aspirin EC [Ecotrin Low Dose] 81 mg PO QAM 09/20/20 [History] Multivitamins, Thera [Multivitamin (formulary)] 1 tab PO DAILY 07/16/21 [History] Liraglutide [Victoza 2-Xu] 1.8 mg SQ HS 07/17/21 [History] Docusate [Colace] 100 mg PO BID #60 capsule 07/20/21 [Rx] Doxycycline Hyclate 100 mg PO BID #10 tab 07/20/21 [Rx] HYDROcodone/APAP 10-325MG [[place] 10-325] 1 tab PO Q4HR PRN #42 tab 07/20/21 [Rx] Follow up Appointment(s)/Referral(s): Dennis Garcia MD [STAFF PHYSICIAN] - 10 Days Activity/Diet/Wound Care/Special Instructions: Keep wound clean and dry Take meds as directed Follow-up with Dr. Garcia in office Non weightbearing right upper extremity May shower in 3 days if no bleeding Maintain sling
[2021-07-21 11:41] LABS: Glucose,Whole Blood 297 mg/dL (75-99)
[2021-07-21] MEDS: hydroCHLOROthiazide 25 MG TAB PO SCH (12:11)
[2021-07-21 22:41] LABS: Anion Gap 13.3 mmol/L (4.00-12.00); Carbon Dioxide 23.7 mmol/L (21.6-31.8); Potassium 3.8 mmol/L (3.5-5.5)
== END 2021-07-21 13:25 | disposition home or self-care (01) ==
LOC: OR 07:41 → 4SSUR 14:21 → OR 07-20 13:47 → 4SSUR 07-20 15:11
PROVIDERS: ADMIT Orthopaedic Surgery Sports Medicine; ATTEND Orthopaedic Surgery Sports Medicine
DX: M19.011 Primary osteoarthritis, right shoulder (principal); M75.121 Complete rotator cuff tear or rupture of right shoulder, not specified as traumatic; N99.89 Other postprocedural complications and disorders of genitourinary system; R33.9 Retention of urine, unspecified; M19.012 Primary osteoarthritis, left shoulder; E11.9 Type 2 diabetes mellitus without complications; I10 Essential (primary) hypertension; E78.5 Hyperlipidemia, unspecified; G47.33 Obstructive sleep apnea (adult) (pediatric); F41.9 Anxiety disorder, unspecified; H91.90 Unspecified hearing loss, unspecified ear; E66.9 Obesity, unspecified; Z68.31 Body mass index [BMI] 31.0-31.9, adult; Z79.84 Long term (current) use of oral hypoglycemic drugs; Z79.82 Long term (current) use of aspirin; Z88.1 Allergy status to other antibiotic agents; Z88.2 Allergy status to sulfonamides; Z88.8 Allergy status to other drugs, medicaments and biological substances; Z97.3 Presence of spectacles and contact lenses; Z95.0 Presence of cardiac pacemaker; Z98.890 Other specified postprocedural states; Z82.49 Family history of ischemic heart disease and other diseases of the circulatory system; Z83.2 Family history of diseases of the blood and blood-forming organs and certain disorders involving the immune mechanism; Z83.3 Family history of diabetes mellitus
CPT/HCPCS: 23472; 94760; 64415; 76942; 80051; 80053; 85025; 88300; 73020; G0378 ×2; C1713; C1776; J2250; J3370; J2710; J2765; J0690 ×2; J2405 ×2; J2001; J3010; J2795; J2370; J0330; J2704; J1170 ×2

== ENCOUNTER 2021-07-23 01:38 | Observation (INO) | payer MEDICARE ==
[2021-07-23] MEDS ORDERED: SODIUM CHLORIDE 0.9% 1,000 ML IV STA (02:05)
[2021-07-23] MEDS ORDERED: MORPHINE SULFATE 4 MG/ML SYRINGE IV STA (02:05)
--- NOTE | 2021-07-23 02:06 | ED ---
SOB HPI - General Chief Complaint: Shortness of Breath Stated Complaint: post op swelling, SOB Time Seen by Provider: 07/23/21 01:51 Source: patient, RN notes reviewed, old records reviewed Mode of arrival: EMS Limitations: no limitations - History of Present Illness Initial Comments: This is a 65-year-old male to the ER for evaluation patient presents for evaluation regards to multiple complaints shortness of breath and abdominal pain with inability to urinate. Pain is not controlled with at home pain medication in his right shoulder the pain is very severe. Patient states shortness with her yesterday and today and he feels like his heart is racing. Patient denies any fevers or any other complaints MD Complaint: shortness of breath, chest pain (Tachycardia), anxiety -: hour(s) Severity: moderate Severity scale (1-10): 4 Quality: aching Consistency: constant Improves With: nothing Worsens With: nothing Known History Of: other (Recent surgery) Context: anxiety, other (Significant pain) Associated Symptoms: cough, sputum production Treatments Prior to Arrival: none - Related Data Home Medications Medication Instructions Recorded Confirmed ALPRAZolam [Xanax] 0.5 mg PO HS 03/21/20 07/19/21 Pioglitazone [Actos] 30 mg PO DAILY 03/21/20 07/19/21 amLODIPine [Norvasc] 10 mg PO W/SUPPER 03/21/20 07/19/21 metFORMIN HCL ER [Glucophage XR] 500 mg PO TID-W/MEALS 03/21/20 07/19/21 Enalapril Maleate [Vasotec] 20 mg PO BID 06/05/20 07/19/21 Magnesium Oxide [Mag-Ox] 250 mg PO DAILY 06/05/20 07/19/21 Rosuvastatin Calcium [Crestor] 10 mg PO HS 06/05/20 07/19/21 hydroCHLOROthiazide [Hydrodiuril] 25 mg PO W/LUNCH 06/05/20 07/19/21 Aspirin EC [Ecotrin Low Dose] 81 mg PO QAM 09/20/20 07/19/21 Multivitamins, Thera [Multivitamin 1 tab PO DAILY 07/16/21 07/19/21 (formulary)] Liraglutide [Victoza 2-Xu] 1.8 mg SQ HS 07/17/21 07/19/21 Previous Rx's Medication Instructions Recorded Docusate [Colace] 100 mg PO BID #60 capsule 07/20/21 Doxycycline Hyclate 100 mg PO BID #10 tab 07/20/21 HYDROcodone/APAP 10-325MG [[place] 1 tab PO Q4HR PRN #42 tab 07/20/21 10-325] Allergies Allergy/AdvReac Type Severity Reaction Status Date / Time hydralazine Allergy "pounding Verified 07/23/21 01:49 heart" Sulfa (Sulfonamide Allergy Rash/Hives Verified 07/23/21 01:49 Antibiotics) sulfamethoxazole Allergy Rash/Hives, Verified 07/23/21 01:49 [From Bactrim] neck swelling trimethoprim [From Bactrim] Allergy Rash/Hives, Verified 07/23/21 01:49 neck swelling Review of Systems ROS Statement: Those systems with pertinent positive or pertinent negative responses have been documented in the HPI. ROS Other: All systems not noted in ROS Statement are negative. Past Medical History Past Medical History: Diabetes Mellitus, Hyperlipidemia, Hypertension, Osteoarthritis (OA) Additional Past Medical History / Comment(s): constipation/loose stool, bone s purs rt shoulder, hx heart murmer, "heart block", 08/2020-"infection in stomach", History of Any Multi-Drug Resistant Organisms: None Reported Past Surgical History: Adenoidectomy, Hernia Repair, Orthopedic Surgery, Pacemaker, Tonsillectomy Additional Past Surgical History / Comment(s): umbilical hernia as , kate inguinal hernia, R. shoudler replacement. Past Anesthesia/Blood Transfusion Reactions: No Reported Reaction Additional Past Anesthesia/Blood Transfusion Reaction / Comment(s): "oxygen levels and heartrate goes down when laying flat on back" Type of Cardiac Device: Permanent Pacemaker Device Placement Date:: 05/2020 Past Psychological History: Anxiety Smoking Status: Never smoker Past Alcohol Use History: Occasional Past Drug Use History: None Reported - Past Family History Father Family Medical History: Deep Vein Thrombosis (DVT) Additional Family Medical History / Comment(s): QUESTIONABLE CAD Mother Family Medical History: No Reported History Additional Family Medical History / Comment(s): myloplastic syndrome Brother(s) Family Medical History: AICD/Pacemaker General Exam Limitations: no limitations General appearance: alert, anxious, in distress Head exam: Present: atraumatic, normocephalic, normal inspection Eye exam: Present: normal appearance, PERRL, EOMI. Absent: scleral icterus, conjunctival injection, periorbital swelling ENT exam: Present: normal exam, mucous membranes moist Neck exam: Present: normal inspection. Absent: tenderness, meningismus, lymphadenopathy Respiratory exam: Present: normal lung sounds bilaterally. Absent: respiratory distress, wheezes, rales, rhonchi, stridor Cardiovascular Exam: Present: normal rhythm, tachycardia, normal heart sounds. Absent: systolic murmur, diastolic murmur, rubs, gallop, clicks GI/Abdominal exam: Present: soft, normal bowel sounds. Absent: distended, tenderness, guarding, rebound, rigid Extremities exam: Present: normal inspection, full ROM, normal capillary refill. Absent: tenderness, pedal edema, joint swelling, calf tenderness Back exam: Present: normal inspection Neurological exam: Present: alert, oriented X3, CN II-XII intact Psychiatric exam: Present: normal affect, normal mood Skin exam: Present: warm, dry, intact, normal color. Absent: rash Course Vital Signs 07/23/21 07/23/21 01:40 03:06 Temperature 98.0 F Pulse Rate 103 H 96 Respiratory 19 18 Rate Blood Pressure 149/75 150/74 O2 Sat by Pulse 95 98 Oximetry - Reevaluation(s) Reevaluation #1: 07/23/21 03:47 Medical record is reviewed Reevaluation #2: 07/23/21 03:47 Age and does have relief of pain with medication and with retention with Silverman placed 07/23/21 03:47 Reevaluation #3: 07/23/21 03:47 Patient states his heart rate is usually not so high Reevaluation #4: 07/23/21 03:47 Spoke with patient regarding findings and results, questions answered Medical Decision Making - Medical Decision Making 65 male with intractable postoperative pain right shoulder pain as well as urinary retention, Silverman is placed with relief of retention, patient be admitted for pain control and observation - Lab Data Result diagrams: 07/23/21 02:27 Lab Results 07/23/21 07/23/21 07/23/21 Range/Units 02:27 02:27 02:27 WBC 5.8 (3.8-10.6) k/uL RBC 3.64 L (4.30-5.90) m/uL Hgb 11.2 L (13.0-17.5) gm/dL Hct 32.3 L (39.0-53.0) % MCV 88.5 (80.0-100.0) fL MCH 30.6 (25.0-35.0) pg MCHC 34.6 (31.0-37.0) g/dL RDW 13.8 (11.5-15.5) % Plt Count 206 (150-450) k/uL MPV 7.5 Neutrophils % 78 % Lymphocytes % 11 % Monocytes % 6 % Eosinophils % 3 % Basophils % 1 % Neutrophils # 4.6 (1.3-7.7) k/uL Lymphocytes # 0.7 L (1.0-4.8) k/uL Monocytes # 0.3 (0-1.0) k/uL Eosinophils # 0.2 (0-0.7) k/uL Basophils # 0.0 (0-0.2) k/uL PT 9.6 (9.0-12.0) sec INR 0.9 (<1.2) APTT 25.1 (22.0-30.0) sec Plasma Lactic Acid Christophe (0.7-2.0) mmol/L Urine Color Light Yellow Urine Appearance Clear (Clear) Urine pH 7.0 (5.0-8.0) Ur Specific [place] 1.007 (1.001-1.035) Urine Protein Negative (Negative) Urine Glucose (UA) 1+ H (Negative) Urine Ketones 1+ H (Negative) Urine Blood Negative (Negative) Urine Nitrite Negative (Negative) Urine Bilirubin Negative (Negative) Urine Urobilinogen <2.0 (<2.0) mg/dL Ur Leukocyte Esterase Negative (Negative) 07/23/21 Range/Units 02:27 WBC (3.8-10.6) k/uL RBC (4.30-5.90) m/uL Hgb (13.0-17.5) gm/dL Hct (39.0-53.0) % MCV (80.0-100.0) fL MCH (25.0-35.0) pg MCHC (31.0-37.0) g/dL RDW (11.5-15.5) % Plt Count (150-450) k/uL MPV Neutrophils % % Lymphocytes % % Monocytes % % Eosinophils % % Basophils % % Neutrophils # (1.3-7.7) k/uL Lymphocytes # (1.0-4.8) k/uL Monocytes # (0-1.0) k/uL Eosinophils # (0-0.7) k/uL Basophils # (0-0.2) k/uL PT (9.0-12.0) sec INR (<1.2) APTT (22.0-30.0) sec Plasma Lactic Acid Christophe 1.5 (0.7-2.0) mmol/L Urine Color Urine Appearance (Clear) Urine pH (5.0-8.0) Ur Specific [place] (1.001-1.035) Urine Protein (Negative) Urine Glucose (UA) (Negative) Urine Ketones (Negative) Urine Blood (Negative) Urine Nitrite (Negative) Urine Bilirubin (Negative) Urine Urobilinogen (<2.0) mg/dL Ur Leukocyte Esterase (Negative) - EKG Data -: EKG Interpreted by Me (EKG is sinus tachycardia 102 CT 126 QRS 194 QTC 570) - Radiology Data Radiology results: report reviewed (Chest x-rays negative for acute disease), image reviewed Disposition Clinical Impression: Status post total shoulder arthroplasty, Postoperative pain, Urinary retention, Atelectasis Disposition: ADMITTED IP TO THIS [facility] Condition: Good Is patient prescribed a controlled substance at d/c from ED?: No Referrals: Link Gerard DO [Primary Care Provider] - 1-2 days
[2021-07-23 02:51] LABS: Basophils % (A) 1 %; Eosinophils # (A) 0.2 k/uL (0-0.7); Eosinophils % (A) 3 %; HCT 32.3 % (39.0-53.0); HGB 11.2 gm/dL (13.0-17.5); Lymphocytes # (A) 0.7 k/uL (1.0-4.8); Lymphocytes % (A) 11 %; MCH 30.6 pg (25.0-35.0); MCHC 34.6 g/dL (31.0-37.0); MCV 88.5 fL (80.0-100.0); Mean Platelet Volume 7.5; Monocytes # (A) 0.3 k/uL (0-1.0); Monocytes % (A) 6 %; Neutrophils # (A) 4.6 k/uL (1.3-7.7); Neutrophils % (A) 78 %; Platelet Count 206 k/uL (150-450); RBC 3.64 m/uL (4.30-5.90); RDW 13.8 % (11.5-15.5); WBC 5.8 k/uL (3.8-10.6)
[2021-07-23] MEDS ORDERED: ONDANSETRON 4 MG/2 ML VIAL IVP STA (02:52)
[2021-07-23 03:03] LABS: INR 0.9 (<1.2); Partial Thromboplastin Time 25.1 sec (22.0-30.0); Prothrombin Time 9.6 sec (9.0-12.0)
[2021-07-23 03:29] LABS: Appearance,Urine Clear (Clear); Bilirubin,Urine Negative (Negative); Blood,Urine Negative (Negative); Color,Urine Light Yellow; Glucose,Urine (UA) 1+ (Negative); Ketones,Urine 1+ (Negative); Leukocyte Esterase,Urine Negative (Negative); Nitrite,Urine Negative (Negative); Protein,Urine Negative (Negative); Specific Gravity,Urine 1.007 (1.001-1.035); Urobilinogen,Urine <2.0 mg/dL (<2.0)
[2021-07-23 03:30] LABS: ALT 17 U/L (4-49); African American GFR (CKD) >90 (>60 ml/min/1.73 sqM); Albumin 3.5 g/dL (3.5-5.0); Anion Gap 9 mmol/L; Blood Urea Nitrogen 12 mg/dL (9-20); Carbon Dioxide 25 mmol/L (22-30); Chloride 91 mmol/L (98-107); Glucose 204 mg/dL (74-99); Non-African American GFR(CKD) >90 (>60 ml/min/1.73 sqM); Sodium 125 mmol/L (137-145); Total Bilirubin 0.6 mg/dL (0.2-1.3)
[2021-07-23] MEDS ORDERED: ONDANSETRON 4 MG/2 ML VIAL IVP PRN (03:42)
[2021-07-23] MEDS ORDERED: NALOXONE 0.4 MG/ML 1 ML VIAL IV PRN (03:42)
[2021-07-23] MEDS ORDERED: MORPHINE SULFATE 4 MG/ML SYRINGE IV PRN (03:42)
--- NOTE | 2021-07-23 03:48 | XR ---
EXAMINATION TYPE: XR chest 1V portable DATE OF EXAM: 07/23/2021 COMPARISON: 06/09/2020 HISTORY: Short of breath TECHNIQUE: Single view FINDINGS: There is some atelectasis and linear infiltrate right lung base. There is left axillary pac emaker. There is no heart failure. Left lung is fairly clear. There is right shoulder prosthesis. The re are chest leads. IMPRESSION: There is increasing infiltrate and atelectasis right lower lobe compared to old exam. No heart failure.
[2021-07-23] MEDS ORDERED: HYDROmorphone 1 MG/ML 1 ML SYRINGE IVP STA (04:01)
[2021-07-23] MEDS ORDERED: HYDROmorphone 1 MG/ML 1 ML SYRINGE IVP PRN (04:01)
[2021-07-23 04:08] LABS: AST 30 U/L (17-59); Alkaline Phosphatase 67 U/L (38-126); Creatine Kinase 288 U/L (55-170); Magnesium 1.5 mg/dL (1.6-2.3); Phosphorus 3.4 mg/dL (2.5-4.5); Potassium 3.5 mmol/L (3.5-5.1)
[2021-07-23] MEDS: SODIUM CHLORIDE 0.9% 1,000 ML IV SCH (04:08)
[2021-07-23 06:59] VITALS: RESP 16
[2021-07-23] MEDS ORDERED: HYDROcodone/APAP 10-325MG 1 EACH TAB PO PRN (10:19)
[2021-07-23] MEDS: HYDROcodone/APAP 10-325MG 1 EACH TAB PO PRN ×2 (10:41→21:06)
[2021-07-23] MEDS ORDERED: HYDROmorphone 0.5 MG/0.5 ML SYRINGE IVP PRN ×2 (10:45)
[2021-07-23] MEDS ORDERED: TEMAZEPAM 15 MG CAP PO PRN (10:45)
[2021-07-23] MEDS ORDERED: SENNOSIDES-DOCUSATE SODIUM 1 EACH TAB PO PRN (10:45)
[2021-07-23] MEDS ORDERED: diphenhydrAMINE 25 MG CAP PO PRN (10:45)
[2021-07-23] MEDS ORDERED: HYDROmorphone 0.2 MG/1 ML SYRINGE IVP PRN (10:45)
--- NOTE | 2021-07-23 11:31 | P.CNOR ---
History of Present Illness - [facility] Consult date: 07/23/21 Consult reason: joint pain History of present illness: Patient is pleasant 65 yo male seen at bedside this morning. He is s/p right total shoulder arthroplasty on 07/19/21. He was discharged on 07/21/21. He had issues with urinary retention, difficulty with pain control and chest complaints late last evening and presented to the ED where he was admitted to observation. He is denying fever or chills this morning. He is denying chest pain currently. Silverman was placed and he states urine output was 3000cc. He has pain at right shoulder as expected. He has no other current complaints. Review of Systems All systems: negative Past Medical History Past Medical History: Diabetes Mellitus, Hyperlipidemia, Hypertension, Osteoarthritis (OA) Additional Past Medical History / Comment(s): constipation/loose stool, bone spurs rt shoulder, hx heart murmer, "heart block", 08/2020-"infection in stomach", History of Any Multi-Drug Resistant Organisms: None Reported Past Surgical History: Adenoidectomy, Hernia Repair, Orthopedic Surgery, Pacemaker, Tonsillectomy Additional Past Surgical History / Comment(s): umbilical hernia as infant, kate inguinal hernia, R. shoudler replacement. Past Anesthesia/Blood Transfusion Reactions: No Reported Reaction Additional Past Anesthesia/Blood Transfusion Reaction / Comm: "oxygen levels and heartrate goes down when laying flat on back" Type of Cardiac Device: Permanent Pacemaker Device Placement Date:: 05/2020 Past Psychological History: Anxiety Smoking Status: Never smoker Past Alcohol Use History: Occasional Past Drug Use History: None Reported - Past Family History Father Family Medical History: Deep Vein Thrombosis (DVT) Additional Family Medical History / Comment(s): QUESTIONABLE CAD Mother Family Medical History: No Reported History Additional Family Medical History / Comment(s): myloplastic syndrome Brother(s) Family Medical History: AICD/Pacemaker Medications and Allergies Home Medications Medication Instructions Recorded Confirmed Type ALPRAZolam [Xanax] 0.5 mg PO HS 03/21/20 07/23/21 History Pioglitazone [Actos] 30 mg PO DAILY 03/21/20 07/23/21 History amLODIPine [Norvasc] 10 mg PO W/SUPPER 03/21/20 07/23/21 History metFORMIN HCL ER [Glucophage XR] 500 mg PO TID-W/MEALS 03/21/20 07/23/21 History Enalapril Maleate [Vasotec] 20 mg PO BID 06/05/20 07/23/21 History Magnesium Oxide [Mag-Ox] 250 mg PO DAILY 06/05/20 07/23/21 History Rosuvastatin Calcium [Crestor] 10 mg PO HS 06/05/20 07/23/21 History hydroCHLOROthiazide [Hydrodiuril] 25 mg PO W/LUNCH 06/05/20 07/23/21 History Aspirin EC [Ecotrin Low Dose] 81 mg PO DAILY 09/20/20 07/23/21 History Multivitamins, Thera [Multivitamin 1 tab PO DAILY 07/16/21 07/23/21 History (formulary)] Liraglutide [Victoza 2-Xu] 1.8 mg SQ HS 07/17/21 07/23/21 History Docusate [Colace] 100 mg PO BID #60 capsule 07/20/21 07/23/21 Rx Doxycycline Hyclate 100 mg PO BID #10 tab 07/20/21 07/23/21 Rx HYDROcodone/APAP 10-325MG [[place] 1 tab PO Q4HR PRN #42 tab 07/20/21 07/23/21 Rx 10-325] Tamsulosin [Flomax] 0.4 mg PO DAILY 07/23/21 07/23/21 History Allergies Allergy/AdvReac Type Severity Reaction Status Date / Time hydralazine Allergy "pounding Verified 07/23/21 07:06 heart" Sulfa (Sulfonamide Allergy Rash/Hives Verified 07/23/21 07:06 Antibiotics) sulfamethoxazole Allergy Rash/Hives, Verified 07/23/21 07:06 [From Bactrim] neck swelling trimethoprim [From Bactrim] Allergy Rash/Hives, Verified 07/23/21 07:06 neck swelling Physical Examination Inspection of right shoulder shows benign surgical wound. Glue is intact. No dehiscence or erythema. No bleeding or drainage. ROM of shoulder not tested. He has painless ROM of the elbow, wrist and hand. NVI with motor and sensation throughout. 2+ radial pulse and less than 2 sec cap refill present. Results - Labs Labs: Abnormal Lab Results - Last 24 Hours (Table) 07/23/21 07/23/21 07/23/21 Range/Units 02:27 02:27 02:27 RBC 3.64 L (4.30-5.90) m/uL Hgb 11.2 L (13.0-17.5) gm/dL Hct 32.3 L (39.0-53.0) % Lymphocytes # 0.7 L (1.0-4.8) k/uL Sodium 125 L (137-145) mmol/L Chloride 91 L (98-107) mmol/L Glucose 204 H (74-99) mg/dL Magnesium 1.5 L (1.6-2.3) mg/dL Creatine Kinase 288 H (55-170) U/L Total Protein 6.0 L (6.3-8.2) g/dL Urine Glucose (UA) 1+ H (Negative) Urine Ketones 1+ H (Negative) H & H 07/23/21 Range/Units 02:27 Hgb 11.2 L (13.0-17.5) gm/dL Hct 32.3 L (39.0-53.0) % Coagulation 07/23/21 Range/Units 02:27 INR 0.9 (<1.2) Result Diagrams: 07/23/21 02:27 07/23/21 02:27 Assessment and Plan (1) Postoperative pain Narrative/Plan: He will continue with pain management with preference towards oral medication. Continue wound care. Flomax added and Silverman in place. Continue antibiotics. Continue medical management, DVT prophylaxis. Will follow closely. Current Visit: Yes Status: Acute Priority: Medium Code(s): G89.18 - OTHER ACUTE POSTPROCEDURAL PAIN SNOMED Code(s): 482415644 Time with Patient: Less than 30
[2021-07-23 13:32] LABS: African American GFR (CKD) >90 (>60 ml/min/1.73 sqM); Anion Gap 8 mmol/L; Blood Urea Nitrogen 10 mg/dL (9-20); Calcium 8.9 mg/dL (8.4-10.2); Carbon Dioxide 28 mmol/L (22-30); Chloride 96 mmol/L (98-107); Glucose 241 mg/dL (74-99); Non-African American GFR(CKD) >90 (>60 ml/min/1.73 sqM); Potassium 3.8 mmol/L (3.5-5.1); Sodium 132 mmol/L (137-145)
[2021-07-23] MEDS: MAGNESIUM SULFATE-D5W PMX 1 GM in DEXTROSE/WATER 1 100ML.BAG IVPB SCH ×2 (14:30→15:57)
[2021-07-23 16:57] LABS: Glucose,Whole Blood 242 mg/dL (75-99)
[2021-07-23] MEDS: INSULIN ASPART (NovoLOG) 100 UNIT/ML VIAL SQ SCH ×2 (17:00→21:07)
[2021-07-23] MEDS ORDERED: amLODIPine 10 MG TAB PO SCH (17:30)
[2021-07-23 21:26] LABS: Glucose,Whole Blood 197 mg/dL (75-99)
[2021-07-23] MEDS: DOXYCYCLINE 100 MG CAP PO SCH (22:42)
[2021-07-24] MEDS: HYDROcodone/APAP 10-325MG 1 EACH TAB PO PRN ×2 (01:37→10:53)
--- NOTE | 2021-07-24 01:58 | P.HPIM ---
History of Present Illness H&P Date: 07/23/21 Chief Complaint: Lower abdominal pain Patient is a 65-year-old male with known history of hypertension, hyperlipidemia, diabetes type 2, history of heart block, permanent pacemaker placement, anxiety presents to ER due to complaints of lower abdominal pain and was found to have urinary retention. Patient underwent right shoulder arthroplasty on 07/19/2021. Patient was discharged on 07/21/2021. He has been taking York for pain control. Silverman catheter was placed with 3000 cc urine output. Right shoulder pain is fairly controlled. Denied any complaints of dysuria or h ematuria. No nausea vomiting or abdominal pain or diarrhea. No chest pain or shortness of breath. WBC 5.8 hemoglobin 9.1 platelets 206 Sodium 124 potassium 3.5 chloride 91 BUN 12 and creatinine 0.78 CK 288 Urinalysis is negative for infection Chest x-ray showed there is increasing infiltrate and atelectasis right lung lower lobe compatible exam. No heart failure. Review of Systems Constitutional: Patient denies any fever or chills . No generalized weakness or weight loss. Abdomen: Patient denied nausea vomiting and diarrhea. Lower abdominal pain. Cardiovascular: Patient denies any chest pain or short of breath no palpitations. Respiratory: patient denied any cough or sputum production. No shortness of breath Neurologic: Patient denied any numbness or tingling headache. Musculoskeletal: Patient denies any complaints of joint swelling or deformity. Skin: Negative Psychiatric: Negative Endocrine: No heat or cold intolerance. No recent weight gain. Genitourinary: No dysuria or hematuria. All other 14 point ROS negative except the above Past Medical History Past Medical History: Diabetes Mellitus, Hypertension, Osteoarthritis (OA) Additional Past Medical History / Comment(s): constipation/loose stool, bone spurs rt shoulder, hx heart [place], "heart block", 08/2020-"infection in [facility]", History of Any Multi-Drug Resistant Organisms: None Reported Past Surgical History: Adenoidectomy, Hernia Repair, Orthopedic Surgery, Pacemaker, Tonsillectomy Additional Past Surgical History / Comment(s): umbilical hernia as infant, kate inguinal hernia, R. shoudler replacement. Past Anesthesia/Blood Transfusion Reactions: No Reported Reaction Additional Past Anesthesia/Blood Transfusion Reaction / Comment(s): . Type of Cardiac Device: Permanent Pacemaker Device Placement Date:: 05/2020 Past Psychological History: Anxiety Smoking Status: Never smoker Past Alcohol Use History: Occasional Past Drug Use History: None Reported - Past Family History Father Family Medical History: Deep Vein Thrombosis (DVT) Additional Family Medical History / Comment(s): QUESTIONABLE CAD Mother Family Medical History: No Reported History Additional Family Medical History / Comment(s): myloplastic syndrome Brother(s) Family Medical History: AICD/Pacemaker Medications and Allergies Home Medications Medication Instructions Recorded Confirmed Type ALPRAZolam [Xanax] 0.5 mg PO HS 03/21/20 07/23/21 History Pioglitazone [Actos] 30 mg PO DAILY 03/21/20 07/23/21 History amLODIPine [Norvasc] 10 mg PO W/SUPPER 03/21/20 07/23/21 History metFORMIN HCL ER [Glucophage XR] 500 mg PO TID-W/MEALS 03/21/20 07/23/21 History Enalapril Maleate [Vasotec] 20 mg PO BID 06/05/20 07/23/21 History Magnesium Oxide [Mag-Ox] 250 mg PO DAILY 06/05/20 07/23/21 History Rosuvastatin Calcium [Crestor] 10 mg PO HS 06/05/20 07/23/21 History hydroCHLOROthiazide [Hydrodiuril] 25 mg PO W/LUNCH 06/05/20 07/23/21 History Aspirin EC [Ecotrin Low Dose] 81 mg PO DAILY 09/20/20 07/23/21 History Multivitamins, Thera [Multivitamin 1 tab PO DAILY 07/16/21 07/23/21 History (formulary)] Liraglutide [Victoza 2-Xu] 1.8 mg SQ HS 07/17/21 07/23/21 History Docusate [Colace] 100 mg PO BID #60 capsule 07/20/21 07/23/21 Rx Doxycycline Hyclate 100 mg PO BID #10 tab 07/20/21 07/23/21 Rx HYDROcodone/APAP 10-325MG [[place] 1 tab PO Q4HR PRN #42 tab 07/20/21 07/23/21 Rx 10-325] Tamsulosin [Flomax] 0.4 mg PO DAILY 07/23/21 07/23/21 History Allergies Allergy/AdvReac Type Severity Reaction Status Date / Time hydralazine Allergy "pounding Verified 07/23/21 07:06 heart" Sulfa (Sulfonamide Allergy Rash/Hives Verified 07/23/21 07:06 Antibiotics) sulfamethoxazole Allergy Rash/Hives, Verified 07/23/21 07:06 [From Bactrim] neck swelling trimethoprim [From Bactrim] Allergy Rash/Hives, Verified 07/23/21 07:06 neck swelling Physical Exam Vitals: Vital Signs Temp Pulse Resp BP Pulse Ox 07/23/21 06:53 97.4 F L 92 16 134/76 95 07/23/21 03:06 96 18 150/74 98 07/23/21 01:40 98.0 F 103 H 19 149/75 95 Intake and Output 07/22/21 07/23/21 07/23/21 22:59 06:59 14:59 Output Total 1100 Balance -1100 Output: Urine 1100 Other: Voiding Method Indwelling Catheter Weight 101.151 kg 101.151 kg PHYSICAL EXAMINATION: Patient is lying in the bed comfortably, no acute distress, awake alert and oriented.. HEENT: Normocephalic. Neck is supple. Pupils reactive. Nostrils clear. Oral cavity is moist. Ears reveal no drainage. Neck reveals no JVD, carotid bruits, or thyromegaly. CHEST EXAMINATION: Trachea is central. Symmetrical expansion. Lung pereira clear to auscultation and percussion. CARDIAC: Normal S1, S2 with no gallops. No murmurs ABDOMEN: Soft. Bowel sounds normal. No organomegaly. No abdominal bruits. Extremities: reveal no edema. No clubbing or cyanosis Neurologically awake, alert, oriented x3 with well-coordinated movements. No focal deficits noted Skin: No rash or skin lesions. Psychiatric: Coperative. Nonsuicidal Musculoskeletal: No joint swelling or deformity. Right shoulder surgical site is packed. Results CBC & Chem 7: 07/23/21 02:27 07/23/21 12:56 Labs: Abnormal Lab Results - Last 24 Hours (Table) 07/23/21 07/23/21 07/23/21 Range/Units 02:27 02:27 02:27 RBC 3.64 L (4.30-5.90) m/uL Hgb 11.2 L (13.0-17.5) gm/dL Hct 32.3 L (39.0-53.0) % Lymphocytes # 0.7 L (1.0-4.8) k/uL Sodium 125 L (137-145) mmol/L Chloride 91 L (98-107) mmol/L Glucose 204 H (74-99) mg/dL Magnesium 1.5 L (1.6-2.3) mg/dL Creatine Kinase 288 H (55-170) U/L Total Protein 6.0 L (6.3-8.2) g/dL Urine Glucose (UA) 1+ H (Negative) Urine Ketones 1+ H (Negative) Thrombosis Risk Factor Assmnt - DVT/VTE Prophylaxis DVT/VTE Prophylaxis: Pharmacologic Prophylaxis ordered Assessment and Plan Assessment: Acute urinary retention Recent right shoulder arthroplasty on 07/19/2021 Hyponatremia Right lower lobe atelectasis. Unlikely pneumonia. Hypertension Diabetes type 2 Osteoarthritis Hyperlipidemia History of permanent pacemaker placement due to heart block with Anxiety DVT prophylaxis Plan: Patient is currently placed on Silverman catheter. Continue with Flomax and recommend follow-up with urology as outpatient for trial void. Continue with pain management with morphine and York. IV hydration and follow-up closely.
[2021-07-24] MEDS: SODIUM CHLORIDE 0.9% 1,000 ML IV SCH (04:00)
[2021-07-24 07:09] LABS: Glucose,Whole Blood 162 mg/dL (75-99)
[2021-07-24 08:00] VITALS: BP 154/69; PULSE 79; TEMP 98.2
[2021-07-24] MEDS ORDERED: TAMSULOSIN 0.4 MG CAP.ER.24H PO SCH (08:30)
[2021-07-24] MEDS: DOXYCYCLINE 100 MG CAP PO SCH (08:44)
[2021-07-24] MEDS: INSULIN ASPART (NovoLOG) 100 UNIT/ML VIAL SQ SCH (08:44)
[2021-07-24 09:30] LABS: Basophils # (A) 0.03 X 10*3/uL (0.00-0.10); Basophils % (A) 0.8 %; Eosinophils # (A) 0.15 X 10*3/uL (0.04-0.35); Eosinophils % (A) 3.9 %; HCT 30.1 % (39.6-50.0); HGB 9.8 g/dL (13.0-17.0); Lymphocytes # (A) 0.86 X 10*3/uL (0.90-5.00); Lymphocytes % (A) 22.5 %; MCH 29.7 pg (27.0-32.0); MCHC 32.6 g/dL (32.0-37.0); MCV 91.2 fL (80.0-97.0); Mean Platelet Volume 9.8 fL (9.5-12.2); Monocytes # (A) 0.49 X 10*3/uL (0.20-1.00); Monocytes % (A) 12.8 %; Neutrophils # (A) 2.29 X 10*3/uL (1.80-7.70); Platelet Count 188 X 10*3/uL (140-440); RDW 13.9 % (11.5-14.5); WBC 3.82 X 10*3/uL (4.50-10.00)
[2021-07-24 10:13] LABS: African American GFR (CKD) 108.6 (60.0-200.0); Anion Gap 8.9 mmol/L (4.00-12.00); BUN/Creat Ratio 13.75 Ratio (12.00-20.00); Calcium 8.1 mg/dL (8.7-10.3); Carbon Dioxide 28.1 mmol/L (21.6-31.8); Non-African American GFR(CKD) 93.7 (60.0-200.0); Potassium 3.8 mmol/L (3.5-5.5)
--- NOTE | 2021-07-24 11:56 | P.PN ---
Subjective Progress Note Date: 07/24/21 Principal diagnosis: S/P Right TSA Patient is pleasant 65-year-old male seen at bedside this morning. He is status post right total shoulder arthroplasty performed on 07/19/2021. He was ready admitted yesterday, 07/23/2001 after having urinary retention, increased pain and abdominal/chest complaints. He was found to have 3000 mL of urinary retention. A Silverman was placed. He is improved overall this morning with pain and has no other complaints. He currently denies fever, chills, chest pain, shortness of breath, nausea, vomiting, dizziness, headaches, slurred speech or other. Objective - Vital Signs Vital signs: Vital Signs Temp 98.2 F 07/24/21 07:59 Pulse 79 07/24/21 07:59 Resp 16 07/24/21 07:59 BP 154/69 07/24/21 07:59 Pulse Ox 94 L 07/24/21 07:59 Intake & Output 07/23/21 07/24/21 07/24/21 18:59 06:59 18:59 Output Total 1100 3400 Balance -1100 -3400 Weight 101.151 kg Output: Urine 1100 3400 Other: Voiding Method Indwelling Catheter Indwelling Catheter Indwelling Catheter # Voids 2 # Bowel Movements 0 - Exam General he is an NAD, mood and affect appropriate, AO 5 Inspection of the right shoulder and upper extremity shows benign surgical wound and is intact. There is no evidence of bleeding or drainage. There is no dehiscence or erythema. Neurovascular status of the right upper extremity is intact with motor and sensation throughout. There Is 2+ radial pulse and less than 2 second capillary refill. - Constitutional General appearance: Present: no acute distress - Labs CBC & Chem 7: 07/24/21 06:35 07/24/21 06:35 Labs: Abnormal Lab Results - Last 24 Hours (Table) 07/23/21 07/23/21 07/23/21 Range/Units 12:56 16:50 21:25 WBC (4.50-10.00) X 10*3/uL RBC (4.40-5.60) X 10*6/uL Hgb (13.0-17.0) g/dL Hct (39.6-50.0) % Lymphocytes # (0.90-5.00) X 10*3/uL Sodium 132 L (137-145) mmol/L Chloride 96 L (98-107) mmol/L Glucose 241 H (74-99) mg/dL POC Glucose (mg/dL) 242 H 197 H (75-99) mg/dL Calcium (8.7-10.3) mg/dL 07/24/21 07/24/21 07/24/21 Range/Units 06:35 06:35 07:08 WBC 3.82 L (4.50-10.00) X 10*3/uL RBC 3.30 L (4.40-5.60) X 10*6/uL Hgb 9.8 L (13.0-17.0) g/dL Hct 30.1 L (39.6-50.0) % Lymphocytes # 0.86 L (0.90-5.00) X 10*3/uL Sodium (137-145) mmol/L Chloride (98-107) mmol/L Glucose 180 H (74-99) mg/dL POC Glucose (mg/dL) 162 H (75-99) mg/dL Calcium 8.1 L (8.7-10.3) mg/dL Assessment and Plan (1) Postoperative pain Narrative/Plan: He may be discharged to home from an orthopedic standpoint. His wound is benign, pain is controlled with oral pain medication, his vital signs are stable and has no new complaints. He has a Silverman in place and is instructed follow-up with urology as an outpatient. I again advised him on medications and proper activities as well as restrictions. He will follow up as scheduled with us as an outpatient. Current Visit: Yes Status: Acute Priority: Medium Code(s): G89.18 - OTHER ACUTE POSTPROCEDURAL PAIN SNOMED Code(s): 303988017 Time with Patient: Less than 30
[2021-07-24 12:09] LABS: Glucose,Whole Blood 307 mg/dL (75-99)
== END 2021-07-24 13:10 | disposition home or self-care (01) ==
LOC: EC 01:38 → 1SOBS 03:42 → 6NMEDSUR 18:11
PROVIDERS: ADMIT Hospitalist; ATTEND Hospitalist
DX: R33.9 Retention of urine, unspecified (principal); R10.30 Lower abdominal pain, unspecified; M25.511 Pain in right shoulder; G89.18 Other acute postprocedural pain; Z96.611 Presence of right artificial shoulder joint; E87.1 Hypo-osmolality and hyponatremia; J98.11 Atelectasis; I10 Essential (primary) hypertension; E11.9 Type 2 diabetes mellitus without complications; E78.5 Hyperlipidemia, unspecified; M19.90 Unspecified osteoarthritis, unspecified site; Z79.82 Long term (current) use of aspirin; Z79.84 Long term (current) use of oral hypoglycemic drugs; Z79.899 Other long term (current) drug therapy; Z95.0 Presence of cardiac pacemaker
CPT/HCPCS: 99285; 96361 ×2; 96376; 96365; 96366; 96375; 36415; 94760; 93005; 83880; 80053; 80048 ×2; 82550; 83605; 83735; 84100; 84484; 85025 ×2; 85610; 85730; 81003; 71045; G0378 ×3; J2270; J2405; J1170; J3475

== ENCOUNTER 2021-07-24 18:54 | Emergency (ER) | payer MEDICARE ==
[2021-07-24 20:36] VITALS: TEMP 98.2
--- NOTE | 2021-07-24 21:14 | XR ---
EXAMINATION TYPE: XR KUB DATE OF EXAM: 07/24/2021 9:02 PM CLINICAL HISTORY: Constipation TECHNIQUE: Upright images of the abdomen and pelvis were obtained COMPARISON: None. FINDINGS: Nonspecific bowel gas pattern. No significantly increased colonic fecal debris. There is no visceromegaly, pneumoperitoneum, or abnormal calcification appreciated. The lung bases are clear. Th e osseous structures demonstrate significant degenerative spurring of the lumbar spine. IMPRESSION: Nonspecific bowel gas pattern. No significantly increased colonic fecal debris.
[2021-07-24] MEDS ORDERED: MAGNESIUM CITRATE 296 ML BOTTLE PO ONE (22:08)
[2021-07-24] MEDS ORDERED: polyethylene glycoL 3350 17 GM POWD.PACK PO STA (22:08)
[2021-07-24] MEDS ORDERED: GLYCERIN ADULT SUPPOSITORY 1 EACH RECTAL STA (22:08)
--- NOTE | 2021-07-24 22:10 | ED ---
Abdominal Pain HPI - General Chief Complaint: Abdominal Pain Stated Complaint: constipation Time Seen by Provider: 07/24/21 21:28 Source: patient Mode of arrival: wheelchair Limitations: no limitations - Related Data Home Medications Medication Instructions Recorded Confirmed ALPRAZolam [Xanax] 0.5 mg PO HS 03/21/20 07/23/21 Pioglitazone [Actos] 30 mg PO DAILY 03/21/20 07/23/21 amLODIPine [Norvasc] 10 mg PO W/SUPPER 03/21/20 07/23/21 metFORMIN HCL ER [Glucophage XR] 500 mg PO TID-W/MEALS 03/21/20 07/23/21 Enalapril Maleate [Vasotec] 20 mg PO BID 06/05/20 07/23/21 Magnesium Oxide [Mag-Ox] 250 mg PO DAILY 06/05/20 07/23/21 Rosuvastatin Calcium [Crestor] 10 mg PO HS 06/05/20 07/23/21 hydroCHLOROthiazide [Hydrodiuril] 25 mg PO W/LUNCH 06/05/20 07/23/21 Aspirin EC [Ecotrin Low Dose] 81 mg PO DAILY 09/20/20 07/23/21 Multivitamins, Thera [Multivitamin 1 tab PO DAILY 07/16/21 07/23/21 (formulary)] Liraglutide [Victoza 2-Xu] 1.8 mg SQ HS 07/17/21 07/23/21 Tamsulosin [Flomax] 0.4 mg PO DAILY 07/23/21 07/23/21 Previous Rx's Medication Instructions Recorded Docusate [Colace] 100 mg PO BID #60 capsule 07/20/21 Doxycycline Hyclate 100 mg PO BID #10 tab 07/20/21 HYDROcodone/APAP 10-325MG [[place] 1 tab PO Q4HR PRN #42 tab 07/20/21 10-325] Allergies Allergy/AdvReac Type Severity Reaction Status Date / Time hydralazine Allergy "pounding Verified 07/23/21 07:06 heart" Sulfa (Sulfonamide Allergy Rash/Hives Verified 07/23/21 07:06 Antibiotics) sulfamethoxazole Allergy Rash/Hives, Verified 07/23/21 07:06 [From Bactrim] neck swelling trimethoprim [From Bactrim] Allergy Rash/Hives, Verified 07/23/21 07:06 neck swelling Review of Systems ROS Statement: Those systems with pertinent positive or pertinent negative responses have been documented in the HPI. ROS Other: All systems not noted in ROS Statement are negative. Past Medical History Past Medical History: Diabetes Mellitus, Hypertension, Osteoarthritis (OA) Additional Past Medical History / Comment(s): constipation/loose stool, bone spurs rt shoulder, hx heart [place], "heart block", 08/2020-"infection in stomach", History of Any Multi-Drug Resistant Organisms: None Reported Past Surgical History: Adenoidectomy, Hernia Repair, Orthopedic Surgery, Pacemaker, Tonsillectomy Additional Past Surgical History / Comment(s): umbilical hernia as , kate inguinal hernia, R. shoudler replacement. Past Anesthesia/Blood Transfusion Reactions: No Reported Reaction Additional Past Anesthesia/Blood Transfusion Reaction / Comment(s): . Type of Cardiac Device: Permanent Pacemaker Device Placement Date:: 05/2020 Past Psychological History: Anxiety Smoking Status: Never smoker Past Alcohol Use History: Occasional Past Drug Use History: None Reported - Past Family History Father Family Medical History: Deep Vein Thrombosis (DVT) Additional Family Medical History / Comment(s): QUESTIONABLE CAD Mother Family Medical History: No Reported History Additional Family Medical History / Comment(s): myloplastic syndrome Brother(s) Family Medical History: AICD/Pacemaker General Exam Limitations: no limitations Course Vital Signs 07/24/21 20:29 Temperature 98.2 F Pulse Rate 102 H Respiratory 18 Rate Blood Pressure 156/81 O2 Sat by Pulse 97 Oximetry Disposition Clinical Impression: Constipation, Abdominal pain Disposition: HOME SELF-CARE Condition: Good Instructions (If sedation given, give patient instructions): Constipation (ED) Is patient prescribed a controlled substance at d/c from ED?: No Referrals: Link Gerard DO [Primary Care Provider] - 1-2 days
[2021-07-24 23:19] VITALS: BP 146/76; PULSE 96; RESP 16
== END 2021-07-24 23:19 | disposition home or self-care (01) ==
LOC: EC 18:54
DX: K59.00 Constipation, unspecified (principal); E11.9 Type 2 diabetes mellitus without complications; I10 Essential (primary) hypertension; M19.90 Unspecified osteoarthritis, unspecified site; F41.9 Anxiety disorder, unspecified; Z95.0 Presence of cardiac pacemaker; Z79.84 Long term (current) use of oral hypoglycemic drugs; Z79.899 Other long term (current) drug therapy
CPT/HCPCS: 74018; 99284

== ENCOUNTER 2021-07-28 02:00 | Inpatient (IN) | payer MEDICARE ==
[2021-07-28 02:56] LABS: Basophils # (A) 0.1 k/uL (0-0.2); Basophils % (A) 1 %; Eosinophils # (A) 0.1 k/uL (0-0.7); Eosinophils % (A) 1 %; HCT 32.6 % (39.0-53.0); HGB 11.4 gm/dL (13.0-17.5); Lymphocytes # (A) 0.6 k/uL (1.0-4.8); Lymphocytes % (A) 12 %; MCHC 35.1 g/dL (31.0-37.0); MCV 88.2 fL (80.0-100.0); Mean Platelet Volume 6.7; Monocytes # (A) 0.2 k/uL (0-1.0); Monocytes % (A) 4 %; Neutrophils # (A) 4.3 k/uL (1.3-7.7); Neutrophils % (A) 81 %; Platelet Count 338 k/uL (150-450); RBC 3.69 m/uL (4.30-5.90); WBC 5.3 k/uL (3.8-10.6)
--- NOTE | 2021-07-28 03:02 | XR ---
EXAMINATION TYPE: XR chest 2V DATE OF EXAM: 07/28/2021 COMPARISON: 07/23/2021 HISTORY: Short of breath TECHNIQUE: FINDINGS: Heart and mediastinum are normal. Lungs are clear of consolidation. There is right shoulder prosthesis. There is left axillary pacemaker. Diaphragm is normal. Bony thorax is intact. IMPRESSION: Normal chest. There is clearing of the atelectasis at the lung bases compared to old exam .
[2021-07-28 03:09] LABS: ALT 25 U/L (4-49); AST 25 U/L (17-59); African American GFR (CKD) >90 (>60 ml/min/1.73 sqM); Albumin 3.8 g/dL (3.5-5.0); Alkaline Phosphatase 75 U/L (38-126); Anion Gap 12 mmol/L; Blood Urea Nitrogen 12 mg/dL (9-20); Calcium 9.5 mg/dL (8.4-10.2); Carbon Dioxide 23 mmol/L (22-30); Chloride 93 mmol/L (98-107); Glucose 219 mg/dL (74-99); Non-African American GFR(CKD) >90 (>60 ml/min/1.73 sqM); Potassium 2.9 mmol/L (3.5-5.1); Sodium 128 mmol/L (137-145); Total Bilirubin 0.5 mg/dL (0.2-1.3); Total Protein 6.3 g/dL (6.3-8.2)
[2021-07-28] MEDS ORDERED: ONDANSETRON 4 MG/2 ML VIAL IVP STA ×2 (03:26→05:45)
[2021-07-28] MEDS ORDERED: ALBUTEROL NEBULIZED 2.5 MG/3 ML INHALATION STA (03:49)
[2021-07-28] MEDS ORDERED: POTASSIUM CHLORIDE ER 20 MEQ TAB.ER PO STA ×2 (03:49→18:57)
--- NOTE | 2021-07-28 05:58 | ED ---
General Adult HPI - General Chief complaint: Nausea/Vomiting/Diarrhea Stated complaint: Nausea, Lightheaded Time Seen by Provider: 07/28/21 02:11 Source: patient, family Mode of arrival: ambulatory Limitations: no limitations - History of Present Illness Initial comments: This patient is 65-year-old man who presents with complaint of continuous vomiting. I reports that this had come on over the course of the day. Initially was having some cough and congestion and then progressed to vomiting and he is concerned that he has developed Covid infection. Patient also notes that he had shoulder replacement surgery on July [address] Garcia. He did s top taking the hydrocodone that he had been prescribed on the day prior to his symptoms developing. Patient denies abdominal pain. No hematemesis. No change in bowel movements. Patient states that tonight he was not able to keep any fluids down. Onset/Timin -: days(s) Severity scale (1-10): 0 Consistency: constant Improves with: none Worsens with: none Associated Symptoms: nausea/vomiting Treatments Prior to Arrival: none - Related Data Home Medications Medication Instructions Recorded Confirmed ALPRAZolam [Xanax] 0.5 mg PO HS 03/21/20 07/23/21 Pioglitazone [Actos] 30 mg PO DAILY 03/21/20 07/23/21 amLODIPine [Norvasc] 10 mg PO W/SUPPER 03/21/20 07/23/21 metFORMIN HCL ER [Glucophage XR] 500 mg PO TID-W/MEALS 03/21/20 07/23/21 Enalapril Maleate [Vasotec] 20 mg PO BID 06/05/20 07/23/21 Magnesium Oxide [Mag-Ox] 250 mg PO DAILY 06/05/20 07/23/21 Rosuvastatin Calcium [Crestor] 10 mg PO HS 06/05/20 07/23/21 hydroCHLOROthiazide [Hydrodiuril] 25 mg PO W/LUNCH 06/05/20 07/23/21 Aspirin EC [Ecotrin Low Dose] 81 mg PO DAILY 09/20/20 07/23/21 Multivitamins, Thera [Multivitamin 1 tab PO DAILY 07/16/21 07/23/21 (formulary)] Liraglutide [Victoza 2-Xu] 1.8 mg SQ HS 07/17/21 07/23/21 Tamsulosin [Flomax] 0.4 mg PO DAILY 07/23/21 07/23/21 Previous Rx's Medication Instructions Recorded Docusate [Colace] 100 mg PO BID #60 capsule 07/20/21 Doxycycline Hyclate 100 mg PO BID #10 tab 07/20/21 HYDROcodone/APAP 10-325MG [[place] 1 tab PO Q4HR PRN #42 tab 07/20/21 10-325] Albuterol Inhaler [Ventolin Hfa 2 puff INHALATION Q4HR PRN #1 07/28/21 Inhaler] inhaler Ondansetron Odt [Zofran ODT] 4 mg PO Q8HR PRN #10 tab 07/28/21 Allergies Allergy/AdvReac Type Severity Reaction Status Date / Time hydralazine Allergy "pounding Verified 07/28/21 02:09 heart" Sulfa (Sulfonamide Allergy Rash/Hives Verified 07/28/21 02:09 Antibiotics) sulfamethoxazole Allergy Rash/Hives, Verified 07/28/21 02:09 [From Bactrim] neck swelling trimethoprim [From Bactrim] Allergy Rash/Hives, Verified 07/28/21 02:09 neck swelling Review of Systems ROS Statement: Those systems with pertinent positive or pertinent negative responses have been documented in the HPI. ROS Other: All systems not noted in ROS Statement are negative. Constitutional: Denies: fever, chills, weakness ENT: Denies: throat pain Respiratory: Reports: cough. Denies: dyspnea, wheezes Cardiovascular: Denies: chest pain, palpitations, edema Gastrointestinal: Reports: nausea, vomiting. Denies: abdominal pain, diarrhea, constipation, hematemesis, melena, hematochezia Genitourinary: Denies: dysuria, hematuria Musculoskeletal: Denies: back pain Skin: Denies: rash Neurological: Denies: headache, weakness, numbness Past Medical History Past Medical History: Diabetes Mellitus, Hypertension, Osteoarthritis (OA) Additional Past Medical History / Comment(s): constipation/loose stool, bone spurs rt shoulder, hx heart mur[place], "heart block", 08/2020-"infection in stomach", History of Any Multi-Drug Resistant Organisms: None Reported Past Surgical History: Adenoidectomy, Hernia Repair, Orthopedic Surgery, Pacemaker, Tonsillectomy Additional Past Surgical History / Comment(s): umbilical hernia as , kate inguinal hernia, R. shoudler replacement. Past Anesthesia/Blood Transfusion Reactions: No Reported Reaction Additional Past Anesthesia/Blood Transfusion Reaction / Comment(s): . Type of Cardiac Device: Permanent Pacemaker Device Placement Date:: 05/2020 Past Psychological History: Anxiety Smoking Status: Never smoker Past Alcohol Use History: Occasional Past Drug Use History: None Reported - Past Family History Father Family Medical History: Deep Vein Thrombosis (DVT) Additional Family Medical History / Comment(s): QUESTIONABLE CAD Mother Family Medical History: No Reported History Additional Family Medical History / Comment(s): myloplastic syndrome Brother(s) Family Medical History: AICD/Pacemaker General Exam Limitations: no limitations General appearance: alert, in no apparent distress Head exam: Present: atraumatic, normocephalic Eye exam: Present: normal appearance. Absent: scleral icterus, conjunctival injection ENT exam: Present: normal oropharynx Neck exam: Present: normal inspection Respiratory exam: Present: wheezes (Trace expiratory wheeze), other (Occasional nonproductive cough). Absent: respiratory distress, rales, rhonchi, stridor, chest wall tenderness, accessory muscle use, decreased breath sounds Cardiovascular Exam: Present: regular rate, normal rhythm, normal heart sounds. Absent: systolic murmur, diastolic murmur, rubs, gallop GI/Abdominal exam: Present: soft. Absent: distended, tenderness, guarding, rebound, rigid, mass, pulsatile mass, hernia Extremities exam: Present: normal inspection, normal capillary refill. Absent: pedal edema, calf tenderness Back exam: Present: normal inspection. Absent: CVA tenderness (R), CVA tenderness (L) Neurological exam: Present: alert Skin exam: Present: warm, dry, intact, normal color. Absent: rash Course Vital Signs 07/28/21 07/28/21 07/28/21 02:04 04:26 04:33 Temperature 98.3 F Pulse Rate 89 88 90 Respiratory 20 Rate Blood Pressure 162/75 O2 Sat by Pulse 97 Oximetry 07/28/21 06:00 Temperature 98.2 F Pulse Rate 82 Respiratory 18 Rate Blood Pressure 122/70 O2 Sat by Pulse 96 Oximetry EKG Findings - EKG Comments: EKG Findings:: Paced rhythm rate 82 bpm - EKG Results: EKG: interpreted by ROBIN Medical Decision Making - Medical Decision Making Patient is 65-year-old man here with persistent vomiting. He is also having some upper respiratory symptoms and does appear to have some element of bronchitis going on. He is given multiple rounds of antiemetic but continues to have vomiting. In addition to this he has somewhat delayed abnormalities incl uding mild hyponatremia and hypokalemia. Given this will admit to [facility] for continued treatment and likely replacement. - Lab Data Result diagrams: 07/28/21 02:39 07/28/21 02:39 Lab Results 07/28/21 07/28/21 07/28/21 Range/Units 02:17 02:39 02:39 WBC 5.3 (3.8-10.6) k/uL RBC 3.69 L (4.30-5.90) m/uL Hgb 11.4 L (13.0-17.5) gm/dL Hct 32.6 L (39.0-53.0) % MCV 88.2 (80.0-100.0) fL MCH 31.0 (25.0-35.0) pg MCHC 35.1 (31.0-37.0) g/dL RDW 14.0 (11.5-15.5) % Plt Count 338 (150-450) k/uL MPV 6.7 Neutrophils % 81 % Lymphocytes % 12 % Monocytes % 4 % Eosinophils % 1 % Basophils % 1 % Neutrophils # 4.3 (1.3-7.7) k/uL Lymphocytes # 0.6 L (1.0-4.8) k/uL Monocytes # 0.2 (0-1.0) k/uL Eosinophils # 0.1 (0-0.7) k/uL Basophils # 0.1 (0-0.2) k/uL Sodium 128 L (137-145) mmol/L Potassium 2.9 L (3.5-5.1) mmol/L Chloride 93 L (98-107) mmol/L Carbon Dioxide 23 (22-30) mmol/L Anion Gap 12 mmol/L BUN 12 (9-20) mg/dL Creatinine 0.72 (0.66-1.25) mg/dL Est GFR (CKD-EPI)AfAm >90 (>60 ml/min/1.73 sqM) Est GFR (CKD-EPI)NonAf >90 (>60 ml/min/1.73 sqM) Glucose 219 H (74-99) mg/dL Calcium 9.5 (8.4-10.2) mg/dL Total Bilirubin 0.5 (0.2-1.3) mg/dL AST 25 (17-59) U/L ALT 25 (4-49) U/L Alkaline Phosphatase 75 (38-126) U/L Troponin I (0.000-0.034) ng/mL NT-Pro-B Natriuret Pep pg/mL Total Protein 6.3 (6.3-8.2) g/dL Albumin 3.8 (3.5-5.0) g/dL Coronavirus (PCR) Not Detected (Not Detectd) 07/28/21 07/28/21 Range/Units 02:39 02:39 WBC (3.8-10.6) k/uL RBC (4.30-5.90) m/uL Hgb (13.0-17.5) gm/dL Hct (39.0-53.0) % MCV (80.0-100.0) fL MCH (25.0-35.0) pg MCHC (31.0-37.0) g/dL RDW (11.5-15.5) % Plt Count (150-450) k/uL MPV Neutrophils % % Lymphocytes % % Monocytes % % Eosinophils % % Basophils % % Neutrophils # (1.3-7.7) k/uL Lymphocytes # (1.0-4.8) k/uL Monocytes # (0-1.0) k/uL Eosinophils # (0-0.7) k/uL Basophils # (0-0.2) k/uL Sodium (137-145) mmol/L Potassium (3.5-5.1) mmol/L Chloride (98-107) mmol/L Carbon Dioxide (22-30) mmol/L Anion Gap mmol/L BUN (9-20) mg/dL Creatinine (0.66-1.25) mg/dL Est GFR (CKD-EPI)AfAm (>60 ml/min/1.73 sqM) Est GFR (CKD-EPI)NonAf (>60 ml/min/1.73 sqM) Glucose (74-99) mg/dL Calcium (8.4-10.2) mg/dL Total Bilirubin (0.2-1.3) mg/dL AST (17-59) U/L ALT (4-49) U/L Alkaline Phosphatase (38-126) U/L Troponin I <0.012 (0.000-0.034) ng/mL NT-Pro-B Natriuret Pep 960 pg/mL Total Protein (6.3-8.2) g/dL Albumin (3.5-5.0) g/dL Coronavirus (PCR) (Not Detectd) Disposition Clinical Impression: Bronchitis, Post-tussive vomiting Disposition: HOME SELF-CARE Condition: Good Instructions (If sedation given, give patient instructions): Acute Bronchitis (ED), Acute Nausea and Vomiting (ED) Prescriptions: Albuterol Inhaler [Ventolin Hfa Inhaler] 2 puff INHALATION Q4HR PRN #1 inhaler PRN Reason: Wheezing Ondansetron Odt [Zofran ODT] 4 mg PO Q8HR PRN #10 tab PRN Reason: Nausea Is patient prescribed a controlled substance at d/c from ED?: No Referrals: Link Gerard DO [Primary Care Provider] - 1-2 days
[2021-07-28] MEDS ORDERED: CALCIUM CARBONATE 500 MG CHEWABLE PO PRN (06:54)
[2021-07-28] MEDS ORDERED: PROMETHAZINE 25 MG TAB PO PRN (06:54)
[2021-07-28] MEDS ORDERED: ONDANSETRON 4 MG/2 ML VIAL IVP PRN (06:54)
[2021-07-28] MEDS ORDERED: NALOXONE 0.4 MG/ML 1 ML VIAL IV PRN (06:54)
[2021-07-28] MEDS ORDERED: METOCLOPRAMIDE 5 MG/ML 2 ML VIAL IVP STA (06:56)
[2021-07-28] MEDS: SODIUM CHLORIDE 0.9% 1,000 ML IV SCH ×2 (07:36→22:18)
[2021-07-28] MEDS: PANTOPRAZOLE 40 MG/10 ML VIAL IV SCH (08:57)
[2021-07-28 09:19] LABS: Glucose,Whole Blood 187 mg/dL (75-99)
[2021-07-28] MEDS ORDERED: HYDROcodone/APAP 10-325MG 1 EACH TAB PO PRN (10:02)
[2021-07-28] MEDS: ALPRAZolam 0.5 MG TAB PO SCH ×2 (10:12→22:18)
[2021-07-28] MEDS: TAMSULOSIN 0.4 MG CAP.ER.24H PO SCH (10:12)
[2021-07-28 11:21] LABS: Glucose,Whole Blood 178 mg/dL (75-99)
[2021-07-28] MEDS: INSULIN ASPART (NovoLOG) 100 UNIT/ML VIAL SQ SCH ×3 (11:41→22:18)
[2021-07-28 16:28] LABS: Glucose,Whole Blood 175 mg/dL (75-99)
[2021-07-28] MEDS: HEPARIN SODIUM,PORCINE/PF 5,000 UNIT/0.5 ML SYRINGE SQ SCH ×2 (16:44→23:47)
--- NOTE | 2021-07-28 17:08 | P.HPIM ---
History of Present Illness H&P Date: 07/28/21 Chief Complaint: Nausea and vomiting Patient is a 65-year-old male with known history of hypertension, hyperlipidemia, diabetes type 2, history of heart block, permanent pacemaker placement, anxiety presents to ER due to complaints nausea and vomiting. Patient states that he underwent right shoulder arthroplasty on 07/19/2021. Patient was discharged on 07/21/2021. Resented back to the hospital on 07/23/2021 with urinary retention and was placed on Silverman catheter. Patient was seen by urology as an outpatient and Silverman breath or has been discontinued and patient is voiding spontaneously. Patient presented back to the hospital due to complaints of continues vomiting. Tried [id number] antacids but could not help. Patient initially had cough and congestion and progress to vomiting. Patient is concerned that he had covid infection. Patient was tested as outpatient which was negative. Denied any complaints of abdominal pain. No diarrhea. Denied any fever or chills. Patient is unable to take down any food which made him come to ER. Laboratory data W65.3 hemoglobin 11.4 and platelets 338 Sodium 128 potassium 2.9 chloride 93 BUN 12 and creatinine 0.7 to, blood sugar is 219 COVID-19 PCR not detected. Review of Systems Constitutional: Patient denies any fever or chills . No generalized weakness or weight loss. Abdomen: Agent does have nausea vomiting. No abdominal pain or diarrhea.. Cardiovascular: Patient denies any chest pain or short of breath no palpitations. Respiratory: patient denied any cough is from production. No shortness of breath Neurologic: Patient denied any numbness or tingling headache. Musculoskeletal: Patient denies any complaints of joint swelling or deformity. Skin: Negative Psychiatric: Negative Endocrine: No heat or cold intolerance. No recent weight gain. Genitourinary: No dysuria or hematuria. All other 14 point ROS negative except the above Past Medical History Past Medical History: Diabetes Mellitus, Hypertension, Osteoarthritis (OA) Additional Past Medical History / Comment(s): constipation/loose stool, bone spurs rt shoulder, hx heart murmer, "heart block", 08/2020-"infection in stomach", History of Any Multi-Drug Resistant Organisms: None Reported Past Surgical History: Adenoidectomy, Hernia Repair, Orthopedic Surgery, Pacemaker, Tonsillectomy Additional Past Surgical History / Comment(s): umbilical hernia as , kate inguinal hernia, R. shoudler replacement. Past Anesthesia/Blood Transfusion Reactions: No Reported Reaction Additional Past Anesthesia/Blood Transfusion Reaction / Comment(s): . Type of Cardiac Device: Permanent Pacemaker Device Placement Date:: 05/2020 Past Psychological History: Anxiety Smoking Status: Never smoker Past Alcohol Use History: Occasional Past Drug Use History: None Reported - Past Family History Father Family Medical History: Deep Vein Thrombosis (DVT) Additional Family Medical History / Comment(s): QUESTIONABLE CAD Mother Family Medical History: No Reported History Additional Family Medical History / Comment(s): myloplastic syndrome Brother(s) Family Medical History: AICD/Pacemaker Medications and Allergies Home Medications Medication Instructions Recorded Confirmed Type ALPRAZolam [Xanax] 0.5 mg PO HS 03/21/20 07/28/21 History Pioglitazone [Actos] 30 mg PO DAILY 03/21/20 07/28/21 History amLODIPine [Norvasc] 10 mg PO W/SUPPER 03/21/20 07/28/21 History metFORMIN HCL ER [Glucophage XR] 500 mg PO TID-W/MEALS 03/21/20 07/28/21 History Enalapril Maleate [Vasotec] 20 mg PO BID 06/05/20 07/28/21 History Magnesium Oxide [Mag-Ox] 250 mg PO DAILY 06/05/20 07/28/21 History Rosuvastatin Calcium [Crestor] 10 mg PO HS 06/05/20 07/28/21 History hydroCHLOROthiazide [Hydrodiuril] 25 mg PO W/LUNCH 06/05/20 07/28/21 History Aspirin EC [Ecotrin Low Dose] 81 mg PO DAILY 09/20/20 07/28/21 History Multivitamins, Thera [Multivitamin 1 tab PO DAILY 07/16/21 07/28/21 History (formulary)] Liraglutide [Victoza 2-Xu] 1.8 mg SQ HS 07/17/21 07/28/21 History Docusate [Colace] 100 mg PO BID #60 capsule 07/20/21 07/28/21 Rx HYDROcodone/APAP 10-325MG [Reeds 1 tab PO Q4HR PRN #42 tab 07/20/21 07/28/21 Rx 10-325] Tamsulosin [Flomax] 0.4 mg PO DAILY 07/23/21 07/28/21 History Albuterol Inhaler [Ventolin Hfa 2 puff INHALATION Q4HR PRN #1 07/28/21 Rx Inhaler] inhaler Ondansetron Odt [Zofran ODT] 4 mg PO Q8HR PRN #10 tab 07/28/21 Rx Pantoprazole Sodium [Protonix] 40 mg PO AC-BRKFST #14 tab 07/28/21 Rx Allergies Allergy/AdvReac Type Severity Reaction Status Date / Time hydralazine Allergy "pounding Verified 07/28/21 07:27 heart" Sulfa (Sulfonamide Allergy Rash/Hives Verified 07/28/21 07:27 Antibiotics) sulfamethoxazole Allergy Rash/Hives, Verified 07/28/21 07:27 [From Bactrim] neck swelling trimethoprim [From Bactrim] Allergy Rash/Hives, Verified 07/28/21 07:27 neck swelling Physical Exam Vitals: Vital Signs Temp Pulse Pulse Resp BP BP Pulse Ox 07/28/21 09:08 16 07/28/21 07:57 87 16 141/76 94 L 07/28/21 07:49 87 18 124/86 99 07/28/21 06:00 98.2 F 82 18 122/70 96 07/28/21 04:33 90 07/28/21 04:26 88 07/28/21 02:04 98.3 F 89 20 162/75 97 Intake and Output 07/27/21 07/28/21 07/28/21 22:59 06:59 14:59 Intake Total 200 Balance 200 Intake: Oral 200 Other: Voiding Method Indwelling Catheter Weight 101.151 kg 101.151 kg PHYSICAL EXAMINATION: Patient is lying in the bed comfortably, no acute distress, awake alert and oriented.. HEENT: Normocephalic. Neck is supple. Pupils reactive. Nostrils clear. Oral cavity is moist. Neck reveals no JVD, carotid bruits, or thyromegaly. CHEST EXAMINATION: Trachea is central. Symmetrical expansion. Lung pereira clear to auscultation and percussion. CARDIAC: Normal S1, S2 with no gallops. No murmurs ABDOMEN: Soft. Bowel sounds normal. No organomegaly. No abdominal bruits. Extremities: reveal no edema. No clubbing or cyanosis Neurologically awake, alert, oriented x3 with well-coordinated movements. No focal deficits noted Skin: No rash or skin lesions. Psychiatric: Coperative. Nonsuicidal Musculoskeletal: No joint swelling or deformity. Normal range of motion. Results CBC & Chem 7: 07/28/21 02:39 07/28/21 02:39 Labs: Abnormal Lab Results - Last 24 Hours (Table) 07/28/21 07/28/21 07/28/21 Range/Units 02:39 02:39 09:05 RBC 3.69 L (4.30-5.90) m/uL Hgb 11.4 L (13.0-17.5) gm/dL Hct 32.6 L (39.0-53.0) % Lymphocytes # 0.6 L (1.0-4.8) k/uL Sodium 128 L (137-145) mmol/L Potassium 2.9 L (3.5-5.1) mmol/L Chloride 93 L (98-107) mmol/L Glucose 219 H (74-99) mg/dL POC Glucose (mg/dL) 187 H (75-99) mg/dL Thrombosis Risk Factor Assmnt - DVT/VTE Prophylaxis DVT/VTE Prophylaxis: Pharmacologic Prophylaxis ordered - Choose All That Apply Each Factor Represents 1 point: History of prior major surgery (<1month), Obesity (BMI >25) Each Risk Factor Represents 2 Points: Age 61-74 years Thrombosis Risk Factor Assessment Total Risk Factor Score: 4 Thrombosis Risk Factor Assessment Level: Moderate Risk Assessment and Plan Assessment: Intractable nausea and vomiting unable to tolerate oral diet. Hypovolemic hyponatremia Severe hypokalemia Recent history of urinary retention currently resolved Status post right total shoulder arthroplasty on 07/19/2021 Hypertension Hyperlipidemia Diabetes type 2 with mild hyperglycemia History of permanent pacemaker placement Anxiety DVT prophylaxis with heparin subcu Plan: Patient is being continued on IV hydration with normal saline and symptomatic management for nausea and vomiting. Continue with Protonix IV daily and will be started on liquid diet. Hydrochlorothiazide is on hold due to hyponatremia and hypokalemia. Currently started back after patient is tolerating oral diet. Which he has been taking for a long time. No firmness of abdominal pain no diarrhea. Symptomatically improving. Continue to follow closely and continue with pain management and bowel regimen. Insulin sliding scale for better blood pressure control. Time with Patient: Greater than 30
[2021-07-28] MEDS ORDERED: amLODIPine 10 MG TAB PO SCH (17:30)
[2021-07-28 18:23] LABS: African American GFR (CKD) >90 (>60 ml/min/1.73 sqM); Anion Gap 9 mmol/L; Blood Urea Nitrogen 8 mg/dL (9-20); Calcium 9.1 mg/dL (8.4-10.2); Carbon Dioxide 25 mmol/L (22-30); Chloride 96 mmol/L (98-107); Glucose 222 mg/dL (74-99); Non-African American GFR(CKD) >90 (>60 ml/min/1.73 sqM); Potassium 3.3 mmol/L (3.5-5.1); Sodium 130 mmol/L (137-145)
[2021-07-28] MEDS ORDERED: ATORVASTATIN 20 MG TAB PO SCH (21:00)
[2021-07-28 22:05] LABS: Glucose,Whole Blood 198 mg/dL (75-99)
[2021-07-28] MEDS: lisinopriL 20 MG TAB PO SCH (22:18)
[2021-07-29 02:33] VITALS: RESP 18
[2021-07-29 06:38] LABS: African American GFR (CKD) >90 (>60 ml/min/1.73 sqM); Anion Gap 8 mmol/L; Blood Urea Nitrogen 9 mg/dL (9-20); Calcium 9.2 mg/dL (8.4-10.2); Carbon Dioxide 25 mmol/L (22-30); Chloride 101 mmol/L (98-107); Glucose 168 mg/dL (74-99); Non-African American GFR(CKD) >90 (>60 ml/min/1.73 sqM); Potassium 3.7 mmol/L (3.5-5.1); Sodium 134 mmol/L (137-145)
[2021-07-29] MEDS: HEPARIN SODIUM,PORCINE/PF 5,000 UNIT/0.5 ML SYRINGE SQ SCH (07:38)
[2021-07-29] MEDS: INSULIN ASPART (NovoLOG) 100 UNIT/ML VIAL SQ SCH ×2 (07:38→12:27)
[2021-07-29 07:56] VITALS: BP 160/82; PULSE 82; TEMP 98.8
[2021-07-29] MEDS ORDERED: MULTIVITAMINS, THERA 1 EACH TAB PO SCH (09:00)
[2021-07-29] MEDS ORDERED: ASPIRIN 81 MG PO SCH (09:00)
[2021-07-29] MEDS: TAMSULOSIN 0.4 MG CAP.ER.24H PO SCH (09:26)
[2021-07-29] MEDS: lisinopriL 20 MG TAB PO SCH (09:26)
[2021-07-29] MEDS: PANTOPRAZOLE 40 MG/10 ML VIAL IV SCH (09:27)
[2021-07-29] MEDS: SODIUM CHLORIDE 0.9% 1,000 ML IV SCH (12:22)
[2021-07-29] MEDS ORDERED: POTASSIUM CHLORIDE ER 20 MEQ TAB.ER PO STA (12:28)
--- NOTE | 2021-08-21 13:27 | P.DS ---
Providers Date of admission: 07/28/21 07:17 Expected date of discharge: 07/29/21 Attending physician: Yvon Cervantes Primary care physician: [facility] Course: Discharge diagnosis Intractable nausea and vomiting unable to tolerate oral diet. possible Acute gastroenteritis Hypovolemic hyponatremia Severe hypokalemia Recent history of urinary retention currently resolved Status post right total shoulder arthroplasty on 07/19/2021 Hypertension Hyperlipidemia Diabetes type 2 with mild hyperglycemia History of permanent pacemaker placement Anxiety DVT prophylaxis with heparin subcu Hospital course Patient is a 65-year-old male with known history of hypertension, hyperlipidemia, diabetes type 2, history of heart block, permanent pacemaker placement, anxiety presents to ER due to complaints nausea and vomiting. Patient states that he underwent right shoulder arthroplasty on 07/19/2021. Patient was discharged on 07/21/2021. Resented back to the hospital on 07/23/2021 with urinary retention and was placed on Silverman catheter. Patient was seen by urology as an outpatient and Silverman breath or has been discontinued and patient is voiding spontaneously. Patient presented back to the hospital due to complaints of continues vomiting. Tried [id number] antacids but could not help. Patient initially had cough and congestion and progress to vomiting. Patient is concerned that he had covid infection. Patient was tested as outpatient which was negative. Denied any complaints of abdominal pain. No diarrhea. Denied any fever or chills. Patient is unable to take down any food which made him come to ER. Laboratory data W65.3 hemoglobin 11.4 and platelets 338 Sodium 128 potassium 2.9 chloride 93 BUN 12 and creatinine 0.7 to, blood sugar is 219 COVID-19 PCR not detected. Patient was continued on IV hydration with normal saline and symptomatic management for nausea and vomiting. Continued with Protonix IV daily and will be started on liquid diet. Hydrochlorothiazide is on hold due to hyponatremia and hypokalemia. Currently started back after patient is tolerating oral diet. Sodium level improved.Patient is tolerating regular diet. Stable to be discharged home. Recommend to follow-up with primary care physician for repeat laboratory work-up in the next 3 to 5 days. PHYSICAL EXAMINATION: Patient is lying in the bed comfortably, no acute distress, awake alert and oriented.. HEENT: Normocephalic. Neck is supple. Pupils reactive. Nostrils clear. Oral cavity is moist. Neck reveals no JVD, carotid bruits, or thyromegaly. CHEST EXAMINATION: Trachea is central. Symmetrical expansion. Lung pereira clear to auscultation and percussion. CARDIAC: Normal S1, S2 with no gallops. No murmurs ABDOMEN: Soft. Bowel sounds normal. No organomegaly. No abdominal bruits. Extremities: reveal no edema. No clubbing or cyanosis Neurologically awake, alert, oriented x3 with well-coordinated movements. No focal deficits noted Skin: No rash or skin lesions. Psychiatric: Coperative. Nonsuicidal Musculoskeletal: No joint swelling or deformity. Normal range of motion. Discharge vitals reviewed. Patient Condition at Discharge: Good Plan - Discharge Summary Discharge Rx Participant: Yes New Discharge Prescriptions: New Albuterol Inhaler [Ventolin Hfa Inhaler] 2 puff INHALATION Q4HR PRN #1 inhaler PRN Reason: Wheezing Ondansetron Odt [Zofran ODT] 4 mg PO Q8HR PRN #10 tab PRN Reason: Nausea Pantoprazole Sodium [Protonix] 40 mg PO AC-BRKFST #14 tab Continue amLODIPine [Norvasc] 10 mg PO W/SUPPER Pioglitazone [Actos] 30 mg PO DAILY metFORMIN HCL ER [Glucophage XR] 500 mg PO TID-W/MEALS ALPRAZolam [Xanax] 0.5 mg PO HS Rosuvastatin Calcium [Crestor] 10 mg PO HS hydroCHLOROthiazide [Hydrodiuril] 25 mg PO W/LUNCH Enalapril Maleate [Vasotec] 20 mg PO BID Magnesium Oxide [Mag-Ox] 250 mg PO DAILY Aspirin EC [Ecotrin Low Dose] 81 mg PO DAILY HYDROcodone/APAP 10-325MG [[place] 10-325] 1 tab PO Q4HR PRN #42 tab PRN Reason: Pain Tamsulosin [Flomax] 0.4 mg PO DAILY Multivitamins, Thera [Multivitamin (formulary)] 1 tab PO DAILY Liraglutide [Victoza 2-Xu] 1.8 mg SQ HS Docusate [Colace] 100 mg PO BID #60 capsule Discharge Medication List ALPRAZolam [Xanax] 0.5 mg PO HS 03/21/20 [History] Pioglitazone [Actos] 30 mg PO DAILY 03/21/20 [History] amLODIPine [Norvasc] 10 mg PO W/SUPPER 04/21/20 [History] metFORMIN HCL ER [Glucophage XR] 500 mg PO TID-W/MEALS 03/21/20 [History] Enalapril Maleate [Vasotec] 20 mg PO BID 06/05/20 [History] Magnesium Oxide [Mag-Ox] 250 mg PO DAILY 06/05/20 [History] Rosuvastatin Calcium [Crestor] 10 mg PO HS 06/05/20 [History] hydroCHLOROthiazide [Hydrodiuril] 25 mg PO W/LUNCH 06/05/20 [History] Aspirin EC [Ecotrin Low Dose] 81 mg PO DAILY 09/20/20 [History] Multivitamins, Thera [Multivitamin (formulary)] 1 tab PO DAILY 07/16/21 [History] Liraglutide [Victoza 2-Xu] 1.8 mg SQ HS 07/17/21 [History] Docusate [Colace] 100 mg PO BID #60 capsule 07/20/21 [Rx] HYDROcodone/APAP 10-325MG [[place] 10-325] 1 tab PO Q4HR PRN #42 tab 07/20/21 [Rx] Tamsulosin [Flomax] 0.4 mg PO DAILY 07/23/21 [History] Albuterol Inhaler [Ventolin Hfa Inhaler] 2 puff INHALATION Q4HR PRN #1 inhaler 07/28/21 [Rx] Ondansetron Odt [Zofran ODT] 4 mg PO Q8HR PRN #10 tab 07/28/21 [Rx] Pantoprazole Sodium [Protonix] 40 mg PO AC-BRKFST #14 tab 07/28/21 [Rx] Follow up Appointment(s)/Referral(s): Link Gerard DO [Primary Care Provider] - 1-2 days Patient Instructions/Handouts: Acute Bronchitis (ED), Acute Nausea and Vomiting (ED) Discharge Disposition: HOME SELF-CARE Care Plan Goals (MU): Hold hydrochlorothiazide for 3 days
== END 2021-07-29 14:22 | disposition home or self-care (01) | DRG 641 ==
LOC: EC 02:00 → 4SSUR 07:17
PROVIDERS: ADMIT Hospitalist; ATTEND Hospitalist
DX: E87.1 Hypo-osmolality and hyponatremia (principal); E87.6 Hypokalemia; E11.65 Type 2 diabetes mellitus with hyperglycemia; R19.7 Diarrhea, unspecified; Z20.822 Contact with and (suspected) exposure to COVID-19; Z96.611 Presence of right artificial shoulder joint; Z95.0 Presence of cardiac pacemaker; E78.5 Hyperlipidemia, unspecified; E86.1 Hypovolemia; R11.2 Nausea with vomiting, unspecified; I10 Essential (primary) hypertension; J40 Bronchitis, not specified as acute or chronic; F41.9 Anxiety disorder, unspecified; M19.90 Unspecified osteoarthritis, unspecified site; Z79.82 Long term (current) use of aspirin; Z79.84 Long term (current) use of oral hypoglycemic drugs; Z79.899 Other long term (current) drug therapy; Z90.89 Acquired absence of other organs; Z87.19 Personal history of other diseases of the digestive system; Z98.890 Other specified postprocedural states; Z88.2 Allergy status to sulfonamides; Z88.8 Allergy status to other drugs, medicaments and biological substances; Z83.2 Family history of diseases of the blood and blood-forming organs and certain disorders involving the immune mechanism; Z82.49 Family history of ischemic heart disease and other diseases of the circulatory system
CPT/HCPCS: 36415; 71046; 80048; 80053; 83880; 84484; 85025; 87635; 93005; 94640; 96374; 96376; 99285

== ENCOUNTER 2024-04-21 21:26 | Emergency (ER) | payer MEDICARE ==
[2024-04-21 22:57] LABS: Basophils # (A) 0.1 k/uL (0-0.2); Basophils % (A) 1 %; Eosinophils # (A) 0.2 k/uL (0-0.7); Eosinophils % (A) 3 %; HCT 43.3 % (39.0-53.0); HGB 14.5 gm/dL (13.0-17.5); Lymphocytes # (A) 1.2 k/uL (1.0-4.8); Lymphocytes % (A) 18 %; MCH 29.5 pg (25.0-35.0); MCHC 33.5 g/dL (31.0-37.0); Mean Platelet Volume 8.9; Monocytes # (A) 0.4 k/uL (0-1.0); Monocytes % (A) 6 %; Neutrophils # (A) 4.6 k/uL (1.3-7.7); Neutrophils % (A) 71 %; Platelet Count 189 k/uL (150-450); RBC 4.93 m/uL (4.30-5.90); RDW 13.3 % (11.5-15.5); WBC 6.5 k/uL (3.8-10.6)
[2024-04-21 23:03] LABS: ALT 18 U/L (4-49); AST 21 U/L (17-59); African American GFR (CKD) >90 (>60 ml/min/1.73 sqM); Albumin 4.5 g/dL (3.5-5.0); Alkaline Phosphatase 87 U/L (38-126); Anion Gap 11 mmol/L; Blood Urea Nitrogen 20 mg/dL (9-20); Calcium 9.3 mg/dL (8.4-10.2); Carbon Dioxide 24 mmol/L (22-30); Chloride 102 mmol/L (98-107); Glucose 179 mg/dL (74-99); Magnesium 1.6 mg/dL (1.6-2.3); Non-African American GFR(CKD) >90 (>60 ml/min/1.73 sqM); Potassium 3.5 mmol/L (3.5-5.1); Sodium 137 mmol/L (137-145); Total Bilirubin 0.5 mg/dL (0.2-1.3); Total Protein 7.3 g/dL (6.3-8.2)
[2024-04-21 23:06] LABS: INR 0.9 (<1.2); Partial Thromboplastin Time 25.2 sec (22.0-30.0); Prothrombin Time 10.4 sec (10.0-12.5)
--- NOTE | 2024-04-21 23:26 | ED ---
General Adult HPI - General Chief complaint: Recheck/Abnormal Lab/Rx Stated complaint: Heart Palpitations, Headache, Hypertension Time Seen by Provider: 04/21/24 22:24 Source: patient Limitations: no limitations - History of Present Illness Initial comments: 68-year-old male presenting with chief complaint of headache and palpitations. Patient recently started taking Ozempic. Last week when he had his first injection shortly after he started experiencing headache, sensation of heart racing and "I just felt awful". [facility] [address] and was discharged home. He was seen at his hydrodynamicist today and inform them that he was going to take his second dose today. Shortly after taking his second dose he began experiencing a headache and a sensation of his heart racing. He also states that his blood pressure was elevated. He took his evening blood pressure medication and presented here for further evaluation. He is having no chest pain or difficulty breathing. No abdominal pain, nausea, vomiting. No numbness, tingling, weakness. No diaphoresis. No difficulty swallowing or swelling of the lips or face - Related Data Home Medications Medication Instructions Recorded Confirmed ALPRAZolam [Xanax] 0.5 mg PO HS 03/21/20 07/28/21 Pioglitazone [Actos] 30 mg PO DAILY 03/21/20 07/28/21 amLODIPine [Norvasc] 10 mg PO W/SUPPER 03/21/20 07/28/21 metFORMIN HCL ER [Glucophage XR] 500 mg PO TID-W/MEALS 03/21/20 07/28/21 Enalapril Maleate [Vasotec] 20 mg PO BID 06/05/20 07/28/21 Magnesium Oxide [Mag-Ox] 250 mg PO DAILY 06/05/20 07/28/21 Rosuvastatin Calcium [Crestor] 10 mg PO HS 06/05/20 07/28/21 hydroCHLOROthiazide [Hydrodiuril] 25 mg PO W/LUNCH 06/05/20 07/28/21 Aspirin EC [Ecotrin Low Dose] 81 mg PO DAILY 09/20/20 07/28/21 Multivitamins, Thera [Multivitamin 1 tab PO DAILY 07/16/21 07/28/21 (formulary)] Liraglutide [Victoza 2-Xu] 1.8 mg SQ HS 07/17/21 07/28/21 Tamsulosin [Flomax] 0.4 mg PO DAILY 07/23/21 07/28/21 Previous Rx's Medication Instructions Recorded Docusate [Colace] 100 mg PO BID #60 capsule 07/20/21 HYDROcodone/APAP 10-325MG [[place] 1 tab PO Q4HR PRN #42 tab 07/20/21 10-325] Albuterol Inhaler [Ventolin Hfa 2 puff INHALATION Q4HR PRN #1 07/28/21 Inhaler] inhaler Ondansetron Odt [Zofran ODT] 4 mg PO Q8HR PRN #10 tab 07/28/21 Pantoprazole Sodium [Protonix] 40 mg PO AC-BRKFST #14 tab 07/28/21 Allergies Allergy/AdvReac Type Severity Reaction Status Date / Time hydralazine Allergy "pounding Verified 04/21/24 22:17 heart" Sulfa (Sulfonamide Allergy Rash/Hives Verified 04/21/24 22:17 Antibiotics) sulfamethoxazole Allergy Rash/Hives, Verified 04/21/24 22:17 [From Bactrim] neck swelling trimethoprim [From Bactrim] Allergy Rash/Hives, Verified 04/21/24 22:17 neck swelling Review of Systems ROS Statement: Those systems with pertinent positive or pertinent negative responses have been documented in the HPI. ROS Other: All systems not noted in ROS Statement are negative. Past Medical History Past Medical History: Diabetes Mellitus, Hypertension, Osteoarthritis (OA) Additional Past Medical History / Comment(s): constipation/loose stool, bone spurs rt shoulder, hx heart [place], "heart block", 08/2020-"infection in stomach", History of Any Multi-Drug Resistant Organisms: None Reported Past Surgical History: Adenoidectomy, Hernia Repair, Orthopedic Surgery, Pacemaker, Tonsillectomy Additional Past Surgical History / Comment(s): umbilical hernia as infant, kate inguinal hernia, R. shoudler replacement. Past Anesthesia/Blood Transfusion Reactions: No Reported Reaction Additional Past Anesthesia/Blood Transfusion Reaction / Comment(s): . Type of Cardiac Device: Permanent Pacemaker Device Placement Date:: 05/2020 Past Psychological History: Anxiety Smoking Status: Never smoker Past Alcohol Use History: Occasional Past Drug Use History: None Reported - Past Family History Father Family Medical History: Deep Vein Thrombosis (DVT) Additional Family Medical History / Comment(s): QUESTIONABLE CAD Mother Family Medical History: No Reported History Additional Family Medical History / Comment(s): myloplastic syndrome Brother(s) Family Medical History: AICD/Pacemaker General Exam Limitations: no limitations General appearance: alert, in no apparent distress Head exam: Present: atraumatic, normocephalic Eye exam: Present: normal appearance, EOMI Neck exam: Present: normal inspection. Absent: meningismus Respiratory exam: Present: normal lung sounds bilaterally. Absent: respiratory distress, wheezes, rales, rhonchi, stridor Cardiovascular Exam: Present: regular rate, normal rhythm, normal heart sounds. Absent: systolic murmur, diastolic murmur, rubs, gallop, clicks Extremities exam: Absent: pedal edema Neurological exam: Present: alert, oriented X3 Psychiatric exam: Present: normal affect, normal mood Skin exam: Present: warm, dry Course Vital Signs 04/21/24 04/21/24 04/22/24 22:17 23:25 00:45 Temperature 98.2 F 98.3 F 98 F Pulse Rate 81 73 68 Respiratory 20 18 18 Rate Blood Pressure 168/83 163/89 144/77 O2 Sat by Pulse 98 96 99 Oximetry Medical Decision Making - Medical Decision Making EKG shows electronic ventricular pacemaker ventricular rate 76. MT interval 159. QRS 168. QT 438. QTc 468. Was pt. sent in by a medical professional or institution ([facility], [facility], urgent care, hospital, or group home...) When possible be specific @ -No Did you speak to anyone other than the patient for history (EMS, parent, family, police, friend...)? What history was obtained from this source @ -No Did you review nursing and triage notes (agree or disagree)? Why? @ -I reviewed, the patient tells me that he has not had any chest pain Were old charts reviewed (outside hosp., previous admission, EMS record, old EKG, old radiological studies, urgent care reports/EKG's, group home records)? Report findings @ -No old charts were reviewed Differential Diagnosis (chest pain, altered mental status, abdominal pain women, abdominal pain men, vaginal bleeding, weakness, fever, dyspnea, syncope, headach e, dizziness, GI bleed, back pain, seizure, CVA, palpatations, mental health, musculoskeletal)? @ -Differential Palpitations Ventricular arrhythmias, atrial arrhythmias, myocardial infarction, anemia, thyrotoxicosis, electrolyte imbalance, hypokalemia, pulmonary embolism, pulmonary disease, drugs, alcohol, anxiety, stress.... This is not meant to be an all-inclusive list. EKG interpreted by me (3pts min.). @ -As above X-rays interpreted by me (1pt min.). @ -Chest x-ray shows no acute pulmonary process CT interpreted by me (1pt min.). @ -None done U/S interpreted by me (1pt. min.). @ -None done What testing was considered but not performed or refused? (CT, X-rays, U/S, labs)? Why? @ -None What meds were considered but not given or refused? Why? @ -None Did you discuss the management of the patient with other professionals (professionals i.e. , PA, [facility], lab, RT, psych nurse, social sciences research scientist, reading intervention teacher, teacher, animal services officer, case worker)? Give summary @ -No Was smoking cessation discussed for >3mins.? @ -No Was critical care preformed (if so, how long)? @ -No Were there social determinants of health that impacted care today? How? (Homelessness, low income, unemployed, alcoholism, drug addiction, transportation, low edu. Level, literacy, decrease access to med. care, [facility], rehab)? @ -No Was there de-escalation of care discussed even if they declined (Discuss DNR or withdrawal of care, Hospice)? DNR status @ -No What co-morbidities impacted this encounter? (DM, HTN, Smoking, COPD, CAD, Cancer, CVA, ARF, Chemo, Hep., AIDS, mental health diagnosis, sleep apnea, morb id obesity)? @ -None Was patient admitted / discharged? Hospital course, mention meds given and rou te, prescriptions, significant lab abnormalities, going to OR and other pertinent info. @ -68-year-old male presenting with chief complaint of palpitations and headache. This started this evening after taking his Ozempic. The same thing happened after taking his Ozempic for the first time last week. History and physical exam are conducted. Glucose 179. The remainder of the laboratory studies are negative. Chest x-ray shows no acute process. EKG shows ventricular pacemaker. On reassessment the patient is resting comfortably and reports resolution of his symptoms. He would like to be discharged home. He is instructed to contact his physician regarding the side effects he is experien cing. Discharged home. Follow-up with PCP. Report back to ER with any new or worsening symptoms. Discussed return parameters and answered all questions. Patient conveyed verbal understanding and agreed to the plan. I discussed this case in detail with my attending Dr. Maria Undiagnosed new problem with uncertain prognosis? @ -No Drug Therapy requiring intensive monitoring for toxicity (Heparin, Nitro, Insulin, Cardizem)? @ -No Were any procedures done? @ -No Diagnosis/symptom? @ -Drug reaction Acute, or Chronic, or Acute on Chronic? @ -Acute Uncomplicated (without systemic symptoms) or Complicated (systemic symptoms)? @ -complicated Side effects of treatment? @ -No Exacerbation, Progression, or Severe Exacerbation? @ -No Poses a threat to life or bodily function? How? (Chest pain, [place], HI, pneumonia, PE, COPD, DKA, ARF, appy, cholecystitis, CVA, Diverticulitis, Homicidal, Suicidal, threat to staff... and all critical care pts) @ -Low likelihood - Lab Data Result diagrams: 04/21/24 22:36 04/21/24 22:36 Lab Results 04/21/24 04/21/24 04/21/24 Range/Units 22:36 22:36 22:36 WBC 6.5 (3.8-10.6) k/uL RBC 4.93 (4.30-5.90) m/uL Hgb 14.5 (13.0-17.5) gm/dL Hct 43.3 (39.0-53.0) % MCV 88.0 (80.0-100.0) fL MCH 29.5 (25.0-35.0) pg MCHC 33.5 (31.0-37.0) g/dL RDW 13.3 (11.5-15.5) % Plt Count 189 (150-450) k/uL MPV 8.9 Neutrophils % 71 % Lymphocytes % 18 % Monocytes % 6 % Eosinophils % 3 % Basophils % 1 % Neutrophils # 4.6 (1.3-7.7) k/uL Lymphocytes # 1.2 (1.0-4.8) k/uL Monocytes # 0.4 (0-1.0) k/uL Eosinophils # 0.2 (0-0.7) k/uL Basophils # 0.1 (0-0.2) k/uL PT 10.4 (10.0-12.5) sec INR 0.9 (<1.2) APTT 25.2 (22.0-30.0) sec Sodium 137 (137-145) mmol/L Potassium 3.5 (3.5-5.1) mmol/L Chloride 102 (98-107) mmol/L Carbon Dioxide 24 (22-30) mmol/L Anion Gap 11 mmol/L BUN 20 (9-20) mg/dL Creatinine 0.81 (0.66-1.25) mg/dL Est GFR (CKD-EPI)AfAm >90 (>60 ml/min/1.73 sqM) Est GFR (CKD-EPI)NonAf >90 (>60 ml/min/1.73 sqM) Glucose 179 H (74-99) mg/dL Calcium 9.3 (8.4-10.2) mg/dL Magnesium 1.6 (1.6-2.3) mg/dL Total Bilirubin 0.5 (0.2-1.3) mg/dL AST 21 (17-59) U/L ALT 18 (4-49) U/L Alkaline Phosphatase 87 (38-126) U/L Troponin I (0.000-0.034) ng/mL Total Protein 7.3 (6.3-8.2) g/dL Albumin 4.5 (3.5-5.0) g/dL Urine Color Urine Appearance (Clear) Urine pH (5.0-8.0) Ur Specific [place] (1.001-1.035) Urine Protein (Negative) Urine Glucose (UA) (Negative) Urine Ketones (Negative) Urine Blood (Negative) Urine Nitrite (Negative) Urine Bilirubin (Negative) Urine Urobilinogen (<2.0) mg/dL Ur Leukocyte Esterase (Negative) 04/21/24 04/21/24 Range/Units 22:36 23:31 WBC (3.8-10.6) k/uL RBC (4.30-5.90) m/uL Hgb (13.0-17.5) gm/dL Hct (39.0-53.0) % MCV (80.0-100.0) fL MCH (25.0-35.0) pg MCHC (31.0-37.0) g/dL RDW (11.5-15.5) % Plt Count (150-450) k/uL MPV Neutrophils % % Lymphocytes % % Monocytes % % Eosinophils % % Basophils % % Neutrophils # (1.3-7.7) k/uL Lymphocytes # (1.0-4.8) k/uL Monocytes # (0-1.0) k/uL Eosinophils # (0-0.7) k/uL Basophils # (0-0.2) k/uL PT (10.0-12.5) sec INR (<1.2) APTT (22.0-30.0) sec Sodium (137-145) mmol/L Potassium (3.5-5.1) mmol/L Chloride (98-107) mmol/L Carbon Dioxide (22-30) mmol/L Anion Gap mmol/L BUN (9-20) mg/dL Creatinine (0.66-1.25) mg/dL Est GFR (CKD-EPI)AfAm (>60 ml/min/1.73 sqM) Est GFR (CKD-EPI)NonAf (>60 ml/min/1.73 sqM) Glucose (74-99) mg/dL Calcium (8.4-10.2) mg/dL Magnesium (1.6-2.3) mg/dL Total Bilirubin (0.2-1.3) mg/dL AST (17-59) U/L ALT (4-49) U/L Alkaline Phosphatase (38-126) U/L Troponin I <0.012 (0.000-0.034) ng/mL Total Protein (6.3-8.2) g/dL Albumin (3.5-5.0) g/dL Urine Color Colorless Urine Appearance Clear (Clear) Urine pH 7.0 (5.0-8.0) Ur Specific [place] 1.005 (1.001-1.035) Urine Protein Negative (Negative) Urine Glucose (UA) Negative (Negative) Urine Ketones Negative (Negative) Urine Blood Negative (Negative) Urine Nitrite Negative (Negative) Urine Bilirubin Negative (Negative) Urine Urobilinogen <2.0 (<2.0) mg/dL Ur Leukocyte Esterase Negative (Negative) Disposition Clinical Impression: Drug reaction Disposition: HOME SELF-CARE Condition: Good Instructions (If sedation given, give patient instructions): Semaglutide (By injection), Adverse Drug Reaction (ED) Additional Instructions: Follow-up with your PCP. Report back to ER with any new or worsening symptoms. Is patient prescribed a controlled substance at d/c from ED?: No Referrals: Link Gerard DO [Primary Care Provider] - 1-2 days Time of Disposition: 00:30
[2024-04-21] MEDS: SODIUM CHLORIDE 0.9% 500 ML 500 ML IV STA (23:28)
[2024-04-21 23:35] VITALS: RESP 18
[2024-04-21 23:43] LABS: Appearance,Urine Clear (Clear); Bilirubin,Urine Negative (Negative); Blood,Urine Negative (Negative); Color,Urine Colorless; Glucose,Urine (UA) Negative (Negative); Ketones,Urine Negative (Negative); Leukocyte Esterase,Urine Negative (Negative); Nitrite,Urine Negative (Negative); Protein,Urine Negative (Negative); Specific Gravity,Urine 1.005 (1.001-1.035); Urobilinogen,Urine <2.0 mg/dL (<2.0)
--- NOTE | 2024-04-21 23:50 | XR ---
EXAMINATION TYPE: XR chest 2V DATE OF EXAM: 04/21/2024 COMPARISON: 07/20/2021 INDICATION: Chest pain TECHNIQUE: Frontal and lateral views of the chest are obtained. FINDINGS: The heart size is normal. The pulmonary vasculature is normal. The lungs are clear. Pacemaker overlies left chest. IMPRESSION: 1. No acute pulmonary process.
[2024-04-22 01:33] VITALS: BP 144/77; PULSE 68; TEMP 98
== END 2024-04-22 00:55 | disposition home or self-care (01) ==
LOC: EC 21:26
DX: R00.2 Palpitations (principal); T50.995A Adverse effect of other drugs, medicaments and biological substances, initial encounter; Z88.1 Allergy status to other antibiotic agents; Z88.2 Allergy status to sulfonamides; Z88.8 Allergy status to other drugs, medicaments and biological substances
CPT/HCPCS: 36415; 71046; 80053; 81003; 83735; 84484; 85025; 85610; 85730; 93005; 99285

== ENCOUNTER → 2024-08-03 | Outpatient (CLI) | payer MEDICARE ==
[2024-08-03 17:01] LABS: ALT 12 U/L (10-49); AST 13 U/L (14-35); Albumin 4.3 g/dL (3.8-4.9); Albumin/Globulin Ratio 1.95 Ratio (1.60-3.17); Alkaline Phosphatase 77 U/L (41-126); Calcium 9.4 mg/dL (8.7-10.3); Carbon Dioxide 27.1 mmol/L (21.6-31.8); Chloride 101 mmol/L (96-109); Globulin 2.2 g/dL (1.6-3.3); Glucose 119 mg/dL (70-110); Potassium 4.2 mmol/L (3.5-5.5); Sodium 138 mmol/L (135-145); Total Bilirubin 0.2 mg/dL (0.3-1.2); Total Protein 6.5 g/dL (6.2-8.2)
[2024-08-03 23:16] LABS: Microalbumin Creatinine Ratio <15 mg/g Cr (0-30); Urine Creatinine 82.3 mg/dL (39.0-259.0)
== END | disposition home or self-care (01) ==
LOC: LABWHC1 12:25
PROVIDERS: ATTEND Internal Medicine Interventional Cardiology
DX: E78.2 Mixed hyperlipidemia (principal); E11.65 Type 2 diabetes mellitus with hyperglycemia
CPT/HCPCS: 36415; 80053; 82043; 82570; 83036; 84443